=== PATIENT | female | born 1960 | race Caucasian/White ===

== ENCOUNTER 2022-08-06 09:59 | Outpatient (OUT) | payer BC, SELFPAY ==
--- NOTE | 2022-08-06 10:01 | XR_ITS ---
[address] [address] Patient Name: SHELLEY PITTMAN MRN: [id number] date: 1960 Sex: F Assigned Patient Location: [facility] Current Patient Location: [facility] Accession/Order Number: [id number] Exam Date: 08/06/2022 10:01 Report Date: 08/06/2022 10:26 At the request of: MORENITA MODI Procedure: XR foot RT min 3V PROCEDURE: XR foot RT min 3V COMPARISON: 07/08/2022 HISTORY: RIGHT FOOT PAIN FINDINGS: BONES:Continued healing of a stable nondisplaced nonangulated extra-articular fracture base of the fifth metatarsal. No new fracture or dislocation. Stable degenerative changes. Moderate enthesopathic spurring of the calcaneus at the Achilles insertion SOFT TISSUES:Negative. No visible soft tissue swelling. EFFUSION:None visible. OTHER: Negative. IMPRESSION: Stable healing fracture base of the fifth metatarsal Electronically authenticated by: SIVA HUNTER Date: 08/06/2022 10:26
== END 2022-08-06 10:00 ==
PROVIDERS: PCP Physician Assistant; Visit Provider Physician Assistant
DX: M84.374D Stress fracture, right foot, subsequent encounter for fracture with routine healing (principal)
CPT/HCPCS: 73630

== ENCOUNTER 2022-09-09 10:26 | Outpatient (OUT) | payer BC, SELFPAY ==
--- NOTE | 2022-09-09 10:30 | XR_ITS ---
[address] [address] Patient Name: SHELLEY PITTMAN MRN: [id number] date: 1960 Sex: F Assigned Patient Location: [facility] Current Patient Location: [facility] Accession/Order Number: [id number] Exam Date: 09/09/2022 10:30 Report Date: 09/09/2022 12:42 At the request of: JIGNA BOYKIN Procedure: XR foot RT min 3V PROCEDURE: XR foot RT min 3V DATE: 09/09/2022 9:30 AM CDT COMPARISONS: None CLINICAL INDICATION: RIGHT FOOT PAIN FINDINGS: Transverse fracture proximal aspect fifth metatarsal is again identified. The fracture site is nearly completely obscured by a small amount of sclerosis. There is slight associated callus formation. There is no new or progressing abnormality when compared to previous exam.. There is spurring off posterior os calcis at the attachment of the Achilles. There is mild first metatarsal phalangeal degenerative change. XR/XR foot RT min 3V IMPRESSION: Evidence of healed or nearly completely healed proximal fifth metatarsal fracture. There is slight progression of healing when compared to previous exam. The change from the previous exam is subtle.. Electronically authenticated by: ROSALIA VÁSQUEZ Date: 09/09/2022 12:42
== END 2022-09-09 10:27 | disposition home or self-care (01) ==
LOC: RAD 10:27
PROVIDERS: PCP Family Medicine; Visit Provider Podiatrist Foot & Ankle Surgery
DX: M84.374D Stress fracture, right foot, subsequent encounter for fracture with routine healing (principal)
CPT/HCPCS: 73630

== ENCOUNTER 2022-09-30 10:41 | Outpatient (OUT) | payer BC, SELFPAY ==
--- NOTE | 2022-09-30 10:42 | XR_ITS ---
The [address] [address] Patient Name: SHELLEY PITTMAN MRN: [id number] date: 1960 Sex: F Assigned Patient Location: [facility] Current Patient Location: [facility] Accession/Order Number: [id number] Exam Date: 09/30/2022 10:42 Report Date: 09/30/2022 12:11 At the request of: JIGNA BOYKIN Procedure: XR foot RT min 3V PROCEDURE: XR foot RT min 3V DATE: 09/30/2022 9:42 AM CDT COMPARISONS: 09/09/2022 CLINICAL INDICATION: RIGHT FOOT PAIN FINDINGS: There is no evidence of acute fracture.. There is a nearly completely healed fracture base of the fifth metatarsal similar to previous exam. Osseous structures all remain in good alignment. Mild first metatarsal phalangeal degenerative change again identified. Spurring off the posterior os calcis, stable. XR/XR foot RT min 3V IMPRESSION: Stable right foot radiographs. Electronically authenticated by: ROSALIA VÁSQUEZ Date: 09/30/2022 12:11
== END 2022-09-30 10:42 | disposition home or self-care (01) ==
LOC: RAD 10:41
PROVIDERS: PCP Family Medicine; Visit Provider Podiatrist Foot & Ankle Surgery
DX: M84.374K Stress fracture, right foot, subsequent encounter for fracture with nonunion (principal)
CPT/HCPCS: 73630

== ENCOUNTER 2023-07-17 21:11 | Emergency (ER) | payer BC, SELFPAY ==
[2023-07-17 21:24] VITALS: BP 180/80; PULSE 89; TEMP 36.6; O2SAT 96; BMI 29.7
--- NOTE | 2023-07-17 22:05 | ED.FALL1 ---
HPI HPI - Fall General Chief Complaint: Fall Stated Complaint: FALL, ABDOMINAL/BACK PAIN Time Seen by Provider: 07/17/23 21:25 Source: patient Mode of arrival: walk-in Limitations: no limitations History of Present Illness HPI Narrative: 63-year-old female presents for injuries after a fall. She tripped just before coming into the emergency department and she fell forward hitting her abdomen. She complains of pain across her upper abdomen and on the lateral lower rib region on the right as well. She sustained an abrasion to her upper lip but otherwise did not sustain any other injury. She does not have headache or neck pain. No shortness of breath. The pain is moderate and worse in certain positions. Related Data Allergies Allergy/AdvReac Type Severity Reaction Status Date / Time Penicillins Allergy Verified 07/17/23 22:43 Opioid HPI Opioid Management Most Recent Pain and Opioid Data: Last Pain Scale 8 07/18/23 00:20 Last ED Pain Assessment 07/17/23 22:57 Last MAR Pain Assessment 07/18/23 00:20 Review of Systems ROS Narrative A ten point review of systems is negative except as noted above. Exam Narrative Exam Narrative: Nurses note and vital signs reviewed and patient is not hypoxic. General: The patient appears well and in no apparent distress. Patient is resting comfortably on cart. Skin: Warm, dry, no pallor noted. There is no rash noted. Head: Normocephalic, atraumatic Eye: Normal conjunctiva, no drainage Ears, Nose, Mouth, and Throat: oral mucosa is moist. Nares patent. Upper lip has a very small abrasion laterally. No laceration. No intraoral laceration or chipped teeth. Cardiovascular: Regular Rate and Rhythm Respiratory: Patient is in no distress, no accessory muscle use, lungs are clear to auscultation, no wheezing, rales or rhonchi Back: She has tenderness to the right lower lateral to posterior rib region. There is no crepitus bruise or abrasion or focal area of tenderness. GI: She has tenderness across her upper abdomen. There is no bruises or abrasions to the abdomen. Musculoskeletal: No palpable tenderness to her extremities. Neurological: A&O, normal speech Psychiatric: Cooperative Constitutional Vital Signs, click to edit/add: Last Vital Signs Temp 97.9 F 07/17/23 21:24 Pulse 89 07/17/23 21:24 Resp 17 07/17/23 21:24 BP 180/80 H 07/17/23 21:24 Pulse Ox 96 07/17/23 21:24 O2 Del Method Room Air 07/17/23 21:24 Course Vital Signs Vital signs: Vital Signs Temperature 97.9 F 07/17/23 21:24 Pulse Rate 89 07/17/23 21:24 Respiratory Rate 17 07/17/23 21:24 Blood Pressure 180/80 H 07/17/23 21:24 Pulse Oximetry 96 07/17/23 21:24 Oxygen Delivery Method Room Air 07/17/23 21:24 Temperature 97.9 F 07/17/23 21:24 Pulse Rate 89 07/17/23 21:24 Respiratory Rate 17 07/17/23 21:24 Blood Pressure 180/80 H 07/17/23 21:24 Pulse Oximetry 96 07/17/23 21:24 Oxygen Delivery Method Room Air 07/17/23 21:24 MDM - Fall MDM Narrative Medical decision making narrative: An apparent adrenal hemorrhage is identified on the CAT scan per radiologist. The patient is hemodynamically stable and will need to be transferred to a trauma center. The patient is requesting to leave the hospital and I have spoken to Dr. Plasencia who accepts the patient there and we will transfer her emergency department to emergency department. Findings are discussed thoroughly with the patient and her . Differential Diagnosis Differential diagnosis: Likely other (Abdominal contusion, hepatic injury, renal injury, bowel injury) Lab Data Attestation: I reviewed the patient's lab results. Labs: Lab Results 07/17/23 07/17/23 Range/Units 22:03 22:15 WBC 11.3 H (4.0-11.0) 10^3/uL RBC 4.16 L (4.20-5.40) 10^6/uL Hgb 12.6 (12.0-16.0) g/dL Hct 37.6 (36.0-48.0) % MCV 90.4 (81.0-99.0) fL MCH 30.3 (26.7-34.0) pg MCHC 33.5 (29.9-35.2) g/dL RDW 11.9 (11.0-15.0) % Plt Count 349 (150-450) 10^3/uL MPV 9.4 L (9.5-13.5) fL Neut % (Auto) 73.1 (43.0-75.0) % Lymph % (Auto) 16.7 L (20.5-60.0) % [facility] % (Auto) 8.1 (1.7-12.0) % Eos % (Auto) 1.2 (0.9-7.0) % Baso % (Auto) 0.5 (0.2-2.0) % Neut # (Auto) 8.3 H (1.4-6.5) 10^3/uL Lymph # (Auto) 1.9 (1.2-3.8) 10^3/uL [facility] # (Auto) 0.9 H (0.3-0.8) 10^3/uL Eos # (Auto) 0.1 (0.0-0.7) 10^3/uL Baso # (Auto) 0.1 (0.0-0.1) 10^3/uL Abs Immat Gran (auto) 0.04 H (0.00-0.03) 10^3/uL Imm/Tot Granulo (auto) 0.4 (0.0-0.5) % Sodium 140 (136-145) mmol/L Potassium 2.9 L* (3.5-5.1) mmol/L Chloride 102 (98-107) mmol/L Carbon Dioxide 29.0 (21.0-32.0) mmol/L Anion Gap 11.9 BUN 18.0 (7.0-18.0) mg/dL Creatinine 0.67 (0.55-1.02) mg/dL Est GFR ( Amer) >60 (>=60) Est GFR (Non-Af Amer) >60 (>=60) BUN/Creatinine Ratio 26.9 Glucose 120 H (74-106) mg/dL Calcium 9.0 (8.5-10.1) mg/dL Imaging Data CT scan - abdomen: Radiologist's impression: ITS Impressions Abdomen/Pelvis CT 07/17/23 22:45 IMPRESSION: 1. Diffuse enlargement of the right adrenal gland which measures 57 Hounsfield units with surrounding fat stranding, this is concerning for adrenal hemorrhage. 2. Probable hepatic steatosis. 3. Nonobstructing left renal calculus measuring 6 millimeter. Electronically authenticated by: CLEO Rojas: 07/17/2023 23:51 Critical Care Time Critical Care Time Critical Care Time: Yes Total Critical Care Time: 35 Attestation: Due to the high probability of sudden and clinically significant deterioration in the patient's condition he/she required the highest level of my preparedness to intervene urgently I provided critical care time including documentation time, medication orders and management, reevaluation, vital sign assessment, ordering and reviewing of lab tests, ordering and reviewing of x-ray studies, and admission orders. Aggregate critical care time is 35 minutes including only time during which I was engaged in work directly related to his/her care and did not include time spent treating other patients simultaneously. Discharge Plan Discharge Chief Complaint: Fall Clinical Impression: Adrenal hemorrhage Patient Disposition: [facility] Time of Disposition Decision: 00:24 Discharge Location: [facility] Condition: Fair Mode of Transportation: EMS
[2023-07-17 22:15] VITALS: BP 169/75; PULSE 75; O2SAT 95
[2023-07-17] MEDS: MORPHINE SULFATE 4 MG/ML VIAL 2 MG IV (22:18)
[2023-07-17 22:28] LABS: Anion Gap 11.9; BUN Creatinine Ratio 26.9; Chloride 102 mmol/L (98-107); Estimated GFR (African America >60 (>=60); Estimated GFR (Non-African Ame >60 (>=60); Glucose 120 mg/dL (74-106); Sodium 140 mmol/L (136-145)
[2023-07-17 22:32] LABS: Potassium 2.9 mmol/L (3.5-5.1)
--- NOTE | 2023-07-17 22:45 | CT_ITS ---
The [address] [address] Patient Name: SHELLEY PITTMAN MRN: [id number] date: 1960 Sex: F Assigned Patient Location: ER Current Patient Location: ER Accession/Order Number: [id number] Exam Date: 07/17/2023 22:50 Report Date: 07/17/2023 23:51 At the request of: SAURABH DYSON Procedure: CT abdomen pelvis w con EXAM: CT abdomen pelvis w con HISTORY: fell, hit abd COMPARISON: None. TECHNIQUE: CT of abdomen and pelvis with intravenous contrast. Delayed imaging of the bladder was obtained. Dose reduction techniques were achieved by using automated exposure control and/or adjustment of mA and/or kV according to patient size and/or use of iterative reconstruction technique. FINDINGS: TUBES AND IMPLANTS: None. LOWER CHEST: Unremarkable ABDOMEN and PELVIS ABDOMINAL WALL AND SOFT TISSUES: Unremarkable. BONES: Multilevel degenerative changes of the spine. No acute fracture or dislocation ARTERIES: Mild to moderate aortoiliac atherosclerosis without aneurysm VEINS: Unremarkable. LYMPH NODES: Unremarkable. PERITONEUM/ RETROPERITONEUM: There is fat stranding seen around the right adrenal gland. BOWEL: No obstruction APPENDIX: Unremarkable LIVER: Probable steatosis. GALLBLADDER: Unremarkable. BILE DUCTS: Not dilated SPLEEN: Unremarkable. PANCREAS: Unremarkable. ADRENALS: Diffuse enlargement of the right adrenal gland which measures 57 Hounsfield units. There is surrounding fat stranding. Left adrenal gland is unremarkable KIDNEYS/ URETERS: Nonobstructing left renal calculus measuring 6 millimeters. Left renal cyst. No right stones or hydronephrosis. REPRODUCTIVE ORGANS: Unremarkable URINARY BLADDER: Unremarkable. CT/CT abdomen pelvis w con IMPRESSION: 1. Diffuse enlargement of the right adrenal gland which measures 57 Hounsfield units with surrounding fat stranding, this is concerning for adrenal hemorrhage. 2. Probable hepatic steatosis. 3. Nonobstructing left renal calculus measuring 6 millimeter. Electronically authenticated by: CLEO RUBIO Date: 07/17/2023 23:51
[2023-07-17 22:50] LABS: Basophils Absolute Auto 0.1 10^3/uL (0.0-0.1); Basophils Percent Auto 0.5 % (0.2-2.0); Eosinophils Absolute Auto 0.1 10^3/uL (0.0-0.7); Eosinophils Percent Auto 1.2 % (0.9-7.0); Hematocrit 37.6 % (36.0-48.0); Hemoglobin 12.6 g/dL (12.0-16.0); Immature Granulocytes Abs Auto 0.04 10^3/uL (0.00-0.03); Immature Granulocytes Pct Auto 0.4 % (0.0-0.5); Lymphocytes Absolute Auto 1.9 10^3/uL (1.2-3.8); Lymphocytes Percent Auto 16.7 % (20.5-60.0); Mean Corpuscular HGB Conc 33.5 g/dL (29.9-35.2); Mean Corpuscular Hemoglobin 30.3 pg (26.7-34.0); Mean Corpuscular Volume 90.4 fL (81.0-99.0); Mean Platelet Volume 9.4 fL (9.5-13.5); Monocytes Absolute Auto 0.9 10^3/uL (0.3-0.8); Monocytes Percent Auto 8.1 % (1.7-12.0); Neutrophils Absolute Auto 8.3 10^3/uL (1.4-6.5); Neutrophils Percent Auto 73.1 % (43.0-75.0); Platelet Count 349 10^3/uL (150-450); Red Blood Count 4.16 10^6/uL (4.20-5.40); Red Cell Distribution Width 11.9 % (11.0-15.0); White Blood Count 11.3 10^3/uL (4.0-11.0)
[2023-07-17 23:00] VITALS: BP 172/86; PULSE 65; O2SAT 95
[2023-07-17 23:50] VITALS: PULSE 72; O2SAT 96
[2023-07-18] VITALS: BP 167/87; PULSE 72; O2SAT 95
[2023-07-18] MEDS: MORPHINE SULFATE 4 MG/ML VIAL 2 MG IV (00:20)
[2023-07-18 00:29] VITALS: BP 148/64; PULSE 74; O2SAT 97
[2023-07-18 02:12] VITALS: PULSE 72; O2SAT 97
== END 2023-07-18 02:14 | disposition short-term general hospital (02) ==
PROVIDERS: Emergency Provider Emergency Medicine; PCP Family Medicine
DX: S37.818A Other injury of adrenal gland, initial encounter (principal); W01.10XA Fall on same level from slipping, tripping and stumbling with subsequent striking against unspecified object, initial encounter
CPT/HCPCS: 36415; 74177; 80048; 85025; 96374; 96376; 99285; Q9967

== ENCOUNTER 2023-08-02 05:55 | Emergency (ER) | payer BC, SELFPAY ==
[2023-08-02] VITALS (14 sets, daily range): BP systolic 138–146; BP diastolic 80–81; PULSE 64–92; TEMP 36.9; O2SAT 93–96; BMI 29.6
--- NOTE | 2023-08-02 06:18 | ECG_ITS ---
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
--- NOTE | 2023-08-02 06:19 | ED_ITS ---
HPI HPI - General Adult General Chief complaint: Extremity Problem, Nontraumatic Stated complaint: aniket horse R calf/flank/chest/ pain cough fever Time Seen by Provider: 08/02/23 06:12 Source: patient Limitations: no limitations History of Present Illness HPI narrative: 63-year-old female presented to the emergency department for chief complaint of right calf pain. She is worried about a blood clot. She had a recent hospitalization for a right adrenal hemorrhage which did not require surgery. Her left groin has been hurting and then she had some sharp pains in her chest and she was worried about a blood clot. No fever or productive cough. She has never had a DVT. Related Data Allergies Allergy/AdvReac Type Severity Reaction Status Date / Time Penicillins Allergy Verified 08/02/23 06:04 Opioid HPI Opioid Management Most Recent Opioid Data: Last Pain Scale 8 07/18/23 00:20 Review of Systems ROS Narrative A ten point review of systems is negative except as noted above. Exam Narrative Exam Narrative: Nurses note and vital signs reviewed and patient is not hypoxic. General: The patient appears well and in no apparent distress. Patient is resting comfortably on cart. Skin: Warm, dry, no pallor noted. There is no rash noted. Head: Normocephalic, atraumatic Eye: Normal conjunctiva, no drainage Ears, Nose, Mouth, and Throat: oral mucosa is moist. Nares patent. Cardiovascular: Regular Rate and Rhythm Respiratory: Patient is in no distress, no accessory muscle use, lungs are clear to auscultation, no wheezing, rales or rhonchi Back: non-tender GI: Soft and nontender Musculoskeletal: No mass swelling rash or bruising in the right calf area Neurological: Awake and alert Psychiatric: Cooperative Constitutional Vital Signs, click to edit/add: Last Vital Signs Temp 98.5 F 08/02/23 06:00 Pulse 92 H 08/02/23 06:00 Resp 16 08/02/23 06:00 BP 146/81 H 08/02/23 06:00 Pulse Ox 95 08/02/23 06:00 O2 Del Method Room Air 08/02/23 06:00 Course Vital Signs Vital signs: Vital Signs Temperature 98.5 F 08/02/23 06:00 Pulse Rate 92 H 08/02/23 06:00 Respiratory Rate 16 08/02/23 06:00 Blood Pressure 146/81 H 08/02/23 06:00 Pulse Oximetry 95 08/02/23 06:00 Oxygen Delivery Method Room Air 08/02/23 06:00 Temperature 98.5 F 08/02/23 06:00 Pulse Rate 92 H 08/02/23 06:00 Respiratory Rate 16 08/02/23 06:00 Blood Pressure 146/81 H 08/02/23 06:00 Pulse Oximetry 95 08/02/23 06:00 Oxygen Delivery Method Room Air 08/02/23 06:00 Medical Decision Making MDM Narrative Medical decision making narrative: Tests are ordered including venous Doppler and the patient is signed out to Dr. Graves. Discharge Plan Discharge Chief Complaint: Extremity Problem, Nontraumatic Clinical Impression: Leg pain Patient Disposition: Still a Patient Print Language: Gibraltarian Referrals: ANA FOSTER [Primary Care Provider] - 1 week
--- OUTSIDE RECORDS SUMMARY | 2023-08-02 06:25 | XMS_ITS | CCD ---
Author Organization [facility] ion Partnership [facility] Care Team Providers Care Cut Off Machine Unloader Name Role Phone Unavailable Primary Care Provider UnavailKEYUR Montoya Attending Unavailable HIGHLANDER, JIGNA Cuba Attending Unavailable HIGHLANDER, JIGNA Cuba Admitting Unavailable ELSA, DR SIVA Corrales Consulting Unavailable LY, MORENITA Admitting Unavailable LY, MORENITA Attending Unavailable LY, MORENITA Consulting Unavailable ESTEVANEBSANDRA, DR KWESI Becerra Consulting Unavailable BRYANANDER, JIGNA Cuba Admitting Unavailable HIGHLANDER, JIGNA Cuba Attending Unavailable BRYANANDER, JIGNA Cuba Consulting Unavailable ZIEBER, DR KWESI Becerra Consulting Unavailable HIGHLANDER, JIGNA Cuba Admitting Unavailable HIGHLANDER, JIGNA Cuba Attending Unavailable HIGHLANDER, JIGNA Cuba Consulting Unavailable ZIEBSANDRA, DR KWESI Becerra Consulting Unavailable LY, MORENITA Admitting Unavailable LY, MORENITA Attending Unavailable LY, MORENITA Consulting Unavailable CRISTIAN, ANA F Primary Care Unavailable KWESI ADAMS Attending Unavailable SYLWIA ESCOBAR Admitting Unavailable CRISTIAN, ANA F Referring Unavailable CRISTIAN, ANA F Primary Care Unavailable PASTOR WILKINS Attending Unavailable CRISTIAN, ANA Referring Un[facility] Care Unavailable ERICA FOFANA Attending Unavailable ERICA FOFANA Referring Unavailable CRISTIAN, ANA F Attending Unavailable ERICA FOFANA Attending Unavailable ERICA FOFANA Referring Unavailable CRISTIAN, ANA F Attending Unavailable CRISTIAN, ANA F Attending Unavailable Allergies Allergy Classification Reported Allergen(s) Allergy Type Date of Onset Reaction(s) Facility Penicillins (antibiotic) (1 source) Penicillins; Translations: [PENICILLINS] Drug Allergy 7 [facility] (3 sources) Penicillins; Translations: [PENICILLINS] Propensity to adverse reactions to drug 7 [facility] Medications Completed/Discontinued Medications Medication Drug Class(es) Dates Sig (Normalized) Sig (Original) microencapsulated potassium chloride 20 meq extended release oral tablet (2 sources) Start: 01-03-2022 End: 01-03-2022 potassium chloride (K-DUR) tablet ER 20 mEq Problems Active Problems Problem Classification Problem Date Documented Date Episodic/Chronic Essential hypertension (1 source) Hypertensive disorder Onset: 07-23-2023 Chronic Fracture of lower limb (5 sources) Stress fracture, right foot, subsequent encounter for fracture with routine healing; Translations: [Nondisplaced fracture of fifth metatarsal bone, right foot, subsequent encounter for fracture with routine healing] Onset: 05-16-2022 Episodic Other and ill-defined heart disease (1 source) Other ill-defined heart diseases; Translations: [Other ill-defined heart diseases] Onset: 04-01-2020 Chronic Other connective tissue disease (4 sources) Pain in right foot; Translations: [PAIN IN RIGHT FOOT] Onset: 05-12-2022 Episodic Other endocrine disorders (1 source) Other adrenocortical insufficiency; Translations: [Other adrenocortical insufficiency] Onset: 07-19-2023 Chronic Other injuries and conditions due to external causes (1 source) Unspecified injury of abdomen, initial encounter; Translations: [Unspecified injury of abdomen, initial encounter] Onset: 07-18-2023 Episodic Other lower respiratory disease (2 sources) Dyspnea; Translations: [Shortness of breath] Onset: 01-03-2022 Episodic Other lower respiratory disease (1 source) Shortness of breath; Translations: [Shortness of breath] Onset: 01-03-2022 Episodic Residual codes; unclassified (1 source) Pain, unspecified; Translations: [Pain, unspecified] Onset: 07-18-2023 Episodic Spondylosis; intervertebral disc disorders; other back problems (3 sources) Neck pain; Translations: [Cervicalgia] Onset: 01-03-2022 Episodic Unclassified (1 source) Full code Onset: 07-18-2023 Unclassified (1 source) Supraventricular tachycardia, unspecified; Translations: [Supraventricular tachycardia, unspecified] Onset: 05-31-2017 Past or Other Problems Problem Classification Problem Date Documented Date Episodic/Chronic Other screening for suspected conditions (not mental disorders or infectious disease) (1 source) Abnormal result of other cardiovascular function study; Translations: [Abnormal result of other cardiovascular function study] Onset: 02-07-2020 Episodic Results Test Name Value Interpretation Reference Range Facility BASIC METABOLIC PANLon 07-18 Anion gap [Moles/Vol] 8 mmol/L Normal 5-15 [facility] Comment on above: Performed By: #### C BCA, 36494-7, PINR, 24306-1, 1798-8, CMP, 5643-2 #### [facility] ([id number]) [address], [address] [place] [address] Calcium [Mass/Vol] 7.9 mg/dL Low 8.5-10.5 [facility] Comment on above: Performed By: #### C BCA, 22832-1, PINR, 39299-1, 1798-8, CMP, 5643-2 #### [facility] ([id number]) [address], [address] [place] [address] Chloride [Moles/Vol] 109 mmol/L Normal 98-109 [facility] Comment on above: Performed By: #### C BCA, 20470-8, PINR, 98916-2, 1798-8, CMP, 5643-2 #### [facility] ([id number]) [address], [address] [place] [address] CO2 [Moles/Vol] 26 mmol/L Normal 22-32 [facility] Comment on above: Performed By: #### C BCA, 19490-6, PINR, 17044-7, 1798-8, CMP, 5643-2 #### [facility] ([id number]) [address], [address] [place] [address] Creatinine [Mass/Vol] 0.45 mg/dL Normal 0.40-1.00 [facility] Comment on above: Result Comment: METH OD TRACEABLE TO IDMS STANDARD Performed By: #### C BCA, 05142-6, PINR, 45406-3, 1798-8, CMP, 5643-2 #### [facility] ([id number]) [address], [address] [place] [address] eGFR (CKD-EPI) NON-RACE DEPENDENT >90 Normal >59 [facility] Comment on above: Result Comment: Reported eGFR is based on the CKD-EPI 2020 equation that does not use a race coefficient. Performed By: #### C BCA, 38207-9, PINR, 33701-2, 1798-8, CMP, 5643-2 #### [facility] ([id number]) [address], [address] [place] [address] Glucose [Mass/Vol] 95 mg/dL Normal 65-99 [facility] Comment on above: Performed By: #### C BCA, 99520-3, PINR, 47944-7, 1798-8, CMP, 5643-2 #### [facility] ([id number]) [address], [address] [place] [address] Potassium [Moles/Vol] 3.6 mmol/L Normal 3.5-5.0 [facility] Comment on above: Performed By: #### C BCA, 84424-6, PINR, 19012-3, 1798-8, CMP, 5643-2 #### [facility] ([id number]) [address], [address] [place] [address] Sodium [Moles/Vol] 143 mmol/L Normal 134-146 [facility] Comment on above: Performed By: #### C BCA, 57058-0, PINR, 58455-5, 1798-8, CMP, 5643-2 #### [facility] ([id number]) [address], [address] [place] [address] Urea nitrogen [Mass/Vol] 10 mg/dL Normal 5-27 [facility] Comment on above: Performed By: #### C BCA, 98158-6, PINR, 07312-0, 1798-8, CMP, 5643-2 #### [facility] ([id number]) [address], [address] [place] [address] CBC AND AUTO DIFFon 07-19-19 24 ABSOLUTE BASOPHIL 0.0 X10E9/L Normal 0.0-0.2 [facility] Comment on above: Performed By: #### C BCA, 25672-0, PINR, 51509-3, 1798-8, CMP, 5643-2 #### [facility] ([id number]) [address], [facility] [address] [place] [address] ABSOLUTE NEUTROPHIL 4.9 X10E9/L Normal 1.5-6.6 [facility] Comment on above: Performed By: #### C BCA, 60067-5, PINR, 78729-5, 1798-8, CMP, 5643-2 #### [facility] ([id number]) [address] [address] Basophils/100 WBC (Bld) 0.5 % Normal [facility] Comment on above: Performed By: #### C BCA, 48585-4, PINR, 34914-2, 1798-8, CMP, 5643-2 #### [facility] ([id number]) [address], [address] [address] Eosinophils (Bld) [#/Vol] 0.2 10*3/uL Normal 0.0-0.4 [facility] Comment on above: Performed By: #### C BCA, 15446-6, PINR, 28558-8, 1798-8, CMP, 5643-2 #### [facility] ([id number]) [address] [address] Eosinophils/100 WBC (Bld) 3.0 % Normal [facility] Comment on above: Performed By: #### C BCA, 08853-2, PINR, 65336-6, 1798-8, CMP, 5643-2 #### [facility] ([id number]) [address], [address] [place] [address] Erythrocyte distribution width (RBC) [Ratio] 12.2 % Normal 11.5-15.0 [facility] Comment on above: Performed By: #### C BCA, 79948-9, PINR, 85718-7, 1798-8, CMP, 5643-2 #### [facility] ([id number]) [address] [address] Hematocrit (Bld) [Volume fraction] 35.9 % Normal 35-47 [facility] Comment on above: Performed By: #### C BCA, 25153-2, PINR, 53099-6, 8-8, CMP, 5643-2 #### [facility] ([id number]) [address] [address] Hemoglobin (Bld) [Mass/Vol] 12.6 g/dL Normal 11.7-15.5 [facility] Comment on above: Performed By: #### C BCA, 50847-9, PINR, 26972-4, 8-8, CMP, 5643-2 #### [facility] ([id number]) [address] [address] Lymphocytes (Bld) [#/Vol] 1.7 10*3/uL Normal 1.0-3.5 [facility] Comment on above: Performed By: #### C BCA, 01967-6, PINR, 49550-4, 8-8, CMP, 5643-2 #### [facility] ([id number]) [address] [address] Lymphocytes/100 WBC (Bld) 22.7 % Normal [facility] Comment on above: Performed By: #### C BCA, 77107-2, PINR, 65154-0, 1798-8, CMP, 5643-2 #### [facility] ([id number]) [address] [address] MCH (RBC) [Entitic mass] 30.9 pg Normal 27-34 [facility] Comment on above: Performed By: #### C BCA, 49395-5, PINR, 54618-5, 1798-8, CMP, 5643-2 #### [facility] ([id number]) [address] [address] MCHC (RBC) [Mass/Vol] 34.9 g/dL Normal 32-36 [facility] Comment on above: Performed By: #### C BCA, 00166-6, PINR, 07827-0, 8-8, CMP, 5643-2 #### [facility] ([id number]) [address] [address] MCV (RBC) [Entitic vol] 89 fL Normal 80-100 [facility] Comment on above: Performed By: #### C BCA, 97291-2, PINR, 43242-4, 1797-8, CMP, 5643-2 #### [facility] ([id number]) [address] [address] Monocytes (Bld) [#/Vol] 0.8 10*3/uL Normal 0-0.9 [facility] Comment on above: Performed By: #### C BCA, 43532-1, PINR, 01742-6, 1797-8, CMP, 5643-2 #### [facility] ([id number]) [address] [address] Monocytes/100 WBC (Bld) 10.1 % Normal [facility] Comment on above: Performed By: #### C BCA, 60784-9, PINR, 01153-4, 1797-8, CMP, 5643-2 #### [facility] ([id number]) [address] [address] Neutrophils/100 WBC (Bld) 63.7 % Normal [facility] Comment on above: Performed By: #### C BCA, 61550-9, PINR, 08897-6, 1798-8, CMP, 5643-2 #### [facility] ([id number]) [address] [address] [place] [address] Platelet mean volume (Bld) [Entitic vol] 7.8 fL Normal 7-12 [facility] Comment on above: Performed By: #### C BCA, 60847-3, PINR, 14356-3, 1798-8, CMP, 5643-2 #### [facility] ([id number]) [address] [address] Platelets (Bld) [#/Vol] 298 10*3/uL Normal 150-450 [facility] Comment on above: Performed By: #### C BCA, 15036-3, PINR, 91165-9, 1798-8, CMP, 5643-2 #### [facility] ([id number]) [address] [address] RBC COUNT 4.06 X10E12/L Normal 3.80-5.20 [facility] Comment on above: Performed By: #### C BCA, 62878-3, PINR, 76751-2, 1798-8, CMP, 5643-2 #### [facility] ([id number]) [address] [address] WBC (Bld) [#/Vol] 7.6 10*3/uL Normal 4.0-11.0 [facility] Comment on above: Performed By: #### C BCA, 07867-3, PINR, 38317-9, 1798-8, CMP, 5643-2 #### [facility] ([id number]) [address] [address] AMYLASEon 07-18-2023 Amylase [Catalytic activity/Vol] 83 U/L Normal 28-100 [facility] Comment on above: Performed By: #### C BCA, 26623-1, PINR, 45342-7, 1798-8, CMP, 5643-2 #### [facility] ([id number]) [address], [address] [place] [address] Aldosterone [Mass/Vol]on ALDOSTERONE 12.6 ng/dL Normal [facility] Comment on above: Result Comment: NOTE INTERPRETIVE INFORMATION: Aldosterone, Serum Reference intervals for age 15 and older: Upright ......... 4.0 - 31.0 ng/dL Supine .......... Less than or equal to 16.0 ng/dL Unspecified ..... Less than or equal to 31.0 ng/dL Normal serum levels of aldosterone are dependent on the sodium intake and whether the patient is upright or supine. High sodium intake will tend to suppress serum aldosterone, whereas low sodium intake will elevate serum aldosterone. The reference intervals for serum aldosterone are based on normal sodium intake. Access complete set of age- and/or gender-specific reference intervals for this test in the [facility] ([employer]). Performed By: [employer] [address] [place] [address] Wharfmaster: Jovanni Luna MD, PhD CLIA Number: [id number] CBC AND AUTO DIFFon 07-18-19 24 ABSOLUTE BASOPHIL 0.1 X10E9/L Normal 0.0-0.2 [facility] Comment on above: Performed By: #### C BCA, 90787-4, PINR, 75915-3, 1798-8, CMP, 5643-2 #### [facility] ([id number]) [address] [facility] [place] [address] ABSOLUTE NEUTROPHIL 12.1 X10E9/L High 1.5-6.6 [facility] Comment on above: Performed By: #### C BCA, 72158-6, PINR, 17294-4, 1798-8, CMP, 5643-2 #### [facility] ([id number]) [address], [address] [place] [address] Basophils/100 WBC (Bld) 0.7 % Normal [facility] Comment on above: Performed By: #### C BCA, 93862-6, PINR, 52721-2, 1798-8, CMP, 5643-2 #### [facility] ([id number]) [address], [address] [place] [address] Eosinophils (Bld) [#/Vol] 0.0 10*3/uL Normal 0.0-0.4 [facility] Comment on above: Performed By: #### C BCA, 19197-6, PINR, 28860-8, 1797-8, CMP, 5643-2 #### [facility] ([id number]) [address] [address] Eosinophils/100 WBC (Bld) 0.1 % Normal [facility] Comment on above: Performed By: #### C BCA, 79010-6, PINR, 38241-4, 1797-8, CMP, 5643-2 #### [facility] ([id number]) [address] [address] Erythrocyte distribution width (RBC) [Ratio] 12.1 % Normal 11.5-15.0 [facility] Comment on above: Performed By: #### C BCA, 29209-8, PINR, 40598-3, 8-8, CMP, 5643-2 #### [facility] ([id number]) [address] [address] [place] [address] Hematocrit (Bld) [Volume fraction] 37.1 % Normal 35-47 [facility] Comment on above: Performed By: #### C BCA, 26107-6, PINR, 98024-3, 1798-8, CMP, 5643-2 #### [facility] ([id number]) [address] [address] [place] [address] Hemoglobin (Bld) [Mass/Vol] 12.7 g/dL Normal 11.7-15.5 [facility] Comment on above: Performed By: #### C BCA, 59597-8, PINR, 54136-9, 1798-8, CMP, 5643-2 #### [facility] ([id number]) [address] [address] Lymphocytes (Bld) [#/Vol] 1.7 10*3/uL Normal 1.0-3.5 [facility] Comment on above: Performed By: #### C BCA, 09248-6, PINR, 67473-5, 8-8, CMP, 5643-2 #### [facility] ([id number]) [address] [address] Lymphocytes/100 WBC (Bld) 11.2 % Normal [facility] Comment on above: Performed By: #### C BCA, 51612-9, PINR, 56803-6, 1798-8, CMP, 5643-2 #### [facility] ([id number]) [address] [address] MCH (RBC) [Entitic mass] 30.4 pg Normal 27-34 [facility] Comment on above: Performed By: #### C BCA, 77235-3, PINR, 91518-2, 8-8, CMP, 5643-2 #### [facility] ([id number]) [address] [address] MCHC (RBC) [Mass/Vol] 34.2 g/dL Normal 32-36 [facility] Comment on above: Performed By: #### C BCA, 93815-7, PINR, 73731-6, 1798-8, CMP, 5643-2 #### [facility] ([id number]) [address] [place] [address] MCV (RBC) [Entitic vol] 89 fL Normal 80-100 [facility] Comment on above: Performed By: #### C BCA, 84949-8, PINR, 64017-6, 1798-8, CMP, 5643-2 #### [facility] ([id number]) [address], [facility] [address] [place] [address] Monocytes (Bld) [#/Vol] 1.0 10*3/uL High 0-0.9 [facility] Comment on above: Performed By: #### C BCA, 51640-0, PINR, 21365-8, 8-8, CMP, 5643-2 #### [facility] ([id number]) [address], [facility] [address] [place] [address] Monocytes/100 WBC (Bld) 6.9 % Normal [facility] Comment on above: Performed By: #### C BCA, 52210-0, PINR, 27115-1, 1797-8, CMP, 5643-2 #### [facility] ([id number]) [address], [facility] [address] [place] [address] Neutrophils/100 WBC (Bld) 81.1 % Normal [facility] Comment on above: Performed By: #### Neyda BCA, 49165-5, PINR, 04592-4, 8-8, CMP, 5643-2 #### [facility] ([id number]) [address], [address] [place] [address] Platelet mean volume (Bld) [Entitic vol] 7.5 fL Normal 7-12 [facility] Comment on above: Performed By: #### C BCA, 12036-8, PINR, 37788-0, 1797-8, CMP, 5643-2 #### [facility] ([id number]) [address], [address] [place] [address] Platelets (Bld) [#/Vol] 341 10*3/uL Normal 150-450 [facility] Comment on above: Performed By: #### C BCA, 74381-5, PINR, 14423-8, 1798-8, CMP, 5643-2 #### [facility] ([id number]) [address], [address] [place] [address] RBC COUNT 4.17 X10E12/L Normal 3.80-5.20 [facility] Comment on above: Performed By: #### C BCA, 53371-2, PINR, 25151-1, 1798-8, CMP, 5643-2 #### [facility] ([id number]) [address], [address] [place] [address] WBC (Bld) [#/Vol] 14.9 10*3/uL High 4.0-11.0 [facility] Comment on above: Performed By: #### C BCA, 52306-9, PINR, 85973-4, 1798-8, CMP, 5643-2 #### [facility] ([id number]) [address], [address] [place] [address] COMPREHENSIVE METABOLIC PANE Gomez 07-18-2023 Albumin [Mass/Vol] 4.2 g/dL Normal 3.2-5.3 [facility] Comment on above: Performed By: #### C BCA, 28168-5, PINR, 67888-2, 1798-8, CMP, 5643-2 #### [facility] ([id number]) [address], [address] [place] [address] ALP [Catalytic activity/Vol] 56 U/L Normal 39-130 [facility] Comment on above: Performed By: #### C BCA, 64802-3, PINR, 27400-4, 1798-8, CMP, 5643-2 #### [facility] ([id number]) [address], [address] [place] [address] ALT [Catalytic activity/Vol] 21 U/L Normal 0-31 [facility] Comment on above: Performed By: #### C BCA, 76740-2, PINR, 42686-6, 1798-8, CMP, 5643-2 #### [facility] ([id number]) [address], [address] [place] [address] Anion gap [Moles/Vol] 11 mmol/L Normal 5-15 [facility] Comment on above: Performed By: #### C BCA, 78184-8, PINR, 39832-9, 1798-8, CMP, 5643-2 #### [facility] ([id number]) [address], [address] [place] [address] AST [Catalytic activity/Vol] 24 U/L Normal 0-41 [facility] Comment on above: Performed By: #### C BCA, 89142-8, PINR, 10607-4, 1798-8, CMP, 5643-2 #### [facility] ([id number]) [address], [address] [place] [address] Bilirubin [Mass/Vol] 0.6 mg/dL Normal 0.3-1.2 [facility] Comment on above: Performed By: #### C BCA, 72781-2, PINR, 35312-5, 1798-8, CMP, 5643-2 #### [facility] ([id number]) [address], [address] [place] [address] Calcium [Mass/Vol] 8.7 mg/dL Normal 8.5-10.5 [facility] Comment on above: Performed By: #### C BCA, 29488-9, PINR, 28574-8, 1798-8, CMP, 5643-2 #### [facility] ([id number]) [address], [address] [place] [address] Chloride [Moles/Vol] 101 mmol/L Normal 98-109 [facility] Comment on above: Performed By: #### C BCA, 56540-3, PINR, 39221-9, 1798-8, CMP, 5643-2 #### [facility] ([id number]) [address], [address] [place] [address] CO2 [Moles/Vol] 27 mmol/L Normal 22-32 [facility] Comment on above: Performed By: #### C BCA, 43209-7, PINR, 83664-9, 1798-8, CMP, 5643-2 #### [facility] ([id number]) [address], [address] [place] [address] Creatinine [Mass/Vol] 0.57 mg/dL Normal 0.40-1.00 [facility] Comment on above: Result Comment: METH OD TRACEABLE TO IDMS STANDARD Performed By: #### C BCA, 70111-9, PINR, 10636-9, 1797-8, CMP, 5643-2 #### [facility] ([id number]) [address], [address] [place] [address] eGFR (CKD-EPI) NON-RACE DEPENDENT >90 Normal >59 [facility] Comment on above: Result Comment: Reported eGFR is based on the CKD-EPI 2020 equation that does not use a race coefficient. Performed By: #### C BCA, 34678-2, PINR, 45293-6, 1797-8, CMP, 5643-2 #### [facility] ([id number]) [address], [address] [place] [address] Glucose [Mass/Vol] 144 mg/dL High 65-99 [facility] Comment on above: Performed By: #### C BCA, 84194-6, PINR, 93543-8, 1798-8, CMP, 5643-2 #### [facility] ([id number]) [address], [address] [place] [address] Potassium [Moles/Vol] 3.3 mmol/L Low 3.5-5.0 [facility] Comment on above: Performed By: #### C BCA, 05185-7, PINR, 52378-1, 1798-8, CMP, 5643-2 #### [facility] ([id number]) [address], [address] [place] [address] Protein [Mass/Vol] 6.7 g/dL Normal 6.0-8.0 [facility] Comment on above: Performed By: #### C BCA, 26620-7, PINR, 78432-7, 1798-8, CMP, 5643-2 #### [facility] ([id number]) [address], [address] [place] [address] Sodium [Moles/Vol] 139 mmol/L Normal 134-146 [facility] Comment on above: Performed By: #### C BCA, 27396-8, PINR, 52178-5, 1798-8, CMP, 5643-2 #### [facility] ([id number]) [address], [address] [place] [address] Urea nitrogen [Mass/Vol] 15 mg/dL Normal 5-27 [facility] Comment on above: Performed By: #### C BCA, 14699-0, PINR, 47279-4, 1798-8, CMP, 5643-2 #### [facility] ([id number]) [address], [address] [place] [address] Corticotropin (P) [Mass/Vol] on 07-18-2023 ACTH 10.8 pg/mL Normal 7.2-63.3 [facility] Comment on above: Result Comment: NOTE ACTH Reference Range: 7-10 am: 7.2 - 63.3 pg/mL Test Performed By: [facility] [employer] [address] [place] [address] Wharfmaster: Robbie Tilley III, M.D. CLIA #[id number] Cortisol [Mass/Vol]on 2023 CORTISOL 4.9 ug/dL Normal [facility] Comment on above: Result Comment: Due to the diurnal variation of cortisol levels in normal subjects, all cortisol measurements should be referenced to the time of day of sample collection. AM Cortisol Age>=6 6.7-22.4 ug/dL PM Cortisol Age>=6 <10 ug/dL Performed By: #### H H, 2823-3, 2143-6 #### [facility] ([id number]) [address], [address] [place] [address] ETHANOLon 07-18-2023 Ethanol [Mass/Vol] mg/dL Normal 0.00-0.08 [facility] Comment on above: Result Comment: This report is intended for use in clinical monitoring or management of patients. Performed By: #### C ARMANDO, 33858-8, PINR, 65190-3, 1798-8, CMP, 5643-2 #### [facility] ([id number]) [address], [address] [place] [address] Fibrinogen Coagulation.deriv ed (PPP) [Mass/Vol]on 07-18-2023 FIBRINOGEN 317 mg/dL Normal 190-480 [facility] Comment on above: Performed By: #### C BCA, 29049-3, PINR, 72502-5, 1798-8, CMP, 5643-2 #### [facility] ([id number]) [address], [address] [place] [address] HGB AND HCTon 07-18-2023 Hematocrit (Bld) [Volume fraction] 35.8 % Normal 35-47 [facility] Comment on above: Performed By: #### Neyda BCA, 70344-7, PINR, 38866-2, 1798-8, CMP, 5643-2 #### [facility] ([id number]) [address], [address] [place] [address] Hemoglobin (Bld) [Mass/Vol] 12.3 g/dL Normal 11.7-15.5 [facility] Comment on above: Performed By: #### C BCA, 67245-0, PINR, 96026-6, 1798-8, CMP, 5643-2 #### [facility] ([id number]) [address], [facility] [address] [place] [address] Hematocrit (Bld) [Volume fraction] 36.4 % Normal 35-47 [facility] Comment on above: Performed By: #### C BCA, 59131-0, PINR, 74965-1, 1798-8, CMP, 5643-2 #### [facility] ([id number]) [address], [address] [place] [address] Hemoglobin (Bld) [Mass/Vol] 12.9 g/dL Normal 11.7-15.5 [facility] Comment on above: Performed By: #### C BCA, 27832-2, PINR, 83641-7, 8-8, CMP, 5643-2 #### [facility] ([id number]) [address], [facility] [address] [place] [address] Hematocrit (Bld) [Volume fraction] 37.8 % Normal 35-47 [facility] Comment on above: Performed By: #### Virginia Coleman, 3, 2142-07 #### [facility] ([id number]) [address], [address] [place] [address] Hemoglobin (Bld) [Mass/Vol] 12.7 g/dL Normal 11.7-15.5 [facility] Comment on above: Performed By: #### Virginia Coleman, 2822-04, 2142-07 #### [facility] ([id number]) [address], [address] [place] [address] POTASSIUMon 07-18-2023 Potassium [Moles/Vol] 3.7 mmol/L Normal 3.5-5.0 [facility] Comment on above: Performed By: #### H H, 2823-3, 2143-6 #### [facility] ([id number]) [address], [address] [place] [address] PROTIME AND INRon 07-18-2023 INR Coag (PPP) [Relative time] 1.0 {INR} Normal 0.8-1.1 [facility] Comment on above: Performed By: #### C BCA, 16955-6, PINR, 28015-0, 1798-8, CMP, 5643-2 #### [facility] ([id number]) [address] [facility] [place] [address] PT Coag (PPP) [Time] 11.9 s Normal 9.8-13.2 [facility] Comment on above: Performed By: #### C BCA, 72317-1, PINR, 86643-9, 1798-8, CMP, 5643-2 #### [facility] ([id number]) [address], [address] [place] [address] RENIN ACTIVITYon 07-18-2023 RENIN ACTIVITY 1.0 ng/mL/hr Normal [facility] Comment on above: Result Comment: NOTE INTERPRETIVE INFORMATION: Renin Activity Adult, Normal sodium diet: Supine ................. 0.2-1.6 ng/mL/hr Upright ................ 0.5-4.0 ng/mL/hr Children, Normal sodium diet, Supine: Pacific (1-7 days) ..... 2.0-35.0 ng/mL/hr Cord blood ............. 4.0-32.0 ng/mL/hr 1-12 mos ............... 2.4-37.0 ng/mL/hr 13 mos-3 yrs ........... 1.7-11.2 ng/mL/hr 4-5 yrs ................ 1.0- 6.5 ng/mL/hr 6-10 yrs ............... 0.5- 5.9 ng/mL/hr 11-15 yrs .............. 0.5- 3.3 ng/mL/hr Children, normal sodium diet, Upright: 0-3 yrs ................ Not Available 4-5 yrs ................ Less than or equal to 15 ng/mL/hr 6-10 yrs ............... Less than or equal to 17 ng/mL/hr 11-15 yrs .............. Less than or equal to 16 ng/mL/hr Plasma renin activity measures enzyme ability to convert angiotensinogen to angiotensin I and is limited by the availability of angiotensinogen. Plasma renin activity is not an accurate indicator of enzyme activity when angiotensinogen is decreased. This test was developed and its performance characteristics determined by [facility]. It has not been cleared or approved by the US Food and Drug Administration. This test was performed in a CLIA certified laboratory and is intended for clinical purposes. Performed By: [facility] [address] [place] [address] Wharfmaster: Jovanni Luna MD, PhD CLIA Number: [id number] aPTT Coag (PPP) [Time]on aPTT Coag (Bld) [Time] 32 s Normal 26-37 [facility] Comment on above: Performed By: #### C BCA, 47011-2, PINR, 94669-7, 1798-8, CMP, 5643-2 #### 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 No acute cardiac or pulmonary disease is identified. No worrisome mass lesions or infiltrates are seen. No pulmonary edema or pneumothorax is present. The right heart border is slightly ill defined with hazy density most likely reflecting the patient?s pectus excavatum deformity. Cardiac silhouette size is normal. Prominent aortic knob calcifications. IMPRESSION: COPD, no acute disease. TRANSCRIBED BY: ELECTRONICALLY SIGNED BY: Darrius Butler MD Normal Not Available BI MAMMOGRAM DIAGNOSTIC CALIXTO SYNTHESIS BILATERALon 05-11-2023 BI MAMMOGRAM DIAGNOSTIC TOMOSYNTHESIS BILATERAL This is a summary report. The complete report is available in the patient's medical record. If you cannot access the medical record, please contact the sending organization for a detailed fax or copy. EXAMINATION: BI MAMMOGRAM DIAGNOSTIC TOMOSYNTHESIS BILATERAL CLINICAL HISTORY:right breast pain COMPARISON: May 08, 2021, May 05, 2019. RESULT: Digital mammography and 3D Tomosynthesis was performed Density: Scattered fibroglandular density [2] Overall appearance is stable. Typically benign calcifications. There is no suspicious mass, asymmetry, architectural distortion, or calcification IMPRESSION: BIRADS 2 - Benign. Follow-up: Routine Screening [facility]amm Board Certified Radiologists. Accredited by the ACR and FDA. MAMMOGRAPHY IS VERY IMPORTANT TO YOUR HEALTH. THE [employer] GUIDELINES RECOMMEND THAT WOMEN 40 YEARS OF AGE AND OLDER SHOULD HAVE A MAMMOGRAM EVERY YEAR. A REMINDER LETTER WILL BE SENT AT THE APPROPRIATE TIME. THIS FACILITY UTILIZES A REMINDER SYSTEM TO ENSURE ALL PATIENTS RECEIVE REMINDER NOTIFICATIONS AT THE APPROPRIATE TIME BASED ON THE RECOMMENDATIONS OF THIS EXAM. THIS INCLUDES REMINDERS FOR ROUTINE SCREENING MAMMOGRAMS, DIAGNOSTIC MAMMOGRAMS IN WHICH THE PATIENT IS ASKED TO RETURN FOR ADDITIONAL VIEWS, OR OTHER BREAST IMAGING INTERVENTIONS WHEN APPROPRIATE. THE PATIENT WILL BE PLACED IN THE APPROPRIATE REMINDER SYSTEM INCLUDING A REMINDER AT THE APPROPRIATE TIME FOR ANY PENDING ADDITIONAL VIEWS. TRANSCRIBED BY: ELECTRONICALLY SIGNED BY: Darrius Butler MD Normal Not Available B-TYPE NATRIURETIC PEPTIDE ( BRAIN)on 01-03-2022 Natriuretic peptide B (Bld) [Mass/Vol] 13 pg/mL Normal 0-100 [facility] Comment on above: Order Comment: If hi story of congestive heart failure. Performed By: #### L AB980, BNP #### [facility] (DEFAULT) [address] [place] [address] Interpretation and review of laboratory results Normal [facility] Natriuretic peptide B (Bld) [Mass/Vol] 13 pg/mL 0 - 100 pg/mL [facility] CBC AND ELECTRONIC DIFFon Basophils (Bld) [#/Vol] 0.04 10*3/uL Normal 0.00-0.15 [facility] Comment on above: Performed By: #### L AB980, BNP #### [facility] (DEFAULT) [address] [place] [address] Basophils/100 WBC (Bld) 0.3 % Normal [facility] Comment on above: Performed By: #### L AB980, BNP #### [facility] (DEFAULT) [address] [place] [address] DIFF STATUS Electronic Differential Normal [facility] Comment on above: Performed By: #### L AB980, BNP #### [facility] (DEFAULT) [address] [place] [address] Eosinophils (Bld) [#/Vol] 0.10 10*3/uL Normal 0.00-0.42 [facility] Comment on above: Performed By: #### L AB980, BNP #### [facility] (DEFAULT) [address] [place] [address] Eosinophils/100 WBC (Bld) 0.8 % Normal [facility] Comment on above: Performed By: #### L AB980, BNP #### [facility] (DEFAULT) [address] [place] [address] Hematocrit (Bld) [Volume fraction] 44.0 % Normal 34.9-44.3 [facility] Comment on above: Performed By: #### L AB980, BNP #### [facility] (DEFAULT) [address] [place] [address] Hemoglobin (Bld) [Mass/Vol] 14.7 g/dL Normal 11.4-15.2 [facility] Comment on above: Performed By: #### L AB980, BNP #### [facility] (DEFAULT) [address] [place] [address] Immature Grans % 1.5 % Normal [facility] Comment on above: Performed By: #### L AB980, BNP #### [facility] (DEFAULT) [address] [place] [address] Immature Grans Absolute 0.19 K/uL High <=0.08 [facility] Comment on above: Performed By: #### L AB980, BNP #### [facility] (DEFAULT) [address] [place] [address] Lymphocytes (Bld) [#/Vol] 3.21 10*3/uL Normal 1.16-3.51 [facility] Comment on above: Performed By: #### L AB980, BNP #### [facility] (DEFAULT) [address] [place] [address] Lymphocytes/100 WBC (Bld) 24.7 % Normal [facility] Comment on above: Performed By: #### L AB980, BNP #### [facility] (DEFAULT) [address] [place] [address]51 MCV (RBC) [Entitic vol] 90.3 fL Normal 79.6-97.7 [facility] Comment on above: Performed By: #### L AB980, BNP #### [facility] (DEFAULT) [address] [place] [address] 12558 Mean Cell Hgb 30.2 pg Normal 25.9-33.9 [facility] Comment on above: Performed By: #### L AB980, BNP #### [facility] (DEFAULT) [address] [place] [address]171 Mean Cell Hgb Conc 33.4 g/dL Normal 31.4-35.9 [facility] Comment on above: Performed By: #### L AB980, BNP #### [facility] (DEFAULT) [address] [place] [address]64 Monocytes (Bld) [#/Vol] 1.01 10*3/uL High 0.22-0.87 [facility] Comment on above: Performed By: #### L AB980, BNP #### [facility] (DEFAULT) [address] [place] [address] 35104 Monocytes/100 WBC (Bld) 7.8 % Normal [facility] Comment on above: Performed By: #### L AB980, BNP #### [facility] (DEFAULT) [address] [place] [address]1912 Nucleated RBC 0.0 /100 WBC Normal <=0.2 [facility] Comment on above: Performed By: #### L AB980, BNP #### [facility] (DEFAULT) [address] [place] [address] 36899 Platelet mean volume (Bld) [Entitic vol] 9.0 fL Normal 8.5-12.2 [facility] Comment on above: Performed By: #### L AB980, BNP #### Joanne [facility] (DEFAULT) [address] [place] [address]30 Platelets (Bld) [#/Vol] 409 10*3/uL High 150-393 [facility] Comment on above: Performed By: #### L AB980, BNP #### [facility] (DEFAULT) [address] [place] [address]34 RBC (Bld) [#/Vol] 4.87 10*6/uL Normal 3.91-5.04 [facility] Comment on above: Performed By: #### L AB980, BNP #### [facility] (DEFAULT) [address] [place] [address] 82953 RBC Distribution 11.9 % Normal 10.8-14.9 [facility] Comment on above: Performed By: #### L AB980, BNP #### [facility] (DEFAULT) [address] [place] [address]451 Segs + Bands Auto 64.9 % Normal [facility] Comment on above: Performed By: #### L AB980, BNP #### [facility] (DEFAULT) [address] [place] [address] Segs + Bands,Absolute Auto 8.42 K/uL High 1.64-7.28 [facility] Comment on above: Performed By: #### L AB980, BNP #### [facility] (DEFAULT) [address] [place] [address] WBC (Bld) [#/Vol] 12.97 10*3/uL High 3.99-11.19 [facility] Comment on above: Performed By: #### L AB980, BNP #### [facility] (DEFAULT) [address] [place] [address] Basophils (Bld) [#/Vol] 0.04 10*3/uL 0.00 - 0.15 K/uL [facility] Basophils/100 WBC (Bld) 0.3 % [facility] Differential cell count method Nom (Bld) Electronic Differential [facility] Eosinophils (Bld) [#/Vol] 0.10 10*3/uL 0.00 - 0.42 K/uL [facility] Eosinophils/100 WBC (Bld) 0.8 % [facility] Erythrocyte distribution width (RBC) [Ratio] 11.9 % 10.8 - 14.9 % [facility] Hematocrit (Bld) [Volume fraction] 44.0 % 34.9 - 44.3 % [facility] Hemoglobin (Bld) [Mass/Vol] 14.7 g/dL 11.4 - 15.2 g/dL [facility] Immature granulocytes (Bld) [#/Vol] 0.19 10*3/uL High NINF - 0.08 K/uL [facility] Immature granulocytes/100 WBC (Bld) 1.5 % [facility] Interpretation and review of laboratory results Abnormal [facility] Lymphocytes (Bld) [#/Vol] 3.21 10*3/uL 1.16 - 3.51 K/uL [facility] Lymphocytes/100 WBC (Bld) 24.7 % [facility] MCH (RBC) [Entitic mass] 30.2 pg 25.9 - 33.9 pg [facility] MCHC (RBC) [Mass/Vol] 33.4 g/dL 31.4 - 35.9 g/dL [facility] MCV (RBC) [Entitic vol] 90.3 fL 79.6 - 97.7 fL [facility] Monocytes (Bld) [#/Vol] 1.01 10*3/uL High 0.22 - 0.87 K/uL [facility] Monocytes/100 WBC (Bld) 7.8 % [facility] Neutrophils (Bld) [#/Vol] 8.42 10*3/uL High 1.64 - 7.28 K/uL [facility] Nucleated RBC/100 WBC (Bld) [Ratio] 0.0 % [facility] Platelet mean volume (Bld) [Entitic vol] 9.0 fL 8.5 - 12.2 fL [facility] Platelets (Bld) [#/Vol] 409 10*3/uL High 150 - 393 K/uL [facility] RBC (Bld) [#/Vol] 4.87 10*6/uL [facility] Segmented neutrophils/100 WBC (Bld) 64.9 % [facility] WBC (Bld) [#/Vol] 12.97 10*3/uL High 3.99 - 11 .19 K/uL [facility] CHM 7 - EDon 01-03-2022 Anion gap [Moles/Vol] 11 mmol/L Normal 7-17 [facility] Comment on above: Performed By: #### L LATESHA C7ED #### [facility] (DEFAULT) [address] [address] Chloride [Moles/Vol] 100 mmol/L Normal 98-108 [facility] Comment on above: Performed By: #### L LATESHA C7ED #### [facility] (DEFAULT) [address] [place] [address]853 CO2 [Moles/Vol] 34 mmol/L High 21-31 [facility] Comment on above: Performed By: #### Lilia CHARLTON C7ED #### [facility] (DEFAULT) [address] [place] [address] Creatinine [Mass/Vol] 0.91 mg/dL Normal 0.50-1.20 [facility] Comment on above: Performed By: #### Lilia CHARLTON C7ED #### Joanne [facility] (DEFAULT) [address] [place] [address] GFR/1.73 sq M.predicted among non-blacks MDRD (S/P/Bld) [Vol rate/Area] 71 mL/min/{1.73_m2} Normal >=60 [facility] Comment on above: Result Comment: Repo rted eGFR is based on the CKD-EPI 2020 equation using creatinine, age, and sex. Performed By: #### Lilia CHARLTNO C7ED #### Joanne [facility] (DEFAULT) [address] [place] [address]358 Glucose [Mass/Vol] 113 mg/dL High 70-99 [facility] Comment on above: Performed By: #### Lilia CHARLTON C7ED #### [facility] (DEFAULT) [address] [place] [address]55 Osmolality [Osmolality] 296 mosm/kg Normal 278-305 [facility] Comment on above: Performed By: #### Lilia CHARLTON C7ED #### [facility] (DEFAULT) [address] [place] [address] Potassium [Moles/Vol] 2.9 mmol/L Critically low 3.5-5.0 [facility] Comment on above: Result Comment: Repe ated and verified Performed By: #### Lilia CHARLTON C7ED #### [facility] (DEFAULT) [address] [place] [address] Sodium [Moles/Vol] 142 mmol/L Normal 135-145 [facility] Comment on above: Performed By: #### L ABMURPHYTI1, C7ED #### [facility] (DEFAULT) [address] [place] [address]288 Urea nitrogen [Mass/Vol] 15 mg/dL Normal -25 [facility] Comment on above: Performed By: #### L ABJUNE1, C7ED #### [facility] (DEFAULT) [address] [place] [address]79 Urea nitrogen/Creatinine [Mass ratio] 16 mg/mg Normal [facility] Comment on above: Performed By: #### L CHERI1, C7ED #### [facility] (DEFAULT) [address] [place] [address] CHM 7 - EDOrdered By: Tg Johnson on 01-03-2022 Anion gap [Moles/Vol] 11 mmol/L 7 - 17 mmol/L [facility] Chloride [Moles/Vol] 100 mmol/L 98 - 10 8 mmol/L [facility] CO2 [Moles/Vol] 34 mmol/L High 21 - 31 mmol/L [facility] Creatinine [Mass/Vol] 0.91 mg/dL 0.50 - 1.20 mg/dL [facility] GFR/1.73 sq M.predicted CKD-EPI (S/P/Bld) [Vol rate/Area] 71 - PINF [facility] Comment on above: Reported eGFR is bas ed on the CKD-EPI 2020 equation using creatinine, age, and sex. Glucose [Mass/Vol] 113 mg/dL High 70 - 99 mg/dL [facility] Interpretation and review of laboratory results Abnormal [facility] Osmolality Calc [Osmolality] 296 [facility] Potassium [Moles/Vol] 2.9 mmol/L Critically low 3.5 - 5.0 mmol/L [facility] Comment on above: Repeated and verifie d Sodium [Moles/Vol] 142 mmol/L 135 - 145 mmol/L [facility] Urea nitrogen [Mass/Vol] 15 mg/dL 7 - 25 mg/dL [facility] Urea nitrogen/Creatinine [Mass ratio] 16 mg/mg [facility] D-DIMER,QUANTITATIVEon 01-03 Fibrin D-dimer FEU (PPP) [Mass/Vol] NINF [facility] Comment on above: The D-Dimer assay is intended for use in conjuction with a clinical pretest probability (PTP) assessment model to exclude pulmonary embolism (PE) and as an aid in the diagnosis of Deep Vein Thrombosis (DVT) in outpatients suspected of PE or DVT. For the assay in use at [facility] ([facility]), a cutoff of <0.50 mcg/mL has a Negative Predictive Value of 99.7% for exclusion of DVT in low and moderate PTP patients. Interpretation and review of laboratory results Normal [facility] D-Dimer, High Sensitivity <0.27 Normal <0.50 [facility] Comment on above: Result Comment: The D-Dimer assay is intended for use in conjuction with a clinical pretest probability (PTP) assessment model to exclude pulmonary embolism (PE) and as an aid in the diagnosis of Deep Vein Thrombosis (DVT) in outpatients suspected of PE or DVT. For the assay in use at [facility] ([facility]), a cutoff of <0.50 mcg/mL has a Negative Predictive Value of 99.7% for exclusion of DVT in low and moderate PTP patients. Performed By: #### H SDDI #### [facility] (DEFAULT) [address] [place] [address] HIGH SENSITIVITY TROPONIN I - SINGLE ORDERon 01-03-2022 hs-Troponin I 10 ng/L Normal <34 [facility] Comment on above: Order Comment: If hi story of coronary heart disease. Acute Coronary Syndrome (ACS): Initial Evaluation and Management: [email or web address]/[email or web address]/ebm/Documents/Guidelines/Acute% 20Coronary%20Syndrome.[email or web address] Performed By: #### L ABHSTI1, C7ED #### [facility] (DEFAULT) [address] [place] [address] Interpretation and review of laboratory results Normal [facility] Troponin I.cardiac DL <= 0.01 ng/mL [Mass/Vol] 10 ng/L NINF - 34 ng/L [facility] MINT GREEN TOP TUBEon 2021 [facility] XR CHEST PA AND LATERALon XR CHEST PA AND LATERAL EXAM: XR CHEST PA AND LATERAL, 01/03/2022 13:52 PM COMPARISON: No prior studies available for comparison. CLINICAL INDICATIONS: patient with chest pain RELEVANT CLINICAL HISTORY: FINDINGS: (Adequate technique) Implanted Devices: None Lungs: Clear, without mass, interstitial disease, or consolidation. Pleural Spaces: No pleural effusion. No pneumothorax. Mediastinum and Amparo: Normal Cardiac silhouette and great vessels: Normal heart size. Unremarkable aorta. Chest Wall: Normal IMPRESSION: No acute cardiopulmonary disease Normal [facility] XR Chest PA and Lateralon IMPRESSION: No acute cardiopulmonary disease OLOGY EXAM: XR CHEST PA AN D LATERAL, 01/03/2022 13:52 PM COMPARISON: No prior studies available for comparison. CLINICAL INDICATIONS: patient with chest pain RELEVANT CLINICAL HISTORY: FINDINGS: (Adequate technique) Implanted Devices: None Lungs: Clear, without mass, interstitial disease, or consolidation. Pleural Spaces: No pleural effusion. No pneumothorax. Mediastinum and Amparo: Normal Cardiac silhouette and great vessels: Normal heart size. Unremarkable aorta. Chest Wall: Normal RADIOLOGY Palmira Bautista M D - 01/03/2022 EXAM: XR CHEST PA AND LATERAL, 01/03/2022 13:52 PM COMPARISON: No prior studies available for comparison. CLINICAL INDICATIONS: patient with chest pain RELEVANT CLINICAL HISTORY: FINDINGS: (Adequate technique) Implanted Devices: None Lungs: Clear, without mass, interstitial disease, or consolidation. Pleural Spaces: No pleural effusion. No pneumothorax. Mediastinum and Amparo: Normal Cardiac silhouette and great vessels: Normal heart size. Unremarkable aorta. Chest Wall: Normal IMPRESSION IMPRESSION: No acute cardiopulmonary disease [facility] Radiology Study observation (narrative) [facility] XR Chest PA and LateralOrder ed By: Palmira Bautista on 01-03-2022 [facility] Work Phone: SCREENING MAMMOGRAM W/CALIXTO, BILATERAL*on 05-08-2021 SCREENING MAMMOGRAM W/CALIXTO, BILATERAL* COMPARISON: May 05, 2019, May 25, 2017 TECHNIQUE: 2D and 3D Tomosynthesis of the right and left breasts was performed. FINDINGS: Breast composition demonstrates scattered fibroglandular densities. Overall appearance is stable. No suspicious microcalcifications, asymmetry, architectural distortion, or associated features are present. IMPRESSION: BIRADS 1: Negative mammogram Board Certified Radiologist. Accredited by the ACR and FDA. MAMMOGRAPHY IS VERY IMPORTANT TO YOUR HEALTH. THE CURRENT [employer] [employer] GUIDELINES RECOMMENDS ANNUAL MAMMOGRAPHY BEGINNING AT AGE 40 THIS FACILITY USES A REMINDER SYSTEM TO ENSURE ALL PATIENTS RECEIVE REMINDER NOTIFICATIONS AT THE APPROPRIATE TIME BASED ON THE RECOMMENDATIONS OF THIS EXAM. Report reported and signed by Darrius Butler on 05/09/2021 0917 Normal [facility] Basic Metabolic Panelon 04-22 Anion gap [Moles/Vol] 17 mmol/L Normal 12-20 [facility] Comment on above: Result Comment: Effe ctive 02/27/2019 reference range changed. Performed By: #### B MP #### [facility] [address] [place], [place] [id number] Calcium [Mass/Vol] 9.1 mg/dL Normal 8.6-10.[address] [facility] Comment on above: Performed By: #### B MP #### [facility] [address] [place], [place] [id number] Chloride [Moles/Vol] 104 mmol/L Normal 98-107 [facility] Comment on above: Performed By: #### B MP #### [facility] [address] [place], [place] [id number] CO2 [Moles/Vol] 25 mmol/L Normal 20-31 [facility] Comment on above: Performed By: #### B MP #### [facility] [address] [place], [place] [id number] Creatinine [Mass/Vol] 0.5 mg/dL Low 0.6-1.4 [facility] Comment on above: Performed By: #### B MP #### [facility] [address] [place] [place], [place] [id number] eGFRAA 142 mL/min/1.73m2 Normal >60 [facility] Specialist Comment on above: Performed By: #### B MP #### [facility] [address] [place] [place], [place] [id number] eGFRNAA 117 mL/min/1.73m2 Normal >60 [facility] Specialist Comment on above: Performed By: #### B MP #### [facility] [address] [place], [place] [id number] Glucose [Mass/Vol] 105 mg/dL High 65-99 [facility] Specialist Comment on above: Result Comment: For FASTING Glucose --- ADA reference ranges: Normal 65-99 mg/dl Prediabetes 100-125 Diabetes >/= 126 Performed By: #### B MP #### [facility] [address] [place], [place] [id number] Potassium [Moles/Vol] 3.5 mmol/L Normal 3.5-5.5 [facility] Specialist Comment on above: Performed By: #### B MP #### [facility] [address] [place], [place] [id number] Sodium [Moles/Vol] 142 mmol/L Normal 135-146 [facility] Specialist Comment on above: Performed By: #### B MP #### [facility] [address] [place] [place], [place] [id number] Urea nitrogen [Mass/Vol] 14 mg/dL Normal 7-25 [facility] Specialist Comment on above: Performed By: #### B MP #### [facility] [address] [place], [place] [id number] Complete Blood Count with Au to Diffon 05-06-2021 Basophils (Bld) [#/Vol] 0.04 10*3/uL Normal 0.00-0.20 [facility] Specialist Comment on above: Performed By: #### T SH, CBCAD, LIPD #### [facility] [address] [place], [place] [id number] Basophils/100 WBC (Bld) 0.6 % Normal [facility] Specialist Comment on above: Performed By: #### T SH, CBCAD, LIPD #### [facility] [address] [place] [place], [place] [id number] Eosinophils (Bld) [#/Vol] 0.22 10*3/uL Normal 0.02-0.50 [facility] Specialist Comment on above: Performed By: #### T SH, CBCAD, LIPD #### [facility] [address] [place], [place] [id number] Eosinophils/100 WBC (Bld) 3.2 % Normal [facility] Specialist Comment on above: Performed By: #### T SH, CBCAD, LIPD #### [facility] [address] [place] [place], [place] [id number] Erythrocyte distribution width (RBC) [Ratio] 11.5 % Normal 11.0-15.0 [facility] [employer] [facility]orer Comment on above: Performed By: #### T SH, CBCAD, LIPD #### [facility] [address] [place], [place] [id number] Hematocrit (Bld) [Volume fraction] 41.6 % Normal 35.0-47.0 [facility] [employer] [facility] Comment on above: Performed By: #### T SH, CBCAD, LIPD #### [facility] [address] [place], [place] [id number] Hemoglobin (Bld) [Mass/Vol] 13.8 g/dL Normal 11.6-15.5 [facility] [employer] [facility] Comment on above: Performed By: #### T SH, CBCAD, LIPD #### [facility] [address] [place] [place], [place] [id number] Lymphocytes (Bld) [#/Vol] 1.9 10*3/uL Normal 0.9-3.9 [facility] Specialist Comment on above: Performed By: #### T SH, CBCAD, LIPD #### [facility] [address] [place], [place] [id number] Lymphocytes/100 WBC (Bld) 27.1 % Normal [facility] Specialist Comment on above: Performed By: #### T VISHAL, CBCAD, LIPD #### [facility] [address] [place], [place] [id number] MCH (RBC) [Entitic mass] 29.9 pg Normal 27.0-33.0 [facility] Specialist Comment on above: Performed By: #### T VISHAL, CBCAD, LIPD #### [facility] [address] [place], [place] [id number] MCHC (RBC) [Mass/Vol] 33.2 g/dL Normal 32.0-36.0 [facility] Specialist Comment on above: Performed By: #### T VISHAL, CBCAD, LIPD #### [facility] [address] [place], [place] [id number] MCV (RBC) [Entitic vol] 90 fL Normal 80-100 [facility] Specialist Comment on above: Performed By: #### T VISHAL, CBCAD, LIPD #### [facility] [address] [place] [place], [place] [id number] Monocytes (Bld) [#/Vol] 0.7 10*3/uL Normal 0.2-0.9 [facility] Specialist Comment on above: Performed By: #### T VISHAL, CBCAD, LIPD #### [facility] [address] [place], [place] [id number] Monocytes/100 WBC (Bld) 10.5 % Normal [facility] Specialist Comment on above: Performed By: #### T VISHAL, CBCAD, LIPD #### [facility] [address] [place], [place] [id number] Neutrophils (Bld) [#/Vol] 4.1 10*3/uL Normal 1.5-7.8 [facility] Specialist Comment on above: Performed By: #### T VISHAL, CBCAD, LIPD #### [facility] [address] [place] [place], [place] [id number] Neutrophils/100 WBC (Bld) 58.3 % Normal [facility] Specialist Comment on above: Performed By: #### T VISHAL, CBCAD, LIPD #### [facility] [address] [place], [place] [id number] Platelet mean volume (Bld) [Entitic vol] 9.60 fL Normal 7.50-12.50 [facility] Comment on above: Performed By: #### T VISHAL, CBCAD, LIPD #### [facility] [address] [place], [place] [id number] Platelets (Bld) [#/Vol] 325 10*3/uL Normal 140-400 [facility] Specialist Comment on above: Performed By: #### T VISHAL, CBCAD, LIPD #### [facility] [address] [place], [place] [id number] RBC (Bld) [#/Vol] 4.62 10*6/uL Normal 3.90-5.20 [facility] Comment on above: Performed By: #### T VISHAL, CBCAD, LIPD #### [facility] [address] [place], [place] [id number] RDW-SD 37.7 fL Normal 37.0-50.0 [facility] Specialist Comment on above: Performed By: #### T VISHAL, CBCAD, LIPD #### [facility] [address] [place], [place] [id number] WBC (Bld) [#/Vol] 7.0 10*3/uL Normal 3.8-11.0 [facility] Comment on above: Performed By: #### T VISHAL, CBCAD, LIPD #### [facility] [address] [place], [place] [id number] Lipid Panelon 05-06-2021 Cholesterol [Mass/Vol] 170 mg/dL Normal 125-200 [facility] Specialist Comment on above: Result Comment: Low risk < 200mg/dL Borderline risk 201-239 mg/dl High risk > or equal to 240 Performed By: #### T SH, CBCAD, LIPD #### [facility] [address] [place], [place] [id number] Cholesterol in HDL [Mass/Vol] 44 mg/dL Normal >40 [facility] Specialist Comment on above: Result Comment: High Cardiovascular Risk HDL <40 mg/dL Low Cardiovascular Risk HDL > or equal to 60 mg/dl Performed By: #### T VISHAL, CBCAD, LIPD #### [facility] [address] [place], [place] [id number] Cholesterol in LDL [Mass/Vol] 96 mg/dL Normal [facility] Comment on above: Result Comment: LDL ATP III CLASSIFICATION LDL less than 100 mg/dl Optimal LDL 100-129 mg/dl Near or above optimal LDL 130-159 Borderline high LDL 160-189 High LDL greater than 189 mg/dl Very High Performed By: #### T VISHAL, CBCAD, LIPD #### [facility] [address] [place], [place] [id number] Cholesterol in VLDL [Mass/Vol] 30 mg/dL Normal [facility] Comment on above: Performed By: #### T VISHAL, CBCAD, LIPD #### [facility] [address] [place], [place] [id number] Cholesterol.total/Ch olesterol in HDL [Mass ratio] 4 {ratio} Normal [facility] Comment on above: Performed By: #### T VISHAL, CBCAD, LIPD #### [facility] [address] [place], [place] [id number] Triglyceride [Mass/Vol] 150 mg/dL Normal 30-150 [facility] Specialist Comment on above: Result Comment: TRIG ATPIII CLASSIFICATIONS TRIG less than 150 mg/dl Normal TRIG 150-199 mg/dl Borderline High TRIG 200-500 mg/dl High TRIG greather than 500 mg/dl Very High Performed By: #### T VISHAL, CBCAD, LIPD #### [facility] [address] [place], [place] [id number] TSHon 05-06-2021 TSH 1.680 uIU/mL Normal 0.400-4.500 [facility] Specialist Comment on above: Performed By: #### T VISHAL, CBCAD, LIPD #### [facility] [address] [place], [place] [id number] Comprehensive Metabolic Pane gomez 04-07-2021 Albumin [Mass/Vol] 4.6 g/dL Normal 3.6-5.1 [facility] Comment on above: Performed By: #### C MARV, MG #### [facility] [address] [place], [place] [id number] Albumin/Globulin [Mass ratio] 2.3 {ratio} Normal 1.0-2.5 [facility] Specialist Comment on above: Performed By: #### C MP, MG #### [facility] [address] [place], [place] [id number] ALP [Catalytic activity/Vol] 77 U/L Normal 35-119 [facility] Comment on above: Performed By: #### C MP, MG #### [facility] [address] [place], [place] [id number] ALT [Catalytic activity/Vol] 16 U/L Normal 6-33 [facility] Comment on above: Result Comment: 01/22 Female reference range changed. Performed By: #### C MP, MG #### [facility] [address] [place], [place] [id number] Anion gap [Moles/Vol] 19 mmol/L Normal 12-20 [facility] Comment on above: Result Comment: Effe ctive 02/27/2019 reference range changed. Performed By: #### C MP, MG #### [facility] [address] [place], [place] [id number] AST [Catalytic activity/Vol] 17 U/L Normal 9-34 [facility] Comment on above: Performed By: #### C MP, MG #### [facility] [address] [place], [place] [id number] Bilirubin [Mass/Vol] 0.61 mg/dL Normal 0.30-1.20 [facility] Comment on above: Performed By: #### C MP, MG #### [facility] [address] [facility] [place] [id number] BUN/CREA 22 Ratio Normal 6-22 [facility] Comment on above: Performed By: #### C MP, MG #### [facility] [address] [place] [id number] Calcium [Mass/Vol] 9.5 mg/dL Normal 8.6-10.2 [facility] Comment on above: Performed By: #### C MP, MG #### [facility] [address] [place] [id number] Chloride [Moles/Vol] 103 mmol/L Normal 98-107 [facility] Comment on above: Performed By: #### C MP, MG #### [facility] [address] [place], [place] [id number] CO2 [Moles/Vol] 26 mmol/L Normal 20-31 [facility] Specialist Comment on above: Performed By: #### C MP, MG #### [facility] [address] [place], [place] [id number] Creatinine [Mass/Vol] 0.5 mg/dL Low 0.6-1.4 [facility] Specialist Comment on above: Performed By: #### C MP, MG #### [facility] [address] [place], [place] [id number] eGFRAA 145 mL/min/1.73m2 Normal >60 [facility] Specialist Comment on above: Performed By: #### C MP, MG #### [facility] [address] [place], [place] [id number] eGFRNAA 119 mL/min/1.73m2 Normal >60 [facility] Specialist Comment on above: Performed By: #### C MP, MG #### [facility] [address] [place], [place] [id number] Globulin (S) [Mass/Vol] 2.0 g/dL Normal 1.9-3.7 [facility] [employer] [facility] Comment on above: Performed By: #### C MP, MG #### [facility] [address] [place], [place] [id number] Glucose [Mass/Vol] 111 mg/dL High 65-99 [facility] [employer] [facility] Comment on above: Result Comment: For FASTING Glucose --- ADA reference ranges: Normal 65-99 mg/dl Prediabetes 100-125 Diabetes >/= 126 Performed By: #### C MP, MG #### [facility] [address] [place], [place] [id number] Potassium [Moles/Vol] 3.8 mmol/L Normal 3.5-5.5 [facility] [employer] [facility] Comment on above: Performed By: #### C MP, MG #### [facility] [address] [place], [place] [id number] Protein [Mass/Vol] 6.6 g/dL Normal 6.1-8.1 [facility] [employer] Comment on above: Performed By: #### C MP, MG #### [facility] [address] [place], [place] [id number] Sodium [Moles/Vol] 143 mmol/L Normal 135-146 Sofia sandra [place] [employer] [facility] Comment on above: Performed By: #### C MP, MG #### [facility] [address] [place], [place] [id number] Urea nitrogen [Mass/Vol] 12 mg/dL Normal 7-25 [facility] [employer] [facility] Comment on above: Performed By: #### C MP, MG #### [facility] [address] [place], [place] [id number] Magnesiumon 04-07-2021 Magnesium [Mass/Vol] 2.1 mg/dL Normal 1.5-2.3 Venancio leigh [place] [employer] [facility] Comment on above: Performed By: #### C MP, MG #### [facility] [address] [place], [place] [id number] Vital Signs Date Time Vital Sign Value Performing Clinician Faci lity 01-03-2022 14:15-0500 Diastolic blood pressure 58 mm[Hg] Washington Azar MD Work Phone: [facility] 01-03-2022 14:15-0500 Heart rate 74 /min Washington Azar MD Work Phone: [facility] 01-03-2022 14:15-0500 Respiratory rate 18 /min Washington Azar MD Work Phone: [facility] 01-03-2022 14:15-0500 SaO2% (BldA) [Mass fraction] 94 % Washington Azar MD Work Phone: [facility] 01-03-2022 14:15-0500 Systolic blood pressure 115 mm[Hg] Washington Azar MD Work Phone: [facility] 01-03-2022 12:23-0500 Body temperature 98.01 [degF] Washington Azar MD Work Phone: [facility] Encounters Encounter Date Encounter Type Care Provider Facility Start: 07-23-2023 End: 07-23-2023 ambulatory ANA FOSTER Not Available Start: 07-23-2023 End: 07-23-2023 ambulatory PASTOR WILKINS [facility] Start: 07-18-2023 End: 07-19-2023 ambulatory ANA FOSTER [facility] Start: 06-28-2023 End: 06-28-2023 ambulatory ERICA FOFANA Not Available Start: 06-28-2023 End: 06-28-2023 ambulatory ERICA FOFANA Not Available Start: 05-20-2023 End: 05-20-2023 ambulatory ANA FOSTER Not Available Start: 05-11-2023 End: 05-11-2023 ambulatory ERICA FOFANA Not Available Start: 05-04-2023 End: 05-04-2023 ambulatory ERICA FOFANA Not Available Start: 02-11-2023 End: 02-11-2023 ambulatory ANA FOSTER Not Available Start: 07-08-2022 ambulatory JIGNA BOYKIN Faci lity:[facility] Start: 06-03-2022 End: 06-04-[address] KWESI MUNOZ Facility:[facility] Start: 05-12-2022 End: 05-13-[address] KWESI MUNOZ Facility:[facility] Start: 04-21-2022 End: 04-22-[address] SIVA HUNTER Facility:[facility] Start: 01-03-2022 End: 01-03-2022 Emergency department patient visit KEYUR NAYAK Facility:[facility] Start: 01-03-2022 End: 01-03-2022 Emergency department patient visit Washington Azar MD Work Phone: [facility] Start: 09-24-2021 End: 09-25-[address] KWESI MUNOZ Facility:[facility] Procedures Date Procedure Procedure Detail Performing Clinician Start: 07-23-2023 Follow-up visit Follow-up PASTOR Sethi CLAUDETTE Start: 01-03-2022 Radiologic exam ches t 2 views Washington Azar MD Work Phone: Start: 01-03-2022 CBC AND ELECTRONIC DIFF Washington Azar MD Work Phone: Start: 01-03-2022 Complete blood count with white cell differential, automated Washington Azar MD Work Phone: Start: 01-03-2022 MINT GREEN TOP TUBE Clinton Azar MD Work Phone: Start: 01-03-2022 Natriuretic peptide Clinton Azar MD Work Phone: Plan of Treatment Date Care Activity Detail Author Start: 10-23-2021 Influenza vaccination INFLUENZA VACC INE (#1) [facility] Start: 2009 Zoster vaccine hzv l saad for subcutaneous use ZOSTER (SHINGLES) VACCINE (1 of 2) [facility] Start: 2004 Screening for malign ant neoplasm of colon COLORECTAL CANCER SCREENING DISCUSSION [facility] Start: 1999 Lipid panel LIPID SCREENING [facility] Start: 1999 Screening for malign ant neoplasm of breast MAMMOGRAM SCREENING DISCUSSION [facility] Start: 1980 Screening for malign ant neoplasm of cervix CERVICAL CANCER SCREENING DISCUSSION [facility] Start: 1978 Third diphtheria, te tanus and acellular pertussis (DTaP) vaccination TDAP (ADULT) [facility] Start: 1977 Tetanus vaccination TETANUS [facility] Start: 1974 HIV screening HIV SCREENING DISCUSSION [facility] Start: 1959 COVID-19 VACCINE (#1) COVID-19 VACCI NE (#1) [facility] Start: 1959 Hepatitis C screening HEPATITI S C VIRUS SCREENING [facility] GOLD TOP TUBE GOLD TOP TUBE La b STAT 01/03/2022 12:37 PM EST [facility] LAVENDER TOP TUBE LAVENDER TOP T UBE Lab STAT 01/03/2022 12:37 PM EST [facility] LT BLUE TOP TUBE LT BLUE TOP TUB E Lab STAT 01/03/2022 12:37 PM EST [facility] RAINBOW DRAW RAINBOW DRAW Lab STAT 01/03/2022 12:37 PM EST [facility] End: 01-03-2022 Standard ECG [facility] Comment on above: One Time for 1 Occur rences starting 01/03/2022 until 01/03/2022 Payers Date Payer Category Payer Unknown [employer]ZE ARCINIEGA HM O PPO POS [id number] 2014-Present [address] [place] [address] [id number] 1959 Unknown [id number] [id number] 1959 Unknown [id number] [id number] 1959 Unknown [id number] 2.16.840.1.059728.3.579.2.593 1959 Unknown [id number] 2.16.840.1.560169.3.579.2.593 1959 Unknown [id number] 2.16.840.1.515796.3.579.2.593 1959 Unknown [id number] 2.16.840.1.423642.3.579.2.593 1959 Unknown [id number] 2.16.840.1.583243.3.579.2.1286 1959 Unknown [id number] 2.16.840.1.422355.3.579.2.1286 1959 Unknown [id number] 2.16.840.1.663338.3.579.2.1286 1959 Unknown [id number] 2.16.840.1.134753.3.579.2.1259 1959 Unknown [id number] 2.16.840.1.769580.3.579.2.1259 1959 Unknown [id number] 2.16.840.1.378547.3.579.2.1259 1959 Unknown [id number] 2.16.840.1.886417.3.579.2.1259 1959 Unknown [id number] 2.16.840.1.635602.3.579.2.1259 1959 Unknown [id number] 2.16.840.1.713127.3.579.2.1259 1959 Unknown [id number] 2.16.840.1.634575.3.579.2.1259 1959 Unknown [id number] Social History Date Type Detail Facility Tobacco smoking stat [facility] Start: 1960 Sex Assigned At Not on file [facility] Clinical Notes 09-25-2021 to 06-03-2022 Monica Daniel [facility] - 01/03/2022 4:04 PM FELICITAS Salazar - 01/03/2022 4:04 PM Ra Azar MD - 01/03/2022 2:33 PM Ann Rahman MD - 01/03/2022 2:05 PM EST Note Date & Type Note Facility 06-03-2022 Note PROCEDURE: XR FOOT R T MIN 3 VIEWS HISTORY: Pain in right foot COMPARISON: XR foot right 05/12/2022 FINDINGS: BONES:Persistent thin lucency along lateral margin of the base of fifth metatarsal with adjacent sclerosis. Normal alignment. SOFT TISSUES:No visible soft tissue swelling. EFFUSION:None visible. OTHER: Negative. IMPRESSION: 1. Incomplete osseous healing of base of fifth metatarsal fracture; not appreciably changed. Electronically authenticated by: KWESI MUNOZ Date: 2022-06-03 16:12 [facility] 05-12-2022 Note PROCEDURE: XR FOOT R T MIN 3 VIEWS HISTORY: Pain in right foot COMPARISON: XR foot right 04/13/2022, XR foot right 09/24/2021 FINDINGS: BONES:Thin band of sclerosis across base of fifth metatarsal with slight lucency along lateral cortical margin suggesting mixture of bone healing and bone resorption; likely healing fracture. SOFT TISSUES:No visible soft tissue swelling. EFFUSION:None visible. OTHER: Negative. IMPRESSION: 1. Incomplete/early healing, nondisplaced fracture/stress fracture involving base of fifth metatarsal. Electronically authenticated by: KWESI MUNOZ Date: 2022-05-12 12:34 [facility] 04-21-2022 Note PROCEDURE: XR FOOT R T MIN 3 VIEWS COMPARISON: 09/24/2021 HISTORY: Pain in right foot FINDINGS: BONES:No acute fracture or dislocation. Moderate plantar enthesopathic spurring at the Achilles insertion SOFT TISSUES:Negative. No visible soft tissue swelling. EFFUSION:None visible. OTHER: Negative. IMPRESSION: No acute abnormality Electronically authenticated by: SIVA HUNTER Date: 2022-04-21 17:22 [facility] 01-03-2022 Emergency department Note Reason for Consult: Transportation Consulted By: Nurse ANA contacted by Nurse (Aaliyah) requesting assistance with transportation of patient and her from [facility] to parking lot where their vehicle was left prior to the game ([place] Patient has no other means to get to their vehicle. ANA requested a Lyft for patient and her as patient was ready for discharge. YAO Smith LSW Medical Social Work [facility] 01-03-2022 Emergency department Note Reason for Consult: Transportation Consulted By: Nurse ANA contacted by Nurse (Aaliyah) requesting assistance with transportation of patient and her from [facility] to parking lot where their vehicle was left prior to the game ([place] [address]). Patient has no other means to get to their vehicle. ANA requested a Lyft for patient and her as patient was ready for discharge. YAO Smith LSW Medical Social Work ED Staffing Note Chief complaint: Chief Complaint Patient presents with ALLANI Claudia Lazcano is a 61 y.o. year old female who presents with sob. Started while walking PMH: HTN, asthma Social History Socioeconomic History Marital status: Not on file Spouse name: Not on file Number of children: Not on file Years of education: Not on file Highest education level: Not on file Occupational History Not on file Tobacco Use Smoking status: Not on file Smokeless tobacco: Not on file Substance and Sexual Activity Alcohol use: Not on file Drug use: Not on file Sexual activity: Not on file Other Topics Concern Not on file Social History Narrative Not on file Social Determinants of Health Financial Resource Strain: Not on file Food Insecurity: Not on file Transportation Needs: Not on file Physical Activity: Not on file Stress: Not on file Social Connections: Not on file Intimate Partner Violence: Not on file Housing Stability: Not on file No family history on file. Review of systems including constitutional, skin, HEENT, eyes, CV, respiratory, GI, , MSK, endocrine, neurologic, psychiatric reviewed and negative except as noted above. DDx: Acs, ptx, cap, pe, uri Impression: SOB Plan: Labs, EKG ED Course: Pt was stable on arrival here. NAD. Sx resolved. EKG not ischemic. Labs including d-dimer pending Prior medical records were reviewed. All pertinent labs and imaging results were reviewed and interpreted by me. The patient was updated regarding findings, and was re-assessed during ED stay. This patient's history and physical exam were performed by the resident. On 01/03/2022 I saw and examined the patient. I discussed the history and examination with the resident and agree with the plan of care. In addition, I have fully participated in the care of this patient. I have reviewed all pertinent clinical information, including history, physical exam and medical decision making with the resident. Washington Azar MD 01/03/22 1442 dEPARTMENT of Emergency Medicine CHIEF COMPLAINT URI HPI Claudia Lazcano is a 61 y.o. female with past medical history of HTN, asthma who presents to the ED after episode of SOB and neck pain. Patient states she was walking to the [employer] [place] and had walked about a mile. States she had to stop multiple times due to SOB. States this has been normal for her the past few years and she has upcoming appointment with backwinder. States she walked up a flight of stairs and sat in her seat and then developed SOB, dizziness, and neck pain. States the pain felt tight and was midline. States she has never had pain like that before. Denied chest pain. States all her symptoms have resolved and she feels fine . Has not taken her medications today. Usually takes inhaler for asthma. Has not drank fluids or eaten today. Denies alcohol. States she has had cough for about a week and took last of her z-pack yesterday. Denies recent fevers, chills, or vomiting. REVIEW OF SYSTEMS Review of Systems Constitutional: Negative for chills, diaphoresis and fever. HENT: Negative for congestion, rhinorrhea, sore throat and trouble swallowing. Eyes: Negative for photophobia and visual disturbance. Respiratory: Positive for shortness of breath. Negative for cough. Cardiovascular: Negative for chest pain, palpitations and leg swelling. Gastrointestinal: Negative for abdominal pain, constipation, diarrhea, nausea and vomiting. Genitourinary: Negative for difficulty urinating, dysuria and hematuria. Musculoskeletal: Positive for neck pain. Negative for back pain and gait problem. Neurological: Positive for dizziness. Negative for syncope, weakness, light-headedness, numbness and headaches. Hematological: Negative for adenopathy. Does not bruise/bleed easily. Psychiatric/Behavioral: Negative for agitation and confusion. PAST MEDICAL HISTORY No past medical history on file. SURGICAL HISTORY No past surgical history on file. CURRENT MEDICATIONS No current facility-administered medications for this encounter. No current outpatient medications on file. ALLERGIES Allergies Allergen Reactions Penicillins Hives FAMILY HISTORY No family history on file. SOCIAL HISTORY Social History Socioeconomic History Marital status: Not on file Spouse name: Not on file Number of children: Not on file Years of education: Not on file Highest education level: Not on file Occupational History Not on file Tobacco Use Smoking status: Not on file Smokeless tobacco: Not on file Substance and Sexual Activity Alcohol use: Not on file Drug use: Not on file Sexual activity: Not on file Other Topics Concern Not on file Social History Narrative Not on file Social Determinants of Health Financial Resource Strain: Not on file Food Insecurity: Not on file Transportation Needs: Not on file Physical Activity: Not on file Stress: Not on file Social Connections: Not on file Intimate Partner Violence: Not on file Housing Stability: Not on file PHYSICAL EXAM BP 123/60 Pulse 68 Temp 98 F (36.7 C) (Oral) Resp 18 SpO2 95% Physical Exam Constitutional: General: She is not in acute distress. Appearance: Normal appearance. She is normal weight. She is not ill-appearing or diaphoretic. HENT: Head: Normocephalic and atraumatic. Right Ear: External ear normal. Left Ear: External ear normal. Nose: Nose normal. No congestion or rhinorrhea. Mouth/Throat: Mouth: Mucous membranes are moist. Pharynx: Oropharynx is clear. No oropharyngeal exudate or posterior oropharyngeal erythema. Eyes: General: No scleral icterus. Right eye: No discharge. Left eye: No discharge. Extraocular Movements: Extraocular movements intact. Pupils: Pupils are equal, round, and reactive to light. Cardiovascular: Rate and Rhythm: Normal rate and regular rhythm. Pulses: Normal pulses. Heart sounds: Normal heart sounds. Pulmonary: Effort: Pulmonary effort is normal. Breath sounds: Normal breath sounds. Comments: Mild cough noted on exam Abdominal: General: Abdomen is flat. Bowel sounds are normal. There is no distension. Palpations: Abdomen is soft. There is no mass. Tenderness: There is no abdominal tenderness. Musculoskeletal: General: No swelling or tenderness. Normal range of motion. Cervical back: Normal range of motion and neck supple. Right lower leg: No edema. Left lower leg: No edema. Skin: General: Skin is warm and dry. Capillary Refill: Capillary refill takes less than 2 seconds. Findings: No bruising, erythema, lesion or rash. Neurological: General: No focal deficit present. Mental Status: She is alert and oriented to person, place, and time. Mental status is at baseline. Cranial Nerves: No cranial nerve deficit. Sensory: No sensory deficit. Motor: No weakness. Coordination: Coordination normal. Gait: Gait normal. Psychiatric: Mood and Affect: Mood normal. Behavior: Behavior normal. ED COURSE & MEDICAL DECISION MAKING Pertinent Labs & Imaging studies if performed reviewed. (See chart for details) Medication list reviewed. Assessment: Claudia Lazcano is a 61 y.o. female with past medical history of HTN, asthma who presents to the ED after episode of SOB and neck pain. Differential Diagnosis includes but is not limited to: ACS, PE, pneumonia,URI, COVID, flu, heart failure exacerbation, dehydration, asthma exacerbation Medical Decision Making: Patient's vitals unremarkable upon arrival to ED. Patient sitting in bed, in no acute distress. Labwork reassuring, including negative hs-troponin and no evidence of acute ischemia or arrhythmia on EKG. K low and replaced. Chest x-ray with no abnormal findings. D-dimer negative, lowering concern for PE. Suspect patient's symptoms were contributed by dehydration, recent URI, and exercise. Instructed patient to drink plenty of fluids and rest. Patient has follow up appointment with backwinder next week. Appropriate return precautions given and all questions answered. Impression: SOB, neck pain Disposition: Discharge Opal Rahman MD Emergency Medicine, PGY-2 Opal Rahman MD Resident 01/03/22 3400 Pt presents to the ED with SOB and neck pain. Pt was recently diagnosed with a URI. Given a z pack that she fimished yesterday. [place] [employer] [place] when she started having SOB and neck pain. Neck pain has since stopped. 95% on RA. documented in this encounter [facility] 01-03-2022 Hospital Discharg e instructions Opal Rahman MD - 01/03/2022 3:45 PM EST Ms. Lazcano, You were seen in the ED today for shortness of breath and neck pain. Your lab work was all reassuring. We have low concern for life-threatening illness at this time. Please remember to drink plenty of fluids. Please follow up with your PCP and your upcoming pulmonology appointment. If your symptoms worsen, or you experience other concerning symptoms, such as confusion, passing out, or severe chest pain, please call your doctor immediately or return to the ED for re-evaluation. documented in this encounter [facility] 01-03-2022 Physician Emergency department Note ED Staffing Note Chief complaint: Chief Complaint Patient presents with URI Claudia Lazcano is a 61 y.o. year old female who presents with sob. Started while walking PMH: HTN, asthma Social History Socioeconomic History Marital status: Not on file Spouse name: Not on file Number of children: Not on file Years of education: Not on file Highest education level: Not on file Occupational History Not on file Tobacco Use Smoking status: Not on file Smokeless tobacco: Not on file Substance and Sexual Activity Alcohol use: Not on file Drug use: Not on file Sexual activity: Not on file Other Topics Concern Not on file Social History Narrative Not on file Social Determinants of Health Financial Resource Strain: Not on file Food Insecurity: Not on file Transportation Needs: Not on file Physical Activity: Not on file Stress: Not on file Social Connections: Not on file Intimate Partner Violence: Not on file Housing Stability: Not on file No family history on file. Review of systems including constitutional, skin, HEENT, eyes, CV, respiratory, GI, , MSK, endocrine, neurologic, psychiatric reviewed and negative except as noted above. DDx: Acs, ptx, cap, pe, uri Impression: SOB Plan: Labs, EKG ED Course: Pt was stable on arrival here. NAD. Sx resolved. EKG not ischemic. Labs including d-dimer pending Prior medical records were reviewed. All pertinent labs and imaging results were reviewed and interpreted by me. The patient was updated regarding findings, and was re-assessed during ED stay. This patient's history and physical exam were performed by the resident. On 01/03/2022 I saw and examined the patient. I discussed the history and examination with the resident and agree with the plan of care. In addition, I have fully participated in the care of this patient. I have reviewed all pertinent clinical information, including history, physical exam and medical decision making with the resident. Washington Azar MD 01/03/22 1446 [facility] Work Phone: 01-03-2022 Physician Emergency department Note dEPARTMENT of Emergency Medicine CHIEF COMPLAINT URI HPI Claudia Lazcano is a 61 y.o. female with past medical history of HTN, asthma who presents to the ED after episode of SOB and neck pain. Patient states she was walking to the [facility] and had walked about a mile. States she had to stop multiple times due to SOB. States this has been normal for her the past few years and she has upcoming appointment with backwinder. States she walked up a flight of stairs and sat in her seat and then developed SOB, dizziness, and neck pain. States the pain felt tight and was midline. States she has never had pain like that before. Denied chest pain. States all her symptoms have resolved and she feels fine . Has not taken her medications today. Usually takes inhaler for asthma. Has not drank fluids or eaten today. Denies alcohol. States she has had cough for about a week and took last of her z-pack yesterday. Denies recent fevers, chills, or vomiting. REVIEW OF SYSTEMS Review of Systems Constitutional: Negative for chills, diaphoresis and fever. HENT: Negative for congestion, rhinorrhea, sore throat and trouble swallowing. Eyes: Negative for photophobia and visual disturbance. Respiratory: Positive for shortness of breath. Negative for cough. Cardiovascular: Negative for chest pain, palpitations and leg swelling. Gastrointestinal: Negative for abdominal pain, constipation, diarrhea, nausea and vomiting. Genitourinary: Negative for difficulty urinating, dysuria and hematuria. Musculoskeletal: Positive for neck pain. Negative for back pain and gait problem. Neurological: Positive for dizziness. Negative for syncope, weakness, light-headedness, numbness and headaches. Hematological: Negative for adenopathy. Does not bruise/bleed easily. Psychiatric/Behavioral: Negative for agitation and confusion. PAST MEDICAL HISTORY No past medical history on file. SURGICAL HISTORY No past surgical history on file. CURRENT MEDICATIONS No current facility-administered medications for this encounter. No current outpatient medications on file. ALLERGIES Allergies Allergen Reactions Penicillins Hives FAMILY HISTORY No family history on file. SOCIAL HISTORY Social History Socioeconomic History Marital status: Not on file Spouse name: Not on file Number of children: Not on file Years of education: Not on file Highest education level: Not on file Occupational History Not on file Tobacco Use Smoking status: Not on file Smokeless tobacco: Not on file Substance and Sexual Activity Alcohol use: Not on file Drug use: Not on file Sexual activity: Not on file Other Topics Concern Not on file Social History Narrative Not on file Social Determinants of Health Financial Resource Strain: Not on file Food Insecurity: Not on file Transportation Needs: Not on file Physical Activity: Not on file Stress: Not on file Social Connections: Not on file Intimate Partner Violence: Not on file Housing Stability: Not on file PHYSICAL EXAM BP 123/60 Pulse 68 Temp 98 F (36.7 C) (Oral) Resp 18 SpO2 95% Physical Exam Constitutional: General: She is not in acute distress. Appearance: Normal appearance. She is normal weight. She is not ill-appearing or diaphoretic. HENT: Head: Normocephalic and atraumatic. Right Ear: External ear normal. Left Ear: External ear normal. Nose: Nose normal. No congestion or rhinorrhea. Mouth/Throat: Mouth: Mucous membranes are moist. Pharynx: Oropharynx is clear. No oropharyngeal exudate or posterior oropharyngeal erythema. Eyes: General: No scleral icterus. Right eye: No discharge. Left eye: No discharge. Extraocular Movements: Extraocular movements intact. Pupils: Pupils are equal, round, and reactive to light. Cardiovascular: Rate and Rhythm: Normal rate and regular rhythm. Pulses: Normal pulses. Heart sounds: Normal heart sounds. Pulmonary: Effort: Pulmonary effort is normal. Breath sounds: Normal breath sounds. Comments: Mild cough noted on exam Abdominal: General: Abdomen is flat. Bowel sounds are normal. There is no distension. Palpations: Abdomen is soft. There is no mass. Tenderness: There is no abdominal tenderness. Musculoskeletal: General: No swelling or tenderness. Normal range of motion. Cervical back: Normal range of motion and neck supple. Right lower leg: No edema. Left lower leg: No edema. Skin: General: Skin is warm and dry. Capillary Refill: Capillary refill takes less than 2 seconds. Findings: No bruising, erythema, lesion or rash. Neurological: General: No focal deficit present. Mental Status: She is alert and oriented to person, place, and time. Mental status is at baseline. Cranial Nerves: No cranial nerve deficit. Sensory: No sensory deficit. Motor: No weakness. Coordination: Coordination normal. Gait: Gait normal. Psychiatric: Mood and Affect: Mood normal. Behavior: Behavior normal. ED COURSE & MEDICAL DECISION MAKING Pertinent Labs & Imaging studies if performed reviewed. (See chart for details) Medication list reviewed. Assessment: Claudia Lazcano is a 61 y.o. female with past medical history of HTN, asthma who presents to the ED after episode of SOB and neck pain. Differential Diagnosis includes but is not limited to: ACS, PE, pneumonia,URI, COVID, flu, heart failure exacerbation, dehydration, asthma exacerbation Medical Decision Making: Patient's vitals unremarkable upon arrival to ED. Patient sitting in bed, in no acute distress. Labwork reassuring, including negative hs-troponin and no evidence of acute ischemia or arrhythmia on EKG. K low and replaced. Chest x-ray with no abnormal findings. D-dimer negative, lowering concern for PE. Suspect patient's symptoms were contributed by dehydration, recent URI, and exercise. Instructed patient to drink plenty of fluids and rest. Patient has follow up appointment with backwinder next week. Appropriate return precautions given and all questions answered. Impression: SOB, neck pain Disposition: Discharge Opal Rahman MD Emergency Medicine, PGY-2 Opal Rahman MD Resident 01/03/22 7040 [facility] Work Phone: 01-03-2022 Note Acute Coronary Syndr ome (ACS): Initial Evaluation and Management: [email or web address] [facility] 01-03-2022 Emergency department Note Pt presents to the ED with SOB and neck pain. Pt was recently diagnosed with a URI. Given a z pack that she fimished yesterday. [place] [employer] [place] when she started having SOB and neck pain. Neck pain has since stopped. 95% on RA. [facility] 09-25-2021 Note PROCEDURE: XR FOOT R T MIN 3 VIEWS HISTORY: Pain in right foot ; chronic right second toe pain COMPARISON: None. FINDINGS: BONES:No fracture, dislocation, bone lesion. Degenerative enthesophyte at Achilles tendon insertion into calcaneus. No appreciable loss of plantar arch. SOFT TISSUES:No visible soft tissue swelling. EFFUSION:None visible. OTHER: Negative. IMPRESSION: 1. No acute bone abnormality or significant degenerative changes to account for patient's symptoms. Electronically authenticated by: KWESI MUNOZ Date: 2021-09-25 06:50 [facility] Evaluation note Diagnosis Shortness of breath- Primary Neck pain Cervicalgia documented in this encounter [facility] Summary Purpose Family History No Family History Records FoundNo Family History Records FoundNo Family History Records FoundNo Family History Records FoundNo Family History Records FoundNo Family History Records FoundNo Family History Records Found Advance Directives No Advanced Directives Records FoundNo Advanced Directives Records FoundNo Advanced Directives Records FoundNo Advanced Directives Records FoundNo Advanced Directives Records FoundNo Advanced Directives Records FoundNo Advanced Directives Records Found Reason for Referral Specialty Diagnoses / Procedures Referred By [address] Referred To Contact Procedures ECG Washington Azar MD [address] [place] [address] Referral ID Status Reason Start Date Expiration Date V isits Requested Visits Authorized [id number] Pending Review 01/03/2022 01/28/2023 1 1 Additional Source Comments INFORMATION SOURCE (unrecogn ized section and content) DATE CREATED AUTHOR 05/09/2021 [facility] DATE CREATED AUTHOR AUTHOR'S ORGANIZ ATION 02/11/2022 [facility] DATE CREATED AUTHOR AUTHOR'S ORGANIZ ATION 06/22/2022 [facility] DATE CREATED AUTHOR AUTHOR'S ORGANIZ ATION 07/23/2023 [facility] DATE CREATED AUTHOR AUTHOR'S ORGANIZ ATION 07/23/2023 [facility] DATE CREATED AUTHOR AUTHOR'S ORGANIZ ATION 07/24/2023 [facility] DATE CREATED AUTHOR AUTHOR'S ORGANIZ ATION 07/27/2023 [facility] EPIC Reason for Visit (unrecogniz ed section and content) Reason Comments URI Scheduled Active and Recently Administ ered Medications (unrecognized section and content) Medication Order 01/01/2022 01/02/2022 01/03/2022 potassium chloride (K-DUR) tablet ER 20 mEq (COMPLETED) 20 mEq, Oral, ONCE, 1 dose, On 01/03/22 at 1500, Swallow tablets whole; do not crush, chew, or suck on tablet. Tablet may also be broken in half and each half swallowed separately. 1427 (Given - Provid er: Nusrat Chiu RN) potassium chloride (K-DUR) tablet ER 20 mEq (COMPLETED) 20 mEq, Oral, ONCE, 1 dose, On 01/03/22 at 1545, Swallow tablets whole; do not crush, chew, or suck on tablet. Tablet may also be broken in half and each half swallowed separately. 1550 (Given - Provid er: Shelly Rain RN) FOR RECORDS PERTAINING TO PATIENTS WHO ARE OR HAVE BEEN ENROLLED IN A CHEMICAL DEPENDENCY/SUBSTANCEABUSE PROGRAM, SOME INFORMATION MAY BE OMITTED. This clinical summary was aggregated from multiple sources. Caution should be exercised in using it in the provision of clinical care. This summary normalizes information from multiple sources, and as a consequence, information in this document may materially change the coding, format and clinical context of patient data. In addition, data may be omitted in some cases. CLINICAL DECISIONS SHOULD BE BASED ON THE PRIMARY CLINICAL RECORDS. [employer] provides no warranty or guarantee of the accuracy or completeness of information in this document.
[2023-08-02 06:59] LABS: Hematocrit 41.6 % (36.0-48.0); Hemoglobin 13.8 g/dL (12.0-16.0); Mean Corpuscular HGB Conc 33.2 g/dL (29.9-35.2); Mean Corpuscular Hemoglobin 29.9 pg (26.7-34.0); Mean Platelet Volume 9.1 fL (9.5-13.5); Platelet Count 309 10^3/uL (150-450); Red Blood Count 4.62 10^6/uL (4.20-5.40)
[2023-08-02 07:00] LABS: Bilirubin Urine NEGATIVE (NEGATIVE); Blood Urine NEGATIVE (NEGATIVE); Clarity Urine CLEAR (CLEAR); Color Urine YELLOW (YELLOW); Glucose Urine UA NEGATIVE (NEGATIVE); Ketones Urine NEGATIVE (NEGATIVE); Leukocyte Esterase Urine NEGATIVE (NEGATIVE); Nitrite Urine NEGATIVE (NEGATIVE); Protein Urine NEGATIVE (NEG/TRACE); Specific Gravity Urine 1.015 (1.005-1.025); Urobilinogen Urine 0.2 EU/dL (0.2-1.0)
[2023-08-02 07:10] LABS: Anion Gap 12.6; BUN Creatinine Ratio 15.3; Calcium 8.7 mg/dL (8.5-10.1); Carbon Dioxide 27.9 mmol/L (21.0-32.0); Chloride 100 mmol/L (98-107); Estimated GFR (African America >60 (>=60); Estimated GFR (Non-African Ame >60 (>=60); Glucose 125 mg/dL (74-106); Potassium 3.5 mmol/L (3.5-5.1); Sodium 137 mmol/L (136-145)
--- NOTE | 2023-08-02 07:29 | US_ITS ---
[place] [address] Patient Name: SHELLEY PITTMAN MRN: [id number] date: 1960 Sex: F Assigned Patient Location: ER Current Patient Location: ED.MAIN Accession/Order Number: [id number] Exam Date: 08/02/2023 07:30 Report Date: 08/02/2023 08:07 At the request of: SAURABH DYSON Procedure: US venous doppler LE BI EXAM: US venous doppler LE BI HISTORY: Leg pain COMPARISON: None. TECHNIQUE: Grayscale, color and Doppler FINDINGS: Region: Bilateral legs Thrombus: None Flow: Normal Compressibility: Normal Augmentation: Normal US/US venous doppler LE BI IMPRESSION: No deep or superficial vein thrombus identified in the legs Electronically authenticated by: SIVA HUNTER Date: 08/02/2023 08:07
[2023-08-02] MEDS: ACETAMINOPHEN 500 MG TABLET PO (07:32)
[2023-08-02 07:37] LABS: Bacteria Urine NONE SEEN #/HPF (NONE SEEN); Cast Seen? NONE SEEN #/LPF (NONE SEEN); Crystals Seen? None Seen #/HPF (None Seen); Mucus Urine TRACE (NONE SEEN); RBC Urine NONE SEEN #/HPF (0-2); Squamous Epithelial Cell Urine RARE #/LPF (NONE/RARE); WBC Urine NONE SEEN #/HPF (NONE SEEN)
[2023-08-02 07:51] LABS: Eosinophils Absolute Manual 0.14 10^3/uL (0.00-0.70); Lymphocytes Absolute Manual 0.77 10^3/uL (1.20-3.80); Monocytes Absolute Manual 0.35 10^3/uL (0.30-0.80); Segmented Neut Absolute Manual 5.74 10^3/uL (1.4-6.5)
== END 2023-08-02 08:15 | disposition home or self-care (01) ==
PROVIDERS: Emergency Provider Emergency Medicine; PCP Family Medicine
DX: R07.9 Chest pain, unspecified (principal); R05.9 Cough, unspecified; M79.604 Pain in right leg; R10.32 Left lower quadrant pain; M94.0 Chondrocostal junction syndrome [Tietze]
CPT/HCPCS: 36415; 80048; 81001; 85007; 85027; 93005; 93970; 99285

== ENCOUNTER 2024-01-21 15:57 | Emergency (ER) | payer BC, SELFPAY ==
--- OUTSIDE RECORDS SUMMARY | 2024-01-21 16:03 | XMS_ITS | CCD ---
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 Name Role Phone Unavailable Primary Care Provider UnavailKEYUR Montoya Attending Unavailable ASHUTOSH, JIGNA Cuba Attending Unavailable BRYANANDER, JIGNA [place] Admitting Unavailable ELSA, DR SIVA Corrales Consulting Unavailable LYMORENITA Admitting Unavailable LYMORENITA Attending Unavailable LYMORENITA Consulting Unavailable ESTEVANEBSANDRA, DR KWESI Becerra Consulting Unavailable JIGNA BOYKIN Admitting Unavailable HIGHLANDER, JIGNA Cuba Attending Unavailable ASHUTOSH, JIGNA Cuba Consulting Unavailable ALEXANDER, DR KWESI Becerra Consulting Unavailable HIGHLANDER, JIGNA Cuba Admitting Unavailable HIGHLANDER, JIGNA Cuba Attending Unavailable HIGHLANDER, JIGNA Cbua Consulting Unavailable ZIEBSANDRA, DR KWESI Becerra Consulting Unavailable LY, MORENITA Admitting Unavailable LY, MORENITA Attending Unavailable MORENITA MODI Consulting Unavailable FRANCESCA BYRD F Primary Care Unavailable KWESI ADAMS Attending Unavailable SYLWIA ESCOBAR Admitting Unavailable CRISTIAN, FRANCESCA F Referring Unavailable CRISTIAN, FRANCESCA F Primary Care Unavailable PASTOR WILKINS Attending Unavailable FRANCESCA BYRD Referring Unavailable CRISTIAN, FRANCESCA Reyes Primary Care Unavailable LEN VILLARREAL Referring Unavailable CRISTIAN, FRANCESCA F Primary Care Unavailable Flavio BUILDING MANAGER, Ella Becerra Unavailable Francesca Byrd MD Primary Care Provider Caty Rivera CNM Unavailable ELLA FOFANA Attending Unavailable ELLA FOFAAN Referring Unavailable CRISTIAN, FRANCESCA F Attending Unavailable ELLA FOFANA Attending Unavailable ELLA FOFANA Referring Unavailable CRISTIAN, FRANCESCA F Attending Unavailable CRISTIAN, FRANCESCA Reyes Attending Unavailable CRISTIAN, FRANCESCA Reyes Attending Unavailable ELLA FOFANA Attending Unavailable LEN VILLARREAL Admitting Unavailable STEPHEN, LEN Attending Unavailable MANNELEN Attending Unavailable MANNLEN Theodore Attending Unavailable LEN VILLARREAL Attending Unavailable LEN VILLARREAL Referring Unavailable Allergies Allergy Classification Reported Allergen(s) Allergy Type Date of Onset Reaction(s) Facility (11 sources) Penicillins; Translations: [PENICILLINS] Propensity to adverse reactions to drug 02-27-2016 [facility] Medications Current Medications Medication Drug Class(es) Dates Sig (Normalized) Sig (Original) acetaminophen 500 mg oral tablet (6 sources) Start: 07-19-2023 acetaminophen (Tylenol) 500 MG tablet Take 1,000 mg by mouth in the morning and 1,000 mg at noon and 1,000 mg in the evening and 1,000 mg before bedtime. 07/19/2023 Active [id number] 200 actuat albuterol 0.09 mg/actuat metered dose inhaler (6 sources) beta2-Adrenergic Agonist Start: 05-20-2023 End: 05-19-2024 take 2 puff(s) by inhalation every four hours for wheezing albuterol HFA (ProAir HFA) 90 mcg/act inhaler Indications: Moderate persistent asthma with (acute) exacerbation (CMS/HCC) Inhale 2 puffs every 4 (four) hours if needed for wheezing 18 g 11 05/20/2023 05/19/2024 Active aspirin 81 mg delayed release oral tablet (6 sources) Platelet Aggregation Inhibitor, Nonsteroidal Anti-inflammatory Drug Start: 06-28-2023 take 1 tablet by mouth once daily aspirin 81 MG EC tablet Indications: Chest pain, unspecified type , Mixed hyperlipidemia (CMS/HCC) , Abnormal EKG Take 1 tablet (81 mg) by mouth Daily 90 tablet 3 06/28/2023 Active azithromycin 250 mg oral tablet (2 sources) Macrolide Antimicrobial Start: 01-03-2024 azithromycin (Zithromax) 250 MG tablet Indications: Acute bronchitis due to Mycoplasma pneumoniae Take 2 today then one daily until gone 6 tablet 01/03/2024 Active calcium carbonate 1250 mg chewable tablet (6 sources) calcium carbonat e (Os-Tarik) 1250 (500 Ca) MG chewable tablet Chew 1 tablet Daily Active cholecalciferol (Vitamin D3) 500 Unit split tablet (6 sources) cholecalciferol (Vitamin D3) 500 Unit split tablet Take by mouth Daily. Active omeprazole 40 mg delayed release oral capsule (6 sources) Proton Pump Inhibitor Start: 03-15-2023 take 1 capsule by mouth in the morning omeprazole (PriLOSEC) [address] capsule Indications: Dysphagia, unspecified type TAKE 1 CAPSULE (40 MG TOTAL) BY MOUTH IN THE MORNING 90 capsule 1 03/15/2023 Active rosuvastatin calcium 10 mg oral tablet (6 sources) HMG-CoA Reductase Inhibitor Start: 07-26-2023 take 1 tablet by mouth once daily rosuvastatin (Crestor) 10 MG tablet Indications: Chest pain, unspecified type , Mixed hyperlipidemia (CMS/HCC) TAKE 1 TABLET (10 MG) BY MOUTH DAILY. 90 tablet 1 07/26/2023 Active Trelegy Ellipta 200-62.5-25 MCG/ACT aerosol powder (6 sources) take 1 puff(s) by mouth in the morning Trelegy Ellipta 200-62.5-25 MCG/ACT aerosol powder INHALE 1 PUFF BY MOUTH AND INTO THE LUNGS IN THE MORNING Active Completed/Discontinued Medications Medication Drug Class(es) Dates Sig (Normalized) Sig (Original) microencapsulated potassium chloride 20 meq extended release oral tablet (2 sources) Start: 01-03-2022 End: 01-03-2022 potassium chloride (K-DUR) tablet ER 20 mEq tiZANidine 4 mg oral tablet (6 sources) Central alpha-2 Adrenergic Agonist Start: 07-19-2023 End: 01-03-2024 take 1 tablet by mouth every six hours as needed tiZANidine (Zanaflex) 4 MG tablet Take 4 mg by mouth every 6 (six) hours if needed 07/19/2023 01/03/2024 Discontinued (Ineffective) Problems Active Problems Problem Classification Problem Date Documented Date Episodic/Chronic Acute bronchitis (2 sources) Acute mycoplasmal bronchitis; Translations: [Acute bronchitis due to Mycoplasma pneumoniae] 01-03-2024 Episodic Asthma (6 sources) Exacerbation of moderate persistent asthma; Translations: [Moderate persistent asthma with (acute) exacerbation] Onset: 12-24-2022 12-24-2022 Chronic Cardiac dysrhythmias (6 sources) Paroxysmal supraventricular tachycardia; Translations: [Paroxysmal supraventricular tachycardia] Onset: 04-16-2011 12-24-2022 Chronic Coronary atherosclerosis and other heart disease (6 sources) Arteriosclerotic vascular disease; Translations: [Atherosclerotic heart disease of [place] coronary artery without angina pectoris] Onset: 04-01-2020 3 Chronic Disorders of lipid metabolism (6 sources) Hyperlipidemia; Translations: [Hyperlipidemia, unspecified] Onset: 01-27-2016 12-24-2022 Chronic Esophageal disorders (6 sources) Gastro-esophageal reflux disease with esophagitis; Translations: [Gastroesophageal reflux disease with esophagitis] Onset: 12-24-2022 12-24-2022 Chronic Essential hypertension (7 sources) Hypertensive disorder; Translations: [Essential hypertension] Onset: 04-21-2021 12-24-2022 Chronic Fracture of lower limb (5 sources) Stress fracture, right foot, subsequent encounter for fracture with routine healing; Translations: [Nondisplaced fracture of fifth metatarsal bone, right foot, subsequent encounter for fracture with routine healing] Onset: 05-16-2022 Episodic Heart valve disorders (6 sources) Aortic valve regurgitation; Translations: [Nonrheumatic aortic (valve) insufficiency] Onset: 12-24-2022 12-24-2022 Chronic Immunizations and screening for infectious disease (2 sources) Anti-nuclear factor positive; Translations: [Other specified abnormal immunological findings in serum] 12-31-2023 Episodic Osteoarthritis (4 sources) Unilateral primary osteoarthritis of first carpometacarpal joint, right hand; Translations: [Bilateral primary osteoarthritis of first carpometacarpal joints] Onset: 09-29-2023 Chronic Other and ill-defined heart disease (1 source) Other ill-defined heart diseases; Translations: [Other ill-defined heart diseases] Onset: 04-01-2020 Chronic Other and ill-defined heart disease (6 sources) Diastolic dysfunction; Translations: [Other ill-defined heart diseases] Onset: 04-01-2020 12-24-2022 Chronic Other connective tissue disease (4 sources) [...] [Shortness of breath] Onset: 01-03-2022 Episodic Other non-traumatic joint disorders (2 sources) Joint pain; Translations: [Pain in unspecified joint] 12-30-2023 Episodic Other nutritional; endocrine; and metabolic disorders (6 sources) Obesity; Translations: [Class 1 obesity in adult] Onset: 03-04-2020 12-24-2022 Chronic Other nutritional; endocrine; and metabolic disorders (6 sources) Body mass index 30+ - obesity; Translations: [Obesity, unspecified] Onset: 04-21-2021 12-24-2022 Chronic Other nutritional; endocrine; and metabolic disorders (2 sources) Weight increased; Translations: [Abnormal weight gain] 12-30-2023 Episodic Other upper respiratory disease (6 sources) Allergic rhinitis; Translations: [Allergic rhinitis, unspecified] Onset: 03-05-2016 12-24-2022 Chronic Residual codes; unclassified (6 sources) Daytime hypersomnia; Translations: [Hypersomnia, unspecified] Onset: 12-24-2022 12-24-2022 Chronic Residual codes; unclassified (6 sources) Obstructive sleep apnea syndrome; Translations: [Obstructive sleep apnea (adult) (pediatric)] Onset: 01-04-2020 12-24-2022 Chronic Residual codes; unclassified (1 source) Pain, unspecified; Translations: [Pain, unspecified] Onset: 07-18-2023 Episodic Spondylosis; intervertebral disc disorders; other back problems (3 sources) Neck pain; Translations: [Cervicalgia] Onset: 01-03-2022 Episodic Unclassified (1 source) Full code Onset: 07-18-2023 Unclassified (1 source) Supraventricular tachycardia, unspecified; Translations: [Supraventricular tachycardia, unspecified] Onset: 05-31-2017 Past or Other Problems Problem Classification Problem Date Documented Da te Episodic/Chronic Diseases of mouth; excluding dental (8 sources) Salivary gland finding; Translations: [Disease of salivary gland, unspecified] Onset: 12-24-2022 12-24-2022 Episodic Fluid and electrolyte disorders (6 sources) Hypokalemia; Translations: [Hypokalemia] Onset: 04-21-2021 12-24-2022 Episodic Other connective tissue disease (5 sources) Pain of bilateral hands; Translations: [Pain in right hand] Onset: 09-29-2023 12-30-2023 Episodic Other connective tissue disease (2 sources) Pain in right hand; Translations: [Pain in right hand] Onset: 09-29-2023 Episodic Other connective tissue disease (2 sources) Pain in left hand; Translations: [Pain in left hand] Onset: 09-29-2023 Episodic Other gastrointestinal disorders (6 sources) Dysphagia; Translations: [Dysphagia, unspecified] Onset: 12-24-2022 12-24-2022 Episodic Other screening for suspected conditions (not mental disorders or infectious disease) (1 source) Abnormal result of other cardiovascular function study; Translations: [Abnormal result of other cardiovascular function study] Onset: 02-07-2020 Episodic Residual codes; unclassified (6 sources) Family history of sarcoidosis; Translations: [Family history of diseases of the blood and blood-forming organs and certain disorders involving the immune mechanism] Onset: 03-05-2016 12-24-2022 Episodic Results Test Name Value Interpretation Reference Range Facility Follow-Upon 01-05-2024 Follow-Up [id number] Claudia Pittman 1960 F Date Provider Department Center 01/05/2024 LEN BROWN [facility] No family history on file Level of Service:10660 [place] POSTOP FOLLOW UP VISIT RELATED TO ORIGINAL PX (24,GC) Reason for Visit and Comments: Follow-up [600607] [facility] 36on 12-27-2023 36 Spoke with patient and informed her that I do not have it, and my fax number was given [facility] 36 Pt calling to see if you received her short temp disability paperwork? Didn't see anything in the media? Rubio states they faxed paper work December 11? [facility] Office Visiton 11-30-2023 Follow-up visit [id number] Claudia Pittman 1960 F Date Provider Department Center 11/30/2023 LEN BROWN MP [facility]TH[facility] MP[facility]TH[facility] No family history on file Level of Service:58318 [place] POSTOP FOLLOW UP VISIT RELATED TO ORIGINAL PX Reason for Visit and Comments: Post-op [483] [facility] HPon 11-15-2023 History Of Present Illness Claudia Pittman is a 63 y.o. female presenting withBilateral thumb CMC joint arthritis. She was scheduled to have her left thumb taken care of today, but she is unable to remove any of her rings. She opted to have the right hand done today and then come back and do the left at a later date. Both are bothering her equally in both of been treated nonoperatively for quite some time. We will plan on doing a right Dubon arthroplasty. 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 Surgical History She has a past surgical history that includes Tonsillectomy; Upper gastrointestinal endoscopy; Colonoscopy; section, low transverse; Cardiac catheterization; and Hernia repair. Social History She reports that she has never smoked. She has never used smokeless tobacco. She reports that she does not use drugs. No history on file for alcohol use. Family History No family history on file. Allergies Penicillins Medications No medications prior to admission. Review of Systems Last Recorded Vitals Visit Vitals Smoking Status Never Physical Exam Constitutional: Appearance: Normal appearance. Cardiovascular: Rate and Rhythm: Normal rate. Pulmonary: Effort: Pulmonary effort is normal. Musculoskeletal: Comments: There is tenderness to palpation around the CMC joint of the right thumb. She has reproduction of pain with a grind test. Neurological: Mental Status: She is alert. Relevant Lab Results No results found for: NA , K , CL , CO2 , BUN , CREATININE , GLUCOSE , CALCIUM , ANIONGAP , EGFR , BCR Relevant Imaging Results XR hand 3+ views right Narrative: XR HAND 3+ VIEWS RIGHT HISTORY: Bilateral hand pain COMPARISON: None FINDINGS: No fracture or dislocation. There is no destructive osseous lesion. Degenerative changes of the first CMC and most of the interphalangeal joints, most notable at the first interphalangeal joint and the fifth distal interphalangeal joint. Also mild degenerative change at the radiocarpal joint. Carpal alignment appears intact. Impression: Degenerative changes consistent with osteoarthrosis. Approved by:Zach Mendez09/30/2023 8:54 AM. Rohan Polanco,have reviewed the image(s) and agree with the findings in this report. Electronically signed: Rohan Rivero. XR hand 3+ views left Narrative: XR HAND 3+ VIEWS LEFT HISTORY: Bilateral hand pain COMPARISON: None FINDINGS: There is no acute fracture or dislocation There is no destructive osseous lesion. Carpal alignment appears intact. There is joint space loss at the first CMC, first MCP, and all of the PIP and DIP joints. There is also mild degenerative change at the radiocarpal joint There are some areas of soft tissue prominence in the digits which most likely represent Heberden and Samra nodes. There is a peripherally calcified loose body just distal to the ulnar styloid process. Impression: Degenerative changes in the left hand consistent with osteoarthrosis. Approved by:Zach Mendez09/30/2023 8:48 AM. I, Rohan Rivero,have reviewed the image(s) and agree with the findings in this report. Electronically signed: Rohan Rivero. Assessment/Plan Principal Problem: Pain in both hands Soft tissue arthroplasty right thumb. Normal [facility] NURSNOTEon 11-15-2023 NURSNOTE Eleanor is at bedside delivering prescriptions Normal [facility] NURSNOTE Family is at bedside [facility] OP[facility] Operative Note Patient: Claudia Pittman Date of Surgery: 11/15/2023 : 1960 Pre-operative Diagnosis: Carpometacarpal joint arthritis of the right thumb Post-operative Diagnosis: same Operation: Ligament reconstruction and tendon interposition arthroplasty of the right thumb (06652), Using flexor carpi radialis tendon graft harvested through a separate incision (68500) Surgeon: Len Villarreal MD Pot Puller: John Ovalle MD Staff: Senior Corporate Recruiter: Cristina Little RN Scrub Person: Cristina Baca CST [place]ee Senior Corporate Recruiter: Darrius Miguel RN Anesthesia Type: Regional Indications: Claudia Pittman is a 63 y.o. female with worsening pain at the basilar joint of the right thumb. This has been a worsening problem over time and has been treated nonoperatively. The symptoms are to a point where it is interfering with required daily activities. It was felt that a soft tissue arthroplasty is indicated for treatment at this time. The risks and benefits of the procedure were explained, and with good understanding it is agreed to proceed. Procedure: The patient is brought to the operating room and placed on the table in a supine position. An axillary block had been administered per the anesthesia service in the holding area. A tourniquet is placed around the proximal right arm. Preoperative antibiotics were given. The upper extremity is then prepped and draped out in a sterile fashion. To begin the procedure, after a standard timeout, the arm is exsanguinated with an Esmarch bandage and the tourniquet is inflated to 250 mmHg. Using a 15 blade, a curvilinear incision is made along the lateral aspect of the base of the thumb. Blunt dissection is carried out through the subcutaneous tissue. Care was taken to identify branches of the superficial radial nerve.Two Sho rakes were used to protect the soft tissues.The APL and EPB tendons were identified. The EPB tendon was dissected free and retracted dorsally. Using a Bovie, we use the plane between the 2 tendons to expose the base of the thumb metacarpal, the CMC joint and the trapezium. Once we had adequate exposure, and the anatomic landmarks were clearly defined, the trapezium was excised in a piecemeal fashion using a small rongeur. The CMC joint had significant degenerative changes. Care was taken to avoid the FCR tendon as we resected the volar portion of the bone. Once the trapezium was resected, we looked at the STT joint. There was no arthritis seen We then made sure that there were no residual osteophytes between the base of the thumb and index metacarpals. Next, we grasped the FCR tendon with a Ragnell retractor. By placing tension on the tendon it is easily palpable at the junction of the middle and distal thirds of the forearm. The tendons it is exposed through a transverse incision at that level. The tendon is dissected free, isolated, and then transected using a Bovie. We use the Ragnell retractor to pull the tendon into the wound at the base of the thumb. The tendon is split in half longitudinally, creating two slips of tendon. We then turned our attention to the base of the thumb metacarpal. An oblique drill hole is made that is perpendicular with the thumb nail plate and exits right near the FCR tendon insertion. Using a Covarrubias suture passer, one slip of the FCR tendon was pulled through our drill hole. The tendon was looped around the base of the metacarpal and then tied together with, and sutured to, the other slip of tendon. The wound is irrigated thoroughly with normal saline solution. The remaining tendon from both slips is rolled up onto a forceps and sutured together into a ball. That tendon ball is used to fill the space from where the trapezium was excised. The capsule is closed with [id number] sutures of 3-0 Vicryl. The skin is closed on both incisions using 5-0 Prolene suture. A sterile dressing of Xeroflo gauze, 4 x 4 fluffs, web roll and a short arm thumb spica plaster splint is applied. The drapes were removed and the tourniquet is released. The arm was placed into a sling because of the regional block. All sponge and needle counts were correct at the time of closure. She was then brought to the recovery room in stable condition, having tolerated the procedure well. Estimate Blood Loss: Minimal Specimens: No specimens collected Implants: Complications: None; patient tolerated the procedure well. Len Villarreal MD Normal [facility] POCT GLUCOSE METER UNSOLICIT ED RESULTSon 11-15-2023 Glucose [Mass/Vol] 128 mg/dL High 70-105 [facility] Comment on above: Order Comment: Waive d Testing in the ED is performed under the ED CLIA certificate #[id number]. Result Comment: acle ment Performed By: #### L [id number] ####[facility] (BEAKER)[address] [place] [address] MRSA PCR NASALon 11-10-2023 MRSA DNA LORRI+probe Ql (Unsp spec) Negative Normal NEG [facility] Comment on above: Performed By: #### 3 5492-8 #### [facility] ([id number]) [address], [address] [place] [address] [id number] 11-05-2023 [id number] SURGERY DATE:11/15/23 LM with instructions Need MRSA test done prior to Medications to take Morning of surgery: Prilosec and may use inhaler Medications to hold Morning of surgery: Medications to hold 5-7 days prior to surgery: NSAIDs: Vitamins and Supplements: IF YOU ARE GOING HOME AFTER YOUR SURGERY OR PROCEDURE, FOR YOUR SAFETY, YOUR SURGERY WILL BE CANCELLED IF BOTH OF THE FOLLOWING ARE NOT AVAILABLE: An adult local intermodal truck driver over the age of 18, that can receive information about your care after surgery, and drive you home. A responsible adult to stay with you for 24 hours in case of an emergency. Can be same as above. The highest risk of complications is within the first 24 hours after sedation/anesthesia. Nothing to eat or drink after midnight the night before surgery. This includes gum, candy, mints, and lozenges. No alcohol, marijuana, or tobacco products including vaping for 24 hours. Please brush your teeth; don't swallow the toothpaste or water. If you use dentures, wear them but do not use paste. Please leave any other removable dental hardware at home. Do not put in contact lenses. Do not wear perfume, make-up, nail bahamian, or lotions on the day of your surgery or procedure. Follow skin-prep/wipe instructions as below if required. Bring with you: *Insurance card *Photo ID *Medication list *Co-pay for visit/prescriptions If applicable: *Rescue inhalers *Green bracelet from lab *CPAP or BiPAP machine, if staying overnight *Any braces, splints, or equipment ordered preoperatively *Remote controls for implanted devices Leave at home: *Purse/Wallet/Tay- unless needed for co-pay *Cell phone (can leave with family/friend or place in locker if needed) *Jewelry (including piercings and wedding bands) *If not possible, ask the person who is waiting with you to keep them Children under the age of 12 will not be allowed into patient care areas. We will call you between 3pm and 4pm the day before your surgery to give you an arrival time. If you do not receive this call, have any questions, or need to make any changes, please call [phone]. Notify your surgeon if you develop any illness such as a cold, cough, fever, sore throat or vomiting between now and your surgery. Thank you for entrusting us with your care. [facility] Surgical Services Team [facility] 36on 09-30-2023 36 Patient was rescheduled for 11/15/2023 [facility] 36 Patient would like t o reschedule surgery [facility] Office Visiton 09-29-2023 Follow-up visit [id number] Claudia Pittman 1960 F Date Provider Department Center 09/29/2023 LEN BROWN MP ORTHO MPORTHO No family history on file Level of Service:97616 [place] OFFICE/OUTPATIENT NEW LOW MDM 30 MINUTES (GC) Reason for Visit and Comments: Pain [136] New Patient [632] Pain [136] New Patient [632] [facility] BASIC METABOLIC PANLon 07-18 Anion gap [Moles/Vol] 8 mmol/L Normal 5-15 [facility] Comment on above: Performed By: #### C BCA, 26320-7, PINR, 79918-5, 1798-8, CMP, 5643-2 #### [facility] LAB ([id number]) [address], [address] [place] [address] Calcium [Mass/Vol] 7.9 mg/dL Low 8.5-10.5 [facility] Comment on above: Performed By: #### C BCA, 65410-9, PINR, 48109-3, 1798-8, CMP, 5643-2 #### [facility] ([id number]) [address], [address] [place] [address] Chloride [Moles/Vol] 109 mmol/L Normal 98-109 [facility] Comment on above: Performed By: #### C BCA, 75200-4, PINR, 03452-1, 1798-8, CMP, 5643-2 #### [facility] ([id number]) [address], [address] [place] [address] CO2 [Moles/Vol] 26 mmol/L Normal 22-32 [facility] Comment on above: Performed By: #### C BCA, 55633-4, PINR, 86309-7, 1798-8, CMP, 5643-2 #### [facility] ([id number]) [address], [address] [place] [address] Creatinine [Mass/Vol] 0.45 mg/dL Normal 0.40-1.00 [facility] Comment on above: Result Comment: METH OD TRACEABLE TO IDMS STANDARD Performed By: #### C BCA, 47236-0, PINR, 13787-4, 1798-8, CMP, 5643-2 #### [facility] ([id number]) [address], [address] [place] [address] eGFR (CKD-EPI) NON-RACE DEPENDENT >90 Normal >59 [facility] Comment on above: Result Comment: Reported eGFR is based on the CKD-EPI 2020 equation that does not use a race coefficient. Performed By: #### C BCA, 19518-4, PINR, 55654-8, 1798-8, CMP, 5643-2 #### [facility] ([id number]) [address], [address] [place] [address] Glucose [Mass/Vol] 95 mg/dL Normal 65-99 [facility] Comment on above: Performed By: #### C BCA, 81205-7, PINR, 09695-6, 1798-8, CMP, 5643-2 #### [facility] ([id number]) [address], [address] [place] [address] Potassium [Moles/Vol] 3.6 mmol/L Normal 3.5-5.0 [facility] Comment on above: Performed By: #### C BCA, 27765-1, PINR, 98773-8, 1798-8, CMP, 5643-2 #### [facility] ([id number]) [address], [address] [place] [address] Sodium [Moles/Vol] 143 mmol/L Normal 134-146 [facility] Comment on above: Performed By: #### C BCA, 89032-8, PINR, 21958-2, 1798-8, CMP, 5643-2 #### [facility] ([id number]) [address] [address] [place] [address] Urea nitrogen [Mass/Vol] 10 mg/dL Normal 5-27 [facility] Comment on above: Performed By: #### C BCA, 78011-1, PINR, 76794-5, 1798-8, CMP, 5643-2 #### [facility] ([id number]) [address] [address] CBC AND AUTO DIFFon 07-19-19 24 ABSOLUTE BASOPHIL 0.0 X10E9/L Normal 0.0-0.2 [facility] Comment on above: Performed By: #### C BCA, 56006-0, PINR, 17899-0, 1797-8, CMP, 5643-2 #### [facility] ([id number]) [address] [address] ABSOLUTE NEUTROPHIL 4.9 X10E9/L Normal 1.5-6.6 [facility] Comment on above: Performed By: #### C BCA, 26148-7, PINR, 57096-0, 1797-8, CMP, 5643-2 #### [facility] ([id number]) [address] [address] Basophils/100 WBC (Bld) 0.5 % Normal [facility] Comment on above: Performed By: #### C BCA, 58456-9, PINR, 24944-3, 8-8, CMP, 5643-2 #### [facility] ([id number]) [address] [address] Eosinophils (Bld) [#/Vol] 0.2 10*3/uL Normal 0.0-0.4 [facility] Comment on above: Performed By: #### C BCA, 90504-2, PINR, 23755-5, 1798-8, CMP, 5643-2 #### [facility] ([id number]) [address] [address] [place] [address] Eosinophils/100 WBC (Bld) 3.0 % Normal [facility] Comment on above: Performed By: #### C BCA, 00916-0, PINR, 24092-3, 1798-8, CMP, 5643-2 #### [facility] ([id number]) [address] [address] Erythrocyte distribution width (RBC) [Ratio] 12.2 % Normal 11.5-15.0 [facility] Comment on above: Performed By: #### C BCA, 15875-1, PINR, 36982-0, 1797-8, CMP, 5643-2 #### [facility] ([id number]) [address] [address] Hematocrit (Bld) [Volume fraction] 35.9 % Normal 35-47 [facility] Comment on above: Performed By: #### C BCA, 84712-5, PINR, 49418-0, 1797-8, CMP, 5643-2 #### [facility] ([id number]) [address] [address] Hemoglobin (Bld) [Mass/Vol] 12.6 g/dL Normal 11.7-15.5 [facility] Comment on above: Performed By: #### C BCA, 73360-9, PINR, 74301-9, 1797-8, CMP, 5643-2 #### [facility] ([id number]) [address] [address] Lymphocytes (Bld) [#/Vol] 1.7 10*3/uL Normal 1.0-3.5 [facility] Comment on above: Performed By: #### C BCA, 74510-1, PINR, 56465-3, 1798-8, CMP, 5643-2 #### [facility] ([id number]) [address], [address] [place] [address] Lymphocytes/100 WBC (Bld) 22.7 % Normal [facility] Comment on above: Performed By: #### C BCA, 82983-3, PINR, 21263-1, 1798-8, CMP, 5643-2 #### [facility] ([id number]) [address], [address] [place] [address] MCH (RBC) [Entitic mass] 30.9 pg Normal 27-34 [facility] Comment on above: Performed By: #### C BCA, 78907-8, PINR, 82168-7, 1797-8, CMP, 5643-2 #### [facility] ([id number]) [address], [facility] [address] [place] [address] MCHC (RBC) [Mass/Vol] 34.9 g/dL Normal 32-36 [facility] Comment on above: Performed By: #### C BCA, 74202-7, PINR, 72308-8, 1798-8, CMP, 5643-2 #### [facility] ([id number]) [address], [facility] [address] [place] [address] MCV (RBC) [Entitic vol] 89 fL Normal 80-100 [facility] Comment on above: Performed By: #### C BCA, 38773-6, PINR, 78759-0, 1798-8, CMP, 5643-2 #### [facility] ([id number]) [address] [address] [place] [address] Monocytes (Bld) [#/Vol] 0.8 10*3/uL Normal 0-0.9 [facility] Comment on above: Performed By: #### C BCA, 77471-9, PINR, 92134-2, 1798-8, CMP, 5643-2 #### [facility] ([id number]) [address], [facility] [address] [place] [address] Monocytes/100 WBC (Bld) 10.1 % Normal [facility] Comment on above: Performed By: #### C BCA, 00303-9, PINR, 78983-6, 1798-8, CMP, 5643-2 #### [facility] ([id number]) [address], [facility] [address] [place] [address] Neutrophils/100 WBC (Bld) 63.7 % Normal [facility] Comment on above: Performed By: #### C BCA, 53279-2, PINR, 72775-6, 1798-8, CMP, 5643-2 #### [facility] ([id number]) [address], [facility] [address] [place] [address] Platelet mean volume (Bld) [Entitic vol] 7.8 fL Normal 7-12 [facility] Comment on above: Performed By: #### C BCA, 15991-1, PINR, 81594-8, 1798-8, CMP, 5643-2 #### [facility] ([id number]) [address] [address] [place] [address] Platelets (Bld) [#/Vol] 298 10*3/uL Normal 150-450 [facility] Comment on above: Performed By: #### C BCA, 79636-0, PINR, 57172-9, 1798-8, CMP, 5643-2 #### [facility] ([id number]) [address], [facility] [address] [place] [address] RBC COUNT 4.06 X10E12/L Normal 3.80-5.20 [facility] Comment on above: Performed By: #### C BCA, 08016-7, PINR, 23890-1, 1798-8, CMP, 5643-2 #### [facility] ([id number]) [address] [address] [place] [address] WBC (Bld) [#/Vol] 7.6 10*3/uL Normal 4.0-11.0 [facility] Comment on above: Performed By: #### C BCA, 80445-4, PINR, 75185-9, 1798-8, CMP, 5643-2 #### [facility] ([id number]) [address], [address] [place] [address] AMYLASEon 07-18-2023 Amylase [Catalytic activity/Vol] 83 U/L Normal 28-100 [facility] Comment on above: Performed By: #### C BCA, 84033-9, PINR, 60050-0, 1797-8, CMP, 5643-2 #### [facility] ([id number]) [address] [facility] [place] [address] Aldosterone [Mass/Vol]on ALDOSTERONE 12.6 ng/dL Normal [facility] Comment on above: Result Comment: NOTE INTERPRETIVE [...] reference intervals for this test in the [facility] Test Directory ([employer]). Performed By: [facility] [address] [place] [address] Supervisor Heading: Jovanni Luna MD, PhD CLIA Number: [id number] CBC AND AUTO DIFFon 07-18-19 24 ABSOLUTE BASOPHIL 0.1 X10E9/L Normal 0.0-0.2 [facility] Comment on above: Performed By: #### C BCA, 53625-9, PINR, 12401-3, 8, CMP, 5643-2 #### [facility] ([id number]) [address], [address] [place] [address] ABSOLUTE NEUTROPHIL 12.1 X10E9/L High 1.5-6.6 [facility] Comment on above: Performed By: #### C BCA, 05973-9, PINR, 67760-4, 1797-8, CMP, 5643-2 #### [facility] ([id number]) [address], [address] [place] [address] Basophils/100 WBC (Bld) 0.7 % Normal [facility] Comment on above: Performed By: #### C BCA, 65802-2, PINR, 91793-9, 1797-, CMP, 5643-2 #### [facility] ([id number]) [address], [address] [place] [address] Eosinophils (Bld) [#/Vol] 0.0 10*3/uL Normal 0.0-0.4 [facility] Comment on above: Performed By: #### C BCA, 12450-5, PINR, 37309-2, 1797-09, CMP, 5643-2 #### [facility] ([id number]) [address], [address] [place] [address] Eosinophils/100 WBC (Bld) 0.1 % Normal [facility] Comment on above: Performed By: #### C BCA, 15836-9, PINR, 00337-3, 1797-8, CMP, 5643-2 #### [facility] ([id number]) [address], [address] [place] [address] Erythrocyte distribution width (RBC) [Ratio] 12.1 % Normal 11.5-15.0 [facility] Comment on above: Performed By: #### C BCA, 26643-1, PINR, 76891-6, 1797-8, CMP, 5643-2 #### [facility] ([id number]) [address], [facility] [address] [place] [address] Hematocrit (Bld) [Volume fraction] 37.1 % Normal 35-47 [facility] Comment on above: Performed By: #### C BCA, 84780-0, PINR, 59770-6, 1798-8, CMP, 5643-2 #### [facility] ([id number]) [address], [facility] [address] [place] [address] Hemoglobin (Bld) [Mass/Vol] 12.7 g/dL Normal 11.7-15.5 [facility] Comment on above: Performed By: #### C BCA, 44855-5, PINR, 41229-6, 1797-8, CMP, 5643-2 #### [facility] ([id number]) [address] [address] Lymphocytes (Bld) [#/Vol] 1.7 10*3/uL Normal 1.0-3.5 [facility] Comment on above: Performed By: #### C BCA, 94189-7, PINR, 60679-0, 1797-8, CMP, 5643-2 #### [facility] ([id number]) [address] [address] Lymphocytes/100 WBC (Bld) 11.2 % Normal [facility] Comment on above: Performed By: #### C BCA, 23533-9, PINR, 04951-4, 1797-8, CMP, 5643-2 #### [facility] ([id number]) [address] [address] [place] [address] MCH (RBC) [Entitic mass] 30.4 pg Normal 27-34 [facility] Comment on above: Performed By: #### C BCA, 54480-1, PINR, 02503-3, 1798-8, CMP, 5643-2 #### [facility] ([id number]) [address], [address] [place] [address] MCHC (RBC) [Mass/Vol] 34.2 g/dL Normal 32-36 [facility] Comment on above: Performed By: #### C BCA, 93423-5, PINR, 56046-9, 1798-8, CMP, 5643-2 #### [facility] ([id number]) [address], [address] [place] [address] MCV (RBC) [Entitic vol] 89 fL Normal 80-100 [facility] Comment on above: Performed By: #### C BCA, 82381-0, PINR, 84250-5, 179-8, CMP, 5643-2 #### [facility] ([id number]) [address], [address] [place] [address] Monocytes (Bld) [#/Vol] 1.0 10*3/uL High 0-0.9 [facility] Comment on above: Performed By: #### C BCA, 31680-8, PINR, 27092-6, 1798-8, CMP, 5643-2 #### [facility] ([id number]) [address], [address] [place] [address] Monocytes/100 WBC (Bld) 6.9 % Normal [facility] Comment on above: Performed By: #### C BCA, 39242-7, PINR, 08047-0, 1798-8, CMP, 5643-2 #### [facility] ([id number]) [address], [address] [place] [address] Neutrophils/100 WBC (Bld) 81.1 % Normal [facility] Comment on above: Performed By: #### C BCA, 48016-9, PINR, 65762-5, 1798-8, CMP, 5643-2 #### [facility] ([id number]) [address], [address] [place] [address] Platelet mean volume (Bld) [Entitic vol] 7.5 fL Normal 7-12 [facility] Comment on above: Performed By: #### C BCA, 19040-0, PINR, 52239-9, 1798-8, CMP, 5643-2 #### [facility] ([id number]) [address], [facility] [address] [place] [address] Platelets (Bld) [#/Vol] 341 10*3/uL Normal 150-450 [facility] Comment on above: Performed By: #### C BCA, 99664-7, PINR, 29635-8, 1798-8, CMP, 5643-2 #### [facility] ([id number]) [address], [facility] [address] [place] [address] RBC COUNT 4.17 X10E12/L Normal 3.80-5.20 [facility] Comment on above: Performed By: #### C BCA, 03570-4, PINR, 37674-0, 1798-8, CMP, 5643-2 #### [facility] ([id number]) [address], [address] [address] WBC (Bld) [#/Vol] 14.9 10*3/uL High 4.0-11.0 [facility] Comment on above: Performed By: #### C BCA, 21716-9, PINR, 61335-4, 1798-8, CMP, 5643-2 #### [facility] ([id number]) [address], [facility] [address] [place] [address] COMPREHENSIVE METABOLIC PANE Gomez 07-18-2023 Albumin [Mass/Vol] 4.2 g/dL Normal 3.2-5.3 [facility] Comment on above: Performed By: #### C BCA, 58720-7, PINR, 45425-9, 1798-8, CMP, 5643-2 #### [facility] ([id number]) [address], [address] [place] [address] ALP [Catalytic activity/Vol] 56 U/L Normal 39-130 [facility] Comment on above: Performed By: #### C BCA, 98754-2, PINR, 39758-1, 1798-8, CMP, 5643-2 #### [facility] ([id number]) [address], [address] [place] [address] ALT [Catalytic activity/Vol] 21 U/L Normal 0-31 [facility] Comment on above: Performed By: #### C BCA, 29730-8, PINR, 89623-6, 1798-8, CMP, 5643-2 #### [facility] ([id number]) [address], [address] [place] [address] Anion gap [Moles/Vol] 11 mmol/L Normal 5-15 [facility] Comment on above: Performed By: #### C BCA, 84878-1, PINR, 90391-0, 1798-8, CMP, 5643-2 #### [facility] ([id number]) [address], [address] [place] [address] AST [Catalytic activity/Vol] 24 U/L Normal 0-41 [facility] Comment on above: Performed By: #### C BCA, 76618-6, PINR, 83929-3, 1798-8, CMP, 5643-2 #### [facility] ([id number]) [address], [address] [place] [address] Bilirubin [Mass/Vol] 0.6 mg/dL Normal 0.3-1.2 [facility] Comment on above: Performed By: #### C BCA, 60844-1, PINR, 22177-4, 1798-8, CMP, 5643-2 #### [facility] ([id number]) [address], [address] [place] [address] Calcium [Mass/Vol] 8.7 mg/dL Normal 8.5-10.5 [facility] Comment on above: Performed By: #### C BCA, 45356-2, PINR, 16339-5, 1798-8, CMP, 5643-2 #### [facility] ([id number]) [address], [address] [place] [address] Chloride [Moles/Vol] 101 mmol/L Normal 98-109 [facility] Comment on above: Performed By: #### C BCA, 59951-5, PINR, 30728-1, 1798-8, CMP, 5643-2 #### [facility] ([id number]) [address], [address] [place] [address] CO2 [Moles/Vol] 27 mmol/L Normal 22-32 [facility] Comment on above: Performed By: #### C BCA, 41279-9, PINR, 48008-8, 1798-8, CMP, 5643-2 #### [facility] ([id number]) [address], [address] [address] Creatinine [Mass/Vol] 0.57 mg/dL Normal 0.40-1.00 [facility] Comment on above: Result Comment: METH OD TRACEABLE TO IDMS STANDARD Performed By: #### C BCA, 91120-0, PINR, 93391-6, 1798-8, CMP, 5643-2 #### [facility] ([id number]) [address], [address] [place] [address] eGFR (CKD-EPI) NON-RACE DEPENDENT >90 Normal >59 [facility] Comment on above: Result Comment: Reported eGFR is based on the CKD-EPI 2020 equation that does not use a race coefficient. Performed By: #### C BCA, 82448-9, PINR, 26864-1, 1798-8, CMP, 5643-2 #### [facility] ([id number]) [address], [address] [place] [address] Glucose [Mass/Vol] 144 mg/dL High 65-99 [facility] Comment on above: Performed By: #### C BCA, 48492-5, PINR, 52622-8, 1798-8, CMP, 5643-2 #### [facility] ([id number]) [address], [address] [place] [address] Potassium [Moles/Vol] 3.3 mmol/L Low 3.5-5.0 [facility] Comment on above: Performed By: #### C BCA, 67242-9, PINR, 57139-9, 1798-8, CMP, 5643-2 #### [facility] ([id number]) [address], [address] [place] [address] Protein [Mass/Vol] 6.7 g/dL Normal 6.0-8.0 [facility] Comment on above: Performed By: #### C BCA, 60741-2, PINR, 40900-1, 1797-8, CMP, 5643-2 #### [facility] ([id number]) [address], [address] [place] [address] Sodium [Moles/Vol] 139 mmol/L Normal 134-146 [facility] Comment on above: Performed By: #### C BCA, 31823-2, PINR, 44443-4, 1798-8, CMP, 5643-2 #### [facility] ([id number]) [address], [address] [place] [address] Urea nitrogen [Mass/Vol] 15 mg/dL Normal 5-27 [facility] Comment on above: Performed By: #### C BCA, 87616-0, PINR, 44683-6, 1798-8, CMP, 5643-2 #### [facility] ([id number]) [address] [place] [address] Corticotropin (P) [Mass/Vol] on 07-18-2023 ACTH 10.8 pg/mL Normal 7.2-63.3 [facility] Comment on above: Result Comment: NOTE ACTH Reference Range: 7-10 am: 7.2 - 63.3 pg/mL Test Performed By: [facility] [place] [address] [place] [address] Supervisor Heading: Robbie Tilley III, M.D. [facility] #[id number] Cortisol [Mass/Vol]on 2023 CORTISOL 4.9 ug/dL Normal [facility] Comment on above: Result Comment: Due to the diurnal variation of cortisol levels in normal subjects, all cortisol measurements should be referenced to the time of day of sample collection. AM Cortisol Age>=6 6.7-22.4 ug/dL PM Cortisol Age>=6 <10 ug/dL Performed By: #### H H, 2823-3, 2143-6 #### [facility] ([id number]) [address], [facility] [address] [place] [address] ETHANOLon 07-18-2023 Ethanol [Mass/Vol] mg/dL Normal 0.00-0.08 [facility] Comment on above: Result Comment: This report is intended for use in clinical monitoring or management of patients. Performed By: #### C ARMANDO, 07174-7, PINR, 83718-5, 1798-8, CMP, 5643-2 #### [facility] ([id number]) [address] [address] [place] [address] Fibrinogen Coagulation.deriv ed (PPP) [Mass/Vol]on 07-18-2023 FIBRINOGEN 317 mg/dL Normal 190-480 [facility] Comment on above: Performed By: #### C ARMANDO, 23745-3, PINR, 78593-0, 1798-8, CMP, 5643-2 #### [facility] ([id number]) [address], [address] [place] [address] HGB AND HCTon 07-18-2023 Hematocrit (Bld) [Volume fraction] 35.8 % Normal 35-47 [facility] Comment on above: Performed By: #### C BCA, 82681-6, PINR, 14372-2, 1798-8, CMP, 5643-2 #### [facility] ([id number]) [address], [address] [place] [address] Hemoglobin (Bld) [Mass/Vol] 12.3 g/dL Normal 11.7-15.5 [facility] Comment on above: Performed By: #### C BCA, 78627-3, PINR, 24986-7, 1798-8, CMP, 5643-2 #### [facility] ([id number]) [address], [address] [place] [address] Hematocrit (Bld) [Volume fraction] 36.4 % Normal 35-47 [facility] Comment on above: Performed By: #### C BCA, 05361-5, PINR, 29771-8, 1798-8, CMP, 5643-2 #### [facility] ([id number]) [address], [address] [place] [address] Hemoglobin (Bld) [Mass/Vol] 12.9 g/dL Normal 11.7-15.5 [facility] Comment on above: Performed By: #### C BCA, 10095-8, PINR, 15609-7, 1798-8, CMP, 5643-2 #### [facility] ([id number]) [address], [address] [place] [address] Hematocrit (Bld) [Volume fraction] 37.8 % Normal 35-[address] [place] [address] Comment on above: Performed By: #### H H, 2823-3, 2143-6 #### [facility] ([id number]) [address], [address] [place] [address] Hemoglobin (Bld) [Mass/Vol] 12.7 g/dL Normal 11.7-15.5 [facility] Comment on above: Performed By: #### H H, 2823-3, 2142-07 #### [facility] ([id number]) [facility] [address] [place] [address] POTASSIUMon 07-18-2023 Potassium [Moles/Vol] 3.7 mmol/L Normal 3.5-5.0 [facility] Comment on above: Performed By: #### H H, 282-3, 2142-07 #### [facility] ([id number]) [facility] [address] [place] [address] PROTIME AND INRon 07-18-2023 INR Coag (PPP) [Relative time] 1.0 {INR} Normal 0.8-1.1 [facility] Comment on above: Performed By: #### C BCA, 11733-3, PINR, 34918-7, 1798-8, CMP, 5643-2 #### [facility] ([id number]) [facility] [address] [place] [address] PT Coag (PPP) [Time] 11.9 s Normal 9.8-13.2 [facility] Comment on above: Performed By: #### C BCA, 03614-2, PINR, 87316-1, 1798-8, CMP, 5643-2 #### [facility] ([id number]) [address], [address] [place] [address] RENIN ACTIVITYon 07-18-2023 RENIN ACTIVITY 1.0 ng/mL/hr Normal [facility] Comment on above: Result Comment: NOTE INTERPRETIVE INFORMATION: Renin Activity Adult, Normal sodium diet: Supine ................. 0.2-1.6 ng/mL/hr Upright ................ 0.5-4.0 ng/mL/hr Children, Normal sodium diet, Supine: [place] (1-7 days) ..... 2.0-35.0 ng/mL/hr [place] blood [...] developed and its performance characteristics determined by [facility]. It has not been cleared or approved by the [place] Food and Drug Administration. This test was performed in a CLIA certified laboratory and is intended for clinical purposes. Performed By: [facility] [address] [place] [id number] Supervisor Heading: Jovanni Luna MD, PhD CLIA Number: [id number] aPTT Coag (PPP) [Time]on aPTT Coag (Bld) [Time] 32 s Normal 26-37 [facility] Comment on above: Performed By: #### C BCA, 46629-7, PINR, 94624-2, 1798-8, CMP, 5643-2 #### [facility] ([id number]) [address], [address] [place] [address] XR CHEST 2 VIEWSon 4 XR CHEST [...] IS VERY IMPORTANT TO YOUR HEALTH. THE [employer] GUIDELINES RECOMMEND THAT WOMEN 40 [...] B (Bld) [Mass/Vol] 13 pg/mL Normal 0-100 [facility] Comment on above: Order Comment: If hi story of congestive heart failure. Performed By: #### L AB980, BNP #### [facility] (DEFAULT) [address] [place] [id number] Interpretation and review of laboratory results Normal [facility] Natriuretic peptide B (Bld) [Mass/Vol] 13 pg/mL 0 - 100 pg/mL [facility] CBC AND ELECTRONIC DIFFon Basophils (Bld) [#/Vol] 0.04 10*3/uL Normal 0.00-0.15 [facility] Comment on above: Performed By: #### L AB980, BNP #### [facility] (DEFAULT) [address] [place] [address] Basophils/100 WBC (Bld) 0.3 % Normal [facility] Comment on above: Performed By: #### L AB980, BNP #### [facility] (DEFAULT) [address] [place] [address] DIFF STATUS Electronic Differential Normal [facility] Comment on above: Performed By: #### L AB980, BNP #### [facility] (DEFAULT) [address] [place] [address] Eosinophils (Bld) [#/Vol] 0.10 10*3/uL Normal 0.00-0.42 [facility] Comment on above: Performed By: #### L AB980, BNP #### [facility] (DEFAULT) [address] [place] [address] Eosinophils/100 WBC (Bld) 0.8 % Normal [facility] Comment on above: Performed By: #### L AB980, BNP #### [facility] (DEFAULT) [address] [place] [address] Hematocrit (Bld) [Volume fraction] 44.0 % Normal 34.9-44.3 [facility] Comment on above: Performed By: #### L AB980, BNP #### [facility] (DEFAULT) [address] [address] Hemoglobin (Bld) [Mass/Vol] 14.7 g/dL Normal 11.4-15.2 [facility] Comment on above: Performed By: #### L AB980, BNP #### [facility] (DEFAULT) [address] [place] [address] Immature Grans % 1.5 % Normal [facility] Comment on above: Performed By: #### L AB980, BNP #### [facility] (DEFAULT) [address] [address] Immature Grans Absolute 0.19 K/uL High <=0.08 [facility] Comment on above: Performed By: #### L AB980, BNP #### [facility] (DEFAULT) [address] [address] Lymphocytes (Bld) [#/Vol] 3.21 10*3/uL Normal 1.16-3.51 [facility] Comment on above: Performed By: #### L AB980, BNP #### [facility] (DEFAULT) [address] [address] Lymphocytes/100 WBC (Bld) 24.7 % Normal [facility] Comment on above: Performed By: #### L AB980, BNP #### [facility] (DEFAULT) [address] [address] MCV (RBC) [Entitic vol] 90.3 fL Normal 79.6-97.7 [facility] Comment on above: Performed By: #### L AB980, BNP #### [facility] (DEFAULT) [address] [address] Mean Cell Hgb 30.2 pg Normal 25.9-33.9 [facility] Comment on above: Performed By: #### L AB980, BNP #### [facility] (DEFAULT) [address] [place] [address]057 Mean Cell Hgb Conc 33.4 g/dL Normal 31.4-35.9 [facility] Comment on above: Performed By: #### L AB980, BNP #### [facility] (DEFAULT) [address] [address] Monocytes (Bld) [#/Vol] 1.01 10*3/uL High 0.22-0.87 [facility] Comment on above: Performed By: #### L AB980, BNP #### [facility] (DEFAULT) [address] [address] Monocytes/100 WBC (Bld) 7.8 % Normal [facility] Comment on above: Performed By: #### L AB980, BNP #### [facility] (DEFAULT) [address] [address] Nucleated RBC 0.0 /100 WBC Normal <=0.2 [facility] Comment on above: Performed By: #### L AB980, BNP #### [facility] (DEFAULT) [address] [address] Platelet mean volume (Bld) [Entitic vol] 9.0 fL Normal 8.5-12.2 [facility] Comment on above: Performed By: #### L AB980, BNP #### [facility] (DEFAULT) [address] [address] Platelets (Bld) [#/Vol] 409 10*3/uL High 150-393 [facility] Comment on above: Performed By: #### L AB980, BNP #### [facility] (DEFAULT) [address] [address] RBC (Bld) [#/Vol] 4.87 10*6/uL Normal 3.91-5.04 [facility] Comment on above: Performed By: #### L AB980, BNP #### [facility] (DEFAULT) [address] [place] [address]76 RBC Distribution 11.9 % Normal 10.8-14.9 [facility] Comment on above: Performed By: #### L AB980, BNP #### [facility] (DEFAULT) [address] [place] [address]657 Segs + Bands Auto 64.9 % Normal [facility] Comment on above: Performed By: #### L AB980, BNP #### [facility] (DEFAULT) [address] [place] [address] Segs + Bands,Absolute Auto 8.42 K/uL High 1.64-7.28 [facility] Comment on above: Performed By: #### L AB980, BNP #### [facility] (DEFAULT) [address] [place] [address] WBC (Bld) [#/Vol] 12.97 10*3/uL High 3.99-11.19 [facility] Comment on above: Performed By: #### L AB980, BNP #### [facility] (DEFAULT) [address] [place] [address] Basophils (Bld) [#/Vol] 0.04 10*3/uL 0.00 - 0.15 K/uL [facility] Basophils/100 WBC (Bld) 0.3 % [facility] Differential cell count method Nom (Bld) Electronic Differential [facility] Eosinophils (Bld) [#/Vol] 0.10 10*3/uL 0.00 - 0.42 K/uL [facility] Eosinophils/100 WBC (Bld) 0.8 % [facility] Erythrocyte distribution width (RBC) [Ratio] 11.9 % 10.8 - 14.9 % [facility] Hematocrit (Bld) [Volume fraction] 44.0 % 34.9 - 44.3 % [facility] Hemoglobin (Bld) [Mass/Vol] 14.7 g/dL 11.4 - 15.2 g/dL [facility] Immature granulocytes (Bld) [#/Vol] 0.19 10*3/uL High NINF - 0.08 K/uL [facility] Immature granulocytes/100 WBC (Bld) 1.5 % [facility] Interpretation and review of laboratory results Abnormal [facility] Lymphocytes (Bld) [#/Vol] 3.21 10*3/uL 1.16 - 3.51 K/uL [facility] Lymphocytes/100 WBC (Bld) 24.7 % [facility] MCH (RBC) [Entitic mass] 30.2 pg 25.9 - 33.9 pg [facility] MCHC (RBC) [Mass/Vol] 33.4 g/dL 31.4 - 35.9 g/dL [facility] MCV (RBC) [Entitic vol] 90.3 fL 79.6 - 97.7 fL [facility] Monocytes (Bld) [#/Vol] 1.01 10*3/uL High 0.22 - 0.87 K/uL [facility] Monocytes/100 WBC (Bld) 7.8 % [facility] Neutrophils (Bld) [#/Vol] 8.42 10*3/uL High 1.64 - 7.28 K/uL [facility] Nucleated RBC/100 WBC (Bld) [Ratio] 0.0 % [facility] Platelet mean volume (Bld) [Entitic vol] 9.0 fL 8.5 - 12.2 fL [facility] Platelets (Bld) [#/Vol] 409 10*3/uL High 150 - 393 K/uL [facility] RBC (Bld) [#/Vol] 4.87 10*6/uL [facility] Segmented neutrophils/100 WBC (Bld) 64.9 % [facility] WBC (Bld) [#/Vol] 12.97 10*3/uL High 3.99 - 11 .19 K/uL [facility] 7 - EDon 01-03-2022 Anion gap [Moles/Vol] 11 mmol/L Normal 7-17 [facility] Comment on above: Performed By: #### Lilia CHARLTON C7ED #### [facility] (DEFAULT) [address] [place] [address] Chloride [Moles/Vol] 100 mmol/L Normal 98-108 [facility] Comment on above: Performed By: #### Lilia CHARLTON C7ED #### [facility] (DEFAULT) [address] [place] [address]70 CO2 [Moles/Vol] 34 mmol/L High 21-31 [facility] Comment on above: Performed By: #### Lilia CHARLTON C7ED #### [facility] (DEFAULT) [address] [place] [address]805 Creatinine [Mass/Vol] 0.91 mg/dL Normal 0.50-1.20 [facility] Comment on above: Performed By: #### Lilia CHARLTON C7ED #### [facility] (DEFAULT) [address] [place] [address] 67051 GFR/1.73 sq M.predicted among non-blacks MDRD (S/P/Bld) [Vol rate/Area] 71 mL/min/{1.73_m2} Normal >=60 [facility] Comment on above: Result Comment: Repo rted eGFR is based on the CKD-EPI 2020 equation using creatinine, age, and sex. Performed By: #### Lilia CHARLTON C7ED #### [facility] (DEFAULT) [address] [place] [address]479 Glucose [Mass/Vol] 113 mg/dL High 70-99 [facility] Comment on above: Performed By: #### Lilia CHARLTON C7ED #### [facility] (DEFAULT) [address] [place] [address]45 Osmolality [Osmolality] 296 mosm/kg Normal 278-305 [facility] Comment on above: Performed By: #### Lilia CHARLTON C7ED #### [facility] (DEFAULT) [address] [place] [address]508 Potassium [Moles/Vol] 2.9 mmol/L Critically low 3.5-5.0 [facility] Comment on above: Result Comment: Repe ated and verified Performed By: #### L ABHSTI1, C7ED #### [facility] (DEFAULT) [address] [place] [address]118 Sodium [Moles/Vol] 142 mmol/L Normal 135-145 [facility] Comment on above: Performed By: #### L ABHSTI1, C7ED #### [facility] (DEFAULT) [address] [place] [address]156 Urea nitrogen [Mass/Vol] 15 mg/dL Normal 7-25 [facility] Comment on above: Performed By: #### L ABHSTI1, C7ED #### [facility] (DEFAULT) [address] [place] [address] 7[address]58 Urea nitrogen/Creatinine [Mass ratio] 16 mg/mg Normal [facility] Comment on above: Performed By: #### L ABMURPHYTI1, C7ED #### [facility] (DEFAULT) [address] [place] [address]77 CHM 7 - EDOrdered By: Tg Johnson on 01-03-2022 Anion gap [Moles/Vol] 11 mmol/L 7 - 17 mmol/L [facility] Chloride [Moles/Vol] 100 mmol/L 98 - 10 8 mmol/L [facility] CO2 [Moles/Vol] 34 mmol/L High 21 - 31 mmol/L [facility] Creatinine [Mass/Vol] 0.91 mg/dL 0.50 - 1.20 mg/dL [facility] GFR/1.73 sq M.predicted CKD-EPI (S/P/Bld) [Vol rate/Area] 71 - PINF [facility] Comment on above: Reported eGFR is bas ed on the CKD-EPI 2020 equation using creatinine, age, and sex. Glucose [Mass/Vol] 113 mg/dL High 70 - 99 mg/dL [facility] Interpretation and review of laboratory results Abnormal [facility] Osmolality Calc [Osmolality] 296 [facility] Potassium [Moles/Vol] 2.9 mmol/L Critically low 3.5 - 5.0 mmol/L [facility] Comment on above: Repeated and verifie d Sodium [Moles/Vol] 142 mmol/L 135 - 145 mmol/L [facility] Urea nitrogen [Mass/Vol] 15 mg/dL 7 - 25 mg/dL [facility] Urea nitrogen/Creatinine [Mass ratio] 16 mg/mg [facility] D-DIMER,QUANTITATIVEon 01-03 Fibrin D-dimer FEU (PPP) [Mass/Vol] NINF [facility] Comment on above: The D-Dimer assay is intended for use in conjuction with a clinical pretest probability (PTP) assessment model to exclude pulmonary embolism (PE) and as an aid in the diagnosis of Deep Vein Thrombosis (DVT) in outpatients suspected of PE or DVT. For the assay in use at [facility] ([facility]), a cutoff of <0.50 mcg/mL has a Negative Predictive Value of 99.7% for exclusion of DVT in low and moderate PTP patients. Interpretation and review of laboratory results Normal [facility] D-Dimer, High Sensitivity <0.27 Normal <0.50 [facility] Comment on above: Result Comment: The D-Dimer assay is intended for use in conjuction with a clinical pretest probability (PTP) assessment model to exclude pulmonary embolism (PE) and as an aid in the diagnosis of Deep Vein Thrombosis (DVT) in outpatients suspected of PE or DVT. For the assay in use at [facility] ([facility]), a cutoff of <0.50 mcg/mL has a Negative Predictive Value of 99.7% for exclusion of DVT in low and moderate PTP patients. Performed By: #### H SDDI #### [facility] (DEFAULT) [address] [place] [address] HIGH SENSITIVITY TROPONIN I - SINGLE ORDERon 01-03-2022 hs-Troponin I 10 ng/L Normal <34 [facility] Comment on above: Order Comment: If hi story of coronary heart disease. Acute Coronary Syndrome (ACS): Initial Evaluation and Management: [email or web address]/Acute% 20Coronary%20Syndrome.[email or web address] Performed By: #### L ABHSTI1, C7ED #### [facility] (DEFAULT) [address] [place] [address] Interpretation and review of laboratory results Normal [facility] Troponin I.cardiac DL <= 0.01 ng/mL [Mass/Vol] 10 ng/L NINF - 34 ng/L [facility] MINT GREEN TOP TUBEon 2021 [facility] XR CHEST PA AND LATERALon XR CHEST [...] Normal IMPRESSION: No acute cardiopulmonary disease Normal [facility] XR Chest PA and Lateralon IMPRESSION: No [...] Normal IMPRESSION IMPRESSION: No acute cardiopulmonary disease [facility] Radiology Study observation (narrative) [facility] XR Chest PA and LateralOrder ed By: Palmira Bautista on 01-03-2022 [facility] Work Phone: SCREENING MAMMOGRAM W/CALIXTO, BILATERAL*on 05-08-2021 [...] VERY IMPORTANT TO YOUR HEALTH. THE CURRENT [employer] GUIDELINES RECOMMENDS ANNUAL MAMMOGRAPHY BEGINNING AT AGE 40 THIS FACILITY USES A REMINDER SYSTEM TO ENSURE ALL PATIENTS RECEIVE REMINDER NOTIFICATIONS AT THE APPROPRIATE TIME BASED ON THE RECOMMENDATIONS OF THIS EXAM. Report reported and signed by Darrius Butler on 05/09/[address] [facility] [employer] Basic Metabolic Panelon 04-22 Anion gap [Moles/Vol] 17 mmol/L Normal 12-20 [facility] Comment on above: Result Comment: Dinae ctive 02/27/2019 reference range changed. Performed By: #### B MP #### [facility] [address] [place], [place] [id number] Calcium [Mass/Vol] 9.1 mg/dL Normal 8.6-10.2 [facility] Comment on above: Performed By: #### B MP #### [facility] [address] [id number] Chloride [Moles/Vol] 104 mmol/L Normal 98-107 [facility] Comment on above: Performed By: #### B MP #### [facility] [place] [id number] CO2 [Moles/Vol] 25 mmol/L Normal 20-31 [facility] Comment on above: Performed By: #### B MP #### [facility] [address] [facility] [place] [id number] Creatinine [Mass/Vol] 0.5 mg/dL Low 0.6-1.4 [facility] Comment on above: Performed By: #### B MP #### [facility] [address] [facility] [id number] eGFRAA 142 mL/min/1.73m2 Normal >60 [facility] Comment on above: Performed By: #### B MP #### [facility] [address] [facility] [place] [id number] eGFRNAA 117 mL/min/1.73m2 Normal >60 [facility] Comment on above: Performed By: #### B MP #### [facility] [address] [facility] [id number] Glucose [Mass/Vol] 105 mg/dL High 65-99 [facility] Comment on above: Result Comment: For FASTING Glucose --- ADA reference ranges: Normal 65-99 mg/dl Prediabetes 100-125 Diabetes >/= 126 Performed By: #### B MP #### [facility] [address] [facility] [id number] Potassium [Moles/Vol] 3.5 mmol/L Normal 3.5-5.5 [facility] Comment on above: Performed By: #### B MP #### [facility] [address] [id number] Sodium [Moles/Vol] 142 mmol/L Normal 135-146 [facility] [employer] Comment on above: Performed By: #### B MP #### [facility] [address] [place], [place] [id number] Urea nitrogen [Mass/Vol] 14 mg/dL Normal 7-25 [facility] Comment on above: Performed By: #### B MP #### [facility] [address] [place], [place] [id number] Complete Blood Count with Au to Diffon 05-06-2021 Basophils (Bld) [#/Vol] 0.04 10*3/uL Normal 0.00-0.20 [facility] Comment on above: Performed By: #### T SH, CBCAD, LIPD #### [facility] [address] [place], [place] [id number] Basophils/100 WBC (Bld) 0.6 % Normal [facility] Comment on above: Performed By: #### T VISHAL, CBCAD, LIPD #### [facility] [address] [place], [place] [id number] Eosinophils (Bld) [#/Vol] 0.22 10*3/uL Normal 0.02-0.50 [facility] Comment on above: Performed By: #### T VISHAL, CBCAD, LIPD #### [facility] [address] [place], [place] [id number] Eosinophils/100 WBC (Bld) 3.2 % Normal [facility] Comment on above: Performed By: #### T SH, CBCAD, LIPD #### [facility] [address] [place], [place] [id number] Erythrocyte distribution width (RBC) [Ratio] 11.5 % Normal 11.0-15.0 [facility] Comment on above: Performed By: #### T SH, CBCAD, LIPD #### [facility] [address] [place], [place] [id number] Hematocrit (Bld) [Volume fraction] 41.6 % Normal 35.0-47.0 [facility] Comment on above: Performed By: #### T SH, CBCAD, LIPD #### [facility] [address] [place], [place] [id number] Hemoglobin (Bld) [Mass/Vol] 13.8 g/dL Normal 11.6-15.5 [facility] Comment on above: Performed By: #### T SH, CBCAD, LIPD #### [facility] [address] [place], [place] [id number] Lymphocytes (Bld) [#/Vol] 1.9 10*3/uL Normal 0.9-3.9 [facility] Comment on above: Performed By: #### T SH, CBCAD, LIPD #### [facility] [address] [place], [place] [id number] Lymphocytes/100 WBC (Bld) 27.1 % Normal [facility] Comment on above: Performed By: #### T SH, CBCAD, LIPD #### [facility] [address] [place], [place] [id number] MCH (RBC) [Entitic mass] 29.9 pg Normal 27.0-33.0 [facility] Comment on above: Performed By: #### T SH, CBCAD, LIPD #### [facility] [address] [place], [place] [id number] MCHC (RBC) [Mass/Vol] 33.2 g/dL Normal 32.0-36.0 [facility] Comment on above: Performed By: #### T SH, CBCAD, LIPD #### [facility] [address] [place], [place] [id number] MCV (RBC) [Entitic vol] 90 fL Normal 80-100 [facility] Comment on above: Performed By: #### T SH, CBCAD, LIPD #### [facility] [address] [place], [place] [id number] Monocytes (Bld) [#/Vol] 0.7 10*3/uL Normal 0.2-0.9 [facility] Comment on above: Performed By: #### T SH, CBCAD, LIPD #### [facility] [address] [place], [place] [id number] Monocytes/100 WBC (Bld) 10.5 % Normal [facility] Comment on above: Performed By: #### T SH, CBCAD, LIPD #### [facility] [address] [place], [place] [id number] Neutrophils (Bld) [#/Vol] 4.1 10*3/uL Normal 1.5-7.8 [facility] Comment on above: Performed By: #### T SH, CBCAD, LIPD #### [facility] [address] [place], [place] [id number] Neutrophils/100 WBC (Bld) 58.3 % Normal [facility] Comment on above: Performed By: #### T SH, CBCAD, LIPD #### [facility] [address] [place], [place] [id number] Platelet mean volume (Bld) [Entitic vol] 9.60 fL Normal 7.50-12.50 [facility] Comment on above: Performed By: #### T SH, CBCAD, LIPD #### [facility] [address] [place], [place] [id number] Platelets (Bld) [#/Vol] 325 10*3/uL Normal 140-400 [facility] Comment on above: Performed By: #### T VISHAL, CBCAD, LIPD #### [facility] [address] [place], [place] [id number] RBC (Bld) [#/Vol] 4.62 10*6/uL Normal 3.90-5.20 [facility] Comment on above: Performed By: #### T VISHAL, CBCAD, LIPD #### [facility] [address] [place], [place] [id number] RDW-SD 37.7 fL Normal 37.0-50.0 [facility] Comment on above: Performed By: #### T VISHAL, CBCAD, LIPD #### [facility] [address] [place], [place] [id number] WBC (Bld) [#/Vol] 7.0 10*3/uL Normal 3.8-11.0 [facility] Comment on above: Performed By: #### T SH, CBCAD, LIPD #### [facility] [address] [place], [place] [id number] Lipid Panelon 05-06-2021 Cholesterol [Mass/Vol] 170 mg/dL Normal 125-200 [facility] Comment on above: Result Comment: Low risk < 200mg/dL Borderline risk 201-239 mg/dl High risk > or equal to 240 Performed By: #### T VISHAL, CBCAD, LIPD #### [facility] [address] [place], [place] [id number] Cholesterol in HDL [Mass/Vol] 44 mg/dL Normal >40 [facility] Comment on above: Result Comment: High Cardiovascular Risk HDL <40 mg/dL Low Cardiovascular Risk HDL > or equal to 60 mg/dl Performed By: #### T VISHAL, CBCAD, LIPD #### [facility] [address] [place], [place] [id number] Cholesterol in LDL [Mass/Vol] 96 mg/dL Normal [facility] Comment on above: Result Comment: LDL ATP III CLASSIFICATION LDL less than 100 mg/dl Optimal LDL 100-129 mg/dl Near or above optimal LDL 130-159 Borderline high LDL 160-189 High LDL greater than 189 mg/dl Very High Performed By: #### T VISHAL, CBCAD, LIPD #### [facility] [address] [place], [place] [id number] Cholesterol in VLDL [Mass/Vol] 30 mg/dL Normal [facility] Comment on above: Performed By: #### T VISHAL, CBCAD, LIPD #### [facility] [address] [place], [place] [id number] Cholesterol.total/Ch olesterol in HDL [Mass ratio] 4 {ratio} Normal [facility] Comment on above: Performed By: #### T VISHAL, CBCAD, LIPD #### [facility] [address] [place], [place] [id number] Triglyceride [Mass/Vol] 150 mg/dL Normal 30-150 [facility] Comment on above: Result Comment: TRIG ATPIII CLASSIFICATIONS TRIG less than 150 mg/dl Normal TRIG 150-199 mg/dl Borderline High TRIG 200-500 mg/dl High TRIG greather than 500 mg/dl Very High Performed By: #### T VISHAL, CBCAD, LIPD #### [facility] [address] [place], [place] [id number] TSHon 05-06-2021 TSH 1.680 uIU/mL Normal 0.400-4.500 [facility] Comment on above: Performed By: #### T VISHAL, CBCAD, LIPD #### [facility] [address] [place], [place] [id number] Comprehensive Metabolic Pane gomez 04-07-2021 Albumin [Mass/Vol] 4.6 g/dL Normal 3.6-5.1 [facility] Comment on above: Performed By: #### C MP, MG #### [facility] [address] [place], [place] [id number] Albumin/Globulin [Mass ratio] 2.3 {ratio} Normal 1.0-2.5 [facility] Comment on above: Performed By: #### C MP, MG #### [facility] [address] [place], [place] [id number] ALP [Catalytic activity/Vol] 77 U/L Normal 35-119 [facility] Comment on above: Performed By: #### C MP, MG #### [facility] [address] [place], [place] [id number] ALT [Catalytic activity/Vol] 16 U/L Normal 6-33 [facility] Comment on above: Result Comment: 01/22 Female reference range changed. Performed By: #### C MP, MG #### [facility] [address] [place], [place] [id number] Anion gap [Moles/Vol] 19 mmol/L Normal 12-20 [facility] Comment on above: Result Comment: Effe ctive 02/27/2019 reference range changed. Performed By: #### C MP, MG #### [facility] [address], [place] [id number] AST [Catalytic activity/Vol] 17 U/L Normal 9-34 [facility] Comment on above: Performed By: #### C MP, MG #### [facility] [address], [place] [id number] Bilirubin [Mass/Vol] 0.61 mg/dL Normal 0.30-1.20 [facility] Comment on above: Performed By: #### C MP, MG #### [facility] [address] [place] [address], [place] [id number] BUN/CREA 22 Ratio Normal 6-22 [facility] Comment on above: Performed By: #### C MP, MG #### [facility] [address] [place] [address], [place] [id number] Calcium [Mass/Vol] 9.5 mg/dL Normal 8.6-10.2 Sofia sandra [place] [facility] Comment on above: Performed By: #### C MP, MG #### [facility] [address], [place] [id number] Chloride [Moles/Vol] 103 mmol/L Normal 98-107 [facility] Comment on above: Performed By: #### C MP, MG #### [facility] [address] [place] [address], [place] [id number] CO2 [Moles/Vol] 26 mmol/L Normal 20-31 [facility] Comment on above: Performed By: #### C MP, MG #### [facility] [address], [place] [id number] Creatinine [Mass/Vol] 0.5 mg/dL Low 0.6-1.4 [facility] Comment on above: Performed By: #### C MP, MG #### [facility] [address], [place] [id number] eGFRAA 145 mL/min/1.73m2 Normal >60 [facility] Comment on above: Performed By: #### C MP, MG #### [facility] [address], [place] [id number] eGFRNAA 119 mL/min/1.73m2 Normal >60 [facility] Comment on above: Performed By: #### C MP, MG #### [facility] [address], [place] [id number] Globulin (S) [Mass/Vol] 2.0 g/dL Normal 1.9-3.7 [facility] Comment on above: Performed By: #### C MP, MG #### [facility] [address], [place] [id number] Glucose [Mass/Vol] 111 mg/dL High 65-99 Sofia sandra [place] [facility] Comment on above: Result Comment: For FASTING Glucose --- ADA reference ranges: Normal 65-99 mg/dl Prediabetes 100-125 Diabetes >/= 126 Performed By: #### C MP, MG #### [facility] [address] [place] [address], [place] [id number] Potassium [Moles/Vol] 3.8 mmol/L Normal 3.5-5.5 [facility] Comment on above: Performed By: #### C MP, MG #### [facility] [address] [place] [address], [place] [id number] Protein [Mass/Vol] 6.6 g/dL Normal 6.1-8.1 Sofia sandra [place] [facility] Comment on above: Performed By: #### C MP, MG #### [facility] [address] [place] [address], [place] [id number] Sodium [Moles/Vol] 143 mmol/L Normal 135-146 Sofia sandra [place] [employer] Comment on above: Performed By: #### C MP, MG #### [facility] [address], [place] [id number] Urea nitrogen [Mass/Vol] 12 mg/dL Normal 7-25 [facility] Comment on above: Performed By: #### C MP, MG #### [facility] [address] [place] [address], [place] [id number] Magnesiumon 04-07-2021 Magnesium [Mass/Vol] 2.1 mg/dL Normal 1.5-2.3 Venancio leihg [place] [facility] Comment on above: Performed By: #### C MP, MG #### [facility] [address] [place], [place] [id number] Vital Signs Date Time Vital Sign Value Performing Clinician Facility 01-03-2024 13:59-0500 Body height 160 cm Ella Fofana BUILDING MANAGER Work Phone: [facility] 01-03-2024 13:59-0500 Body mass index (BMI) [Ratio] 31 kg/m2 Ella Fofana BUILDING MANAGER Work Phone: [facility] 01-03-2024 13:59-0500 Body temperature 98.1 [degF] Ella Fofana BUILDING MANAGER Work Phone: [facility] 01-03-2024 13:59-0500 Body weight 79.38 kg Ella Fofana BUILDING MANAGER Work Phone: [facility] 01-03-2024 13:59-0500 Diastolic blood pressure 78 mm[Hg] Ella Fofana BUILDING MANAGER Work Phone: [facility] 01-03-2024 13:59-0500 Heart rate 80 /min Ella Fofana BUILDING MANAGER Work Phone: [facility] 01-03-2024 13:59-0500 Respiratory rate 18 /min Ella Fofana BUILDING MANAGER Work Phone: [facility] 01-03-2024 13:59-0500 SaO2% (BldA) [Mass fraction] 96 % Ella Fofana BUILDING MANAGER Work Phone: [facility] 01-03-2024 13:59-0500 Systolic blood pressure 140 mm[Hg] Ella Fofana BUILDING MANAGER Work Phone: [facility] 12-30-2023 11:44-0500 Body height 160 cm Francesca Byrd MD Work Phone: [facility] 12-30-2023 11:44-0500 Body mass index (BMI) [Ratio] 31.35 kg/m2 Francesca Byrd MD Work Phone: [facility] 12-30-2023 11:44-0500 Body weight 80.29 kg Francesca Byrd MD Work Phone: [facility] 12-30-2023 11:44-0500 Diastolic blood pressure 76 mm[Hg] Francesca Byrd MD Work Phone: [facility] 12-30-2023 11:44-0500 Heart rate 74 /min Francesca Byrd MD Work Phone: [facility] 12-30-2023 11:44-0500 Respiratory rate 18 /min Francesca Byrd MD Work Phone: [facility] 12-30-2023 11:44-0500 SaO2% (BldA) [Mass fraction] 96 % Francesca Byrd MD Work Phone: [facility] 12-30-2023 11:44-0500 Systolic blood pressure 122 mm[Hg] Francesca Byrd MD Work Phone: [facility] 01-03-2022 14:15-0500 Diastolic blood pressure 58 mm[Hg] Washington Azar MD Work Phone: [facility] 01-03-2022 14:15-0500 Heart rate 74 /min Washington Azar MD Work Phone: [facility] 01-03-2022 14:15-0500 Respiratory rate 18 /min Washington Azar MD Work Phone: [facility] 01-03-2022 14:15-0500 SaO2% (BldA) [Mass fraction] 94 % Washington Azar MD Work Phone: [facility] 01-03-2022 14:15-0500 Systolic blood pressure 115 mm[Hg] Washington Azar MD Work Phone: [facility] 01-03-2022 12:23-0500 Body temperature 98.01 [degF] Washington Azar MD Work Phone: [facility] Encounters Encounter Date Encounter Type Care Provider Facility Start: 01-05-2024 ambulatory [facility] Start: 01-03-2024 End: 01-03-2024 Office outpatient visit 15 minutes Ella Fofana BUILDING MANAGER Work Phone: [facility] Comment on above: Acute bronchitis due to Mycoplasma pneumoniae (Primary Dx) Start: 01-03-2024 End: 01-03-2024 ambulatory ELLA FOFANA Not Available Start: 12-31-2023 End: 12-31-2023 Orders Only Francesca Byrd MD Work Phone: [facility] Comment on above: RJ positive (Primar y Dx) Start: 12-30-2023 End: 12-30-2023 Bamboo flowsheet Francesac Byrd MD Work Phone: [facility] Start: 12-30-2023 End: 12-30-2023 Bamboo flowsheet Francesca Byrd MD Work Phone: [facility] Start: 12-30-2023 End: 12-30-2023 ambulatory FRANCESCA BYRD Not Available Start: 12-30-2023 End: 12-30-2023 Office outpatient visit 25 minutes Francesca Byrd MD Work Phone: [facility] Comment on above: Mouth dryness (Prima ry Dx); Arthralgia, unspecified joint; Weight gain; Routine general medical examination at a health care facility Start: 12-30-2023 End: 12-30-2023 Patient encounter status Francesca Byrd MD Work Phone: [facility] Start: 11-30-2023 ambulatory [facility] Start: 11-15-2023 End: 11-15-2023 ambulatory [facility] Start: 11-15-2023 End: 11-15-2023 Encounter for preprocedural laboratory examination [facility] Start: 11-10-2023 End: 11-10-2023 ambulatory [facility] Start: 11-10-2023 Encounter for preprocedural laboratory examination [facility] Start: 09-29-2023 End: 09-29-2023 ambulatory [facility] Start: 07-23-2023 End: 07-23-2023 ambulatory FRANCESCA BYRD Not Available Start: 07-23-2023 End: 07-23-2023 ambulatory [facility] Start: 07-18-2023 End: 07-19-[address] [facility] Start: 06-28-2023 End: 06-28-2023 ambulatory ELLA R FOFANA Not Available Start: 06-28-2023 End: 06-28-2023 ambulatory ELLA R FOFANA Not Available Start: 05-20-2023 End: 05-20-2023 ambulatory FRANCESCA RUSSER Not Available Start: 05-11-2023 End: 05-11-2023 ambulatory ELLA R FOFANA Not Available Start: 05-04-2023 End: 05-04-2023 ambulatory ELLA R FOFANA Not Available Start: 02-11-2023 End: 02-11-2023 ambulatory FRANCESCA RUSSER Not Available Start: 07-08-2022 ambulatory JIGNA BOYKIN Faci lity:[facility] Start: 06-03-2022 End: 06-04-[address] KWESI MUNOZ Facility:[facility] Start: 05-12-2022 End: 05-13-[address] KWESI MUNOZ Facility:[facility] Start: 04-21-2022 End: 04-22-[address] SIVA HUNTER Facility:[facility] Start: 01-03-2022 End: 01-03-2022 Emergency department patient visit KEYUR NAYAK Facility:[facility] Start: 01-03-2022 End: 01-03-2022 Emergency department patient visit Washington Azar MD Work Phone: [facility] Start: 09-24-2021 End: 09-25-[address] KWESI MUNOZ Facility:[facility] Procedures Date Procedure Procedure Detail Performing Clinician Start: 07-23-2023 Follow-up visit Follow-up PASTOR Sethi CLAUDETTE Start: 05-11-2023 Mammography Francesca Byrd MD Work Phone: Start: 12-07-2022 Colonoscopy Francesca Byrd MD Work Phone: Start: 01-03-2022 Radiologic exam ches t 2 [...] Treatment Date Care Activity Detail Author Start: 12-07-2032 Screening for malign ant neoplasm of colon [facility] Start: 07-17-2027 Screening for malign ant neoplasm of cervix [facility] Start: 08-21-2024 Influenza vaccination Influenza Vacc ine (#1) [facility] Comment on above: Postponed from 10/23 (Patient Refused) Start: 05-10-2024 Screening for malign ant neoplasm of breast Mammogram [facility] Start: 12-30-2023 End: 12-29-2024 CBC W Auto Differential panel - Blood CBC and differential Lab Routine Mouth dryness Arthralgia, unspecified joint Expected: 12/30/2023 (Approximate), Expires: 12/29/2024 [facility] Comment on above: Expected: 12/30/2023 (Approximate), Expires: 12/29/2024 Start: 12-30-2023 End: 12-29-2024 Comprehensive metabolic 2000 panel - Serum or Plasma Comprehensive metabolic panel Lab Routine Mouth dryness Arthralgia, unspecified joint Expected: 12/30/2023, Expires: 12/29/2024 [facility] Comment on above: Expected: 12/30/2023 , Expires: 12/29/2024 Start: 12-30-2023 End: 12-29-2024 Erythrocyte sedimentation rate Sedimentation rate, automated Lab Routine Mouth dryness Arthralgia, unspecified joint Expected: 12/30/2023 (Approximate), Expires: 12/29/2024 [facility] Work Phone: Comment on above: Expected: 12/30/2023 (Approximate), Expires: 12/29/2024 Start: 12-30-2023 End: 12-29-2024 Hemoglobin A1c/Hemoglobin.total in Blood Hemoglobin A1c Lab Routine Mouth dryness Arthralgia, unspecified joint Expected: 12/30/2023 (Approximate), Expires: 12/29/2024 [facility] Comment on above: Expected: 12/30/2023 (Approximate), Expires: 12/29/2024 Start: 12-30-2023 End: 12-29-2024 Lipid 1996 panel - Serum or Plasma Lipid panel Lab Routine Weight gain Routine general medical examination at a health care facility Expected: 12/30/2023 (Approximate), Expires: 12/29/2024 [facility] Comment on above: Expected: 12/30/2023 (Approximate), Expires: 12/29/2024 Start: 12-30-2023 End: 12-29-2024 Nuclear Ab [Titer] in Serum by Immunofluorescence RJ Lab Routine Mouth dryness Arthralgia, unspecified joint Expected: 12/30/2023 (Approximate), Expires: 12/29/2024 [facility] Comment on above: Expected: 12/30/2023 (Approximate), Expires: 12/29/2024 Start: 12-30-2023 End: 12-29-2024 Rheumatoid factor [Units/volume] in Serum or Plasma Rheumatoid factor Lab Routine Mouth dryness Arthralgia, unspecified joint Expected: 12/30/2023 (Approximate), Expires: 12/29/2024 [facility] Comment on above: Expected: 12/30/2023 (Approximate), Expires: 12/29/2024 Start: 12-30-2023 End: 12-29-2024 TSH W/REFLEX TO FT4 TSH W/REFLEX TO FT4 Lab Routine Mouth dryness Arthralgia, unspecified joint Weight gain Expected: 12/30/2023 (Approximate), Expires: 12/29/2024 [facility] Comment on above: Expected: 12/30/2023 (Approximate), Expires: 12/29/2024 Start: 10-24-2023 Influenza vaccination Influenza Vacc ine (#1) [facility] Start: 10-23-2021 Influenza vaccination INFLUENZA VACC INE (#1) [facility] Start: 2009 Zoster vaccine hzv l saad for subcutaneous use ZOSTER (SHINGLES) VACCINE (1 of 2) [facility] Start: 2004 Screening for malign ant neoplasm of colon COLORECTAL CANCER SCREENING DISCUSSION [facility] Start: 1999 Lipid panel LIPID SCREENING [facility] Start: 1999 Screening for malign ant neoplasm of breast MAMMOGRAM SCREENING DISCUSSION [facility] Start: 1980 Screening for malign ant neoplasm of cervix [facility] Start: 1978 Third diphtheria, te tanus and acellular pertussis (DTaP) vaccination TDAP (ADULT) [facility] Start: 1977 Tetanus vaccination TETANUS [facility] Start: 1974 HIV screening HIV SCREENING DISCUSSION [facility] Start: 1959 COVID-19 VACCINE (#1) COVID-19 VACCI NE (#1) [facility] Start: 1959 Hepatitis C screening HEPATITI S C VIRUS SCREENING [facility] Start: 1959 Screening for malign ant neoplasm of colon [facility] GOLD TOP TUBE GOLD TOP TUBE La b STAT 01/03/2022 12:37 PM EST [facility] LAVENDER TOP TUBE LAVENDER TOP T UBE Lab STAT 01/03/2022 12:37 PM EST [facility] LT BLUE TOP TUBE LT BLUE TOP TUB E Lab STAT 01/03/2022 12:37 PM EST [facility] RAINBOW DRAW RAINBOW DRAW Lab STAT 01/03/2022 12:37 PM EST [facility] End: 01-03-2022 Standard ECG [facility] Comment on above: One Time for 1 Occur rences starting 01/03/2022 until 01/03/2022 Immunizations Immunization Date Immunization Notes Care Provider Fa cosme 06-13-2013 tetanus toxoid, redu shelli diphtheria toxoid, and acellular pertussis vaccine, adsorbed Francesca Byrd MD Work Phone: [facility] 12-27-2009 seasonal influenza, intradermal, preservative free Francesca Byrd MD Work Phone: [facility] 12-27-2009 influenza virus vacc ine, unspecified formulation Francesca Byrd MD Work Phone: [facility] Payers Date Payer Category Payer [facility] [id number] 2014 Unknown [employer] PPO POS [id number] 2014-Present [address] [place] [address] [id number] 1959 Unknown [id number] [id number] 9.2.594 1959 Unknown [id number] 2.16.840.1.901443.3.57 9.2.593 1959 Unknown [id number] 2.16.840.1.890341.3.57 9.2.593 1959 Unknown [id number] 2.16.840.1.667708.3.57 9.2.593 1959 Unknown [id number] 2.16.840.1.548385.3.57 9.2.593 1959 Unknown [id number] 2.16.840.1.915825.3.57 9.2.593 1959 Unknown [id number] 2.16.840.1.915349.3.57 9.2.1286 1959 Unknown [id number] 2.16.840.1.710857.3.57 9.2.1286 1959 Unknown [id number] 2.16.840.1.366530.3.57 9.2.1286 1959 Unknown [id number] 2.16.840.1.071452.3.57 9.2.1286 1959 Unknown [id number] 2.16.840.1.215282.3.57 9.2.1259 1959 Unknown [id number] 2.16.840.1.645056.3.57 9.2.1259 1959 Unknown [id number] 2.16.840.1.976586.3.57 9.2.1259 1959 Unknown [id number] 2.16.840.1.350448.3.57 9.2.1259 1959 Unknown [id number] 2.16.840.1.427676.3.57 9.2.1259 1959 Unknown [id number] 2.16.840.1.721083.3.57 9.2.1259 1959 Unknown [id number] 2.16.840.1.763226.3.57 9.2.1259 1959 Unknown [id number] 2.16.840.1.108942.3.57 9.2.1259 1959 Unknown [id number] 2.16.840.1.420929.3.57 9.2.1259 1959 Unknown [id number] Social History Date Type Detail [facility] Start: 1960 Sex Assigned At Not on file [facility] Start: 07-16-2022 Tobacco smoking status SCIS Never smoked tobacco [facility] Start: 07-16-2022 Tobacco use and exposure Smokeless tobacco non-user [facility] Start: 07-23-2023 End: 01-03-2024 Alcoholic beverage intake Ex-drinker (finding) [facility] Start: 06-28-2023 End: 01-03-2024 History of Social function [facility] Start: 06-28-2023 End: 01-03-2024 Alcohol Use Disorder Identification Test - Consumption [AUDIT-C] [facility] How often to you hav e a drink containing alcohol? Never [facility] How many standard dr inks containing alcohol do you have on a typical day? Patient does not drink [facility] (I/We) worried [facility] (my/our) food would run out before (I/we) got money to buy more. Never true [facility] In the past 12 month s, was there a time when you were not able to pay the mortgage or rent on time? No [facility] Clinical Notes 09-25-2021 to 01-05-2024 Ella Fofana NP - 01/03/2024 2:00 PM Gabe Byrd MD - 12/30/2023 11:40 AM FELICITAS Salazar - 01/03/2022 4:04 PM FELICITAS Salazar - 01/03/2022 4:04 PM ESTDischarge Instructions Note Date & Type Note Facility 01-05-2024 Note Patient ID: Claudia blevins is a 63 y.o. female. Small Joint: L thumb CMC on 01/05/2024 9:42 PM Indications: pain (Arthritis at the carpometacarpal joint of the thumb) Details: 30 G needle, lateral approach Medications: 0.5 mL triamcinolone acetonide (Kenalog-10) 10 mg/mL; 0.5 mL lidocaine (PF) 10 mg/mL (1 %) Outcome: tolerated well, no immediate complications In the clinic today, the benefits, risks and potential side effects of the injection were discussed, and verbal consent was given. The left thumb CMC joint was prepped with a Betadine swab. Using a TB syringe, the joint was injected with 0.5 mL of 1% lidocaine and 0.5 mL of Kenalog 10 mg/mL. After the injection, the site was cleaned with an alcohol swab and dressed with a Band-Aid. The patient was instructed to ice the site for 10 minutes later today and take anti-inflammatory medication if needed for discomfort. Procedure, treatment alternatives, risks and benefits explained, specific risks discussed. Consent was given by the patient. Immediately prior to procedure a time out was called to verify the correct patient, procedure, equipment, application support intern and site/side marked as required. Procedure Attestation Level of Attending Supervision for Procedure I was present for the mcintyre and critical portions and I was otherwise immediately available to assist [facility] 01-05-2024 Note Orthopedic Surgery Subjective 11/15/2023 - Burtons Arthroplasty - Right 01/05/24 Patient presents today for her second postoperative visit. She is s/p Dubon's arthroplasty on the right. Patient states that she still having some pain with any motion that requires pincher surveying or spatial science technician and twisting such as turning the keys in her car. She states that she was wearing the CMC wrap however she noticed that it started to irritate the skin of her right hand so she stopped wearing it. Patient was planning on getting her left also surgically done for CMC arthritis but wanted to discuss possibly delaying that until her right is fully healed. She would like to discuss possibly getting a corticosteroid injection today. She denies fever/chills, nausea/vomiting or other constitutional symptoms. 11/30/2023 Claudia Pittman is a 63 y.o. female 51 days s/p Burtons Arthroplasty - Right. Today she is doing well and has no unexpected complaints. Denies fevers, chills and other constitutional symptoms. Denies drainage from incision. Reports mild pain around CMC joint. Reports tylenol helps her pain. Overall doing well. Patient has been NWB right upper extremity. Patient has been immobilized in a short arm splint. Patient has not started physical therapy. History Past Surgical History: Procedure Laterality Date CARDIAC CATHETERIZATION 02/07/2020 SECTION, LOW TRANSVERSE COLONOSCOPY HERNIA REPAIR TONSILLECTOMY UPPER GASTROINTESTINAL ENDOSCOPY Past Medical History: Diagnosis Date Adrenal hemorrhage ([facility]/HCC) 07/18/2023 due to fall, discharged from [facility]. followed up with PCP on 07/23/23 at [facility] Chronic allergic rhinitis Family history of sarcoidosis Hyperlipidemia Hypertension Paroxysmal supraventricular tachycardia ([facility]) Shortness of breath Sleep apnea Uncomplicated severe persistent asthma undercontrolled Objective Right upper extremity exam: -Incision is well-healed. No drainage or erythema. -Patient is able to oppose her thumb to her index long and ring fingers patient is about 1 cm from full opposition to her small finger as well. Patient has reasonable and expected range of motion postoperatively. - Sensation grossly intact distally - Brisk capillary refill Left UE/Hand: Inspection- no swelling, no deformity or contracture, supple skin with no lesions Tender to palpation left CMC joint, otherwise non-tender ROM: Strength: surveying or spatial science technician 5/5, thumb 5/5, interossei 5/5. wrist extension/flexion 5/5 Sensation: intact over median, ulnar, and radial nerve distributions Patient has some pain through the range of motion of the left thumb but otherwise has full and painless range of motion of remainder of digits. Positive Grind Test Cardiovascular: Well-perfused digits Imaging No imaging performed at this visit. Procedure Note Consent was obtained from the patient prior to beginning the procedure. The skin was prepped using prep: betadine, and a 27 gauge needle was then used to inject the left hand first CMC joint with the medications listed below. The needle was removed and a clean bandage was applied. Patient tolerated the procedure well and there were no complications. 0.5 10mg/mL Kenalog with 0.5 Lidocaine 1% Assessment/Plan Claudia Pittman is a 63 y.o. female with bilateral CMC arthritis s/p Burtons Arthroplasty - Right (11/15/2023) discussed patient's clinical findings in detail and answered all questions. Patient is healing appropriately postoperatively We discussed the risk, benefits and alternatives to corticosteroid injection of the left CMC in detail and answered all questions. After discussion patient demonstrated good understanding opted to proceed with the injection today -Verbal consent obtained -Injection administered to the left CMC joint without complication. -Patient to continue scar massage daily as previously discussed -Continue to use right hand for activities as tolerated -Referral given for occupational therapy to help with home exercises for the patient's right hand. -Patient to follow-up in 6 weeks time Mark Anthony Grossman MD Orthopaedic Surgery PGY-3 01/05/24 2:49 PM By using the attestations below, the signing clinician agrees that I have read and verify that the documentation has been personally reviewed by me and ensure that the documentation accurately reflects the encounter. GC: I personally saw this patient on the day of the encounter, performed the mcintyre portion(s) of the service and participated in the management and confirm the resident's documentation. Please note there may be an additional personal documentation from me. [facility] 01-03-2024 History of Present illness Narrative Images from the original note were not included. Claudia Pittman is a 63 y.o. female presents with chief complaint of Sore Throat HPI: Upper Respiratory Infection Patient complains of symptoms of a URI. Symptoms include achiness, congestion, productive cough with yellow colored sputum, shortness of breath, sore throat, and wheezing. Onset of symptoms was 4 days ago, and has been gradually worsening since that time. Treatment to date: decongestants. Sore Throat Associated symptoms include congestion, coughing and shortness of breath. SUBJECTIVE: MEDICATIONS: ALLERGIES Current Outpatient Medications Medication Instructions acetaminophen (TYLENOL) 1,000 mg, 4 times daily albuterol HFA (ProAir HFA) 90 mcg/act inhaler 2 puffs, Inhalation, Every 4 hours PRN aspirin 81 mg, Oral, Daily calcium carbonate (Os-Tarik) 1250 (500 Ca) MG chewable tablet 1 tablet, Daily cholecalciferol (Vitamin D3) 500 Unit split tablet Daily omeprazole (PriLOSEC) [address] capsule TAKE 1 CAPSULE (40 MG TOTAL) BY MOUTH IN THE MORNING rosuvastatin (CRESTOR) 10 mg, Oral, Daily tiZANidine (ZANAFLEX) 4 mg, Every 6 hours PRN Trelegy Ellipta 200-62.5-25 MCG/ACT aerosol powder INHALE 1 PUFF BY MOUTH AND INTO THE LUNGS IN THE MORNING Allergies Allergen Reactions Penicillins Hives Other reaction(s): Intolerance-unknown PAST MEDICAL HISTORY: SOCIAL HISTORY SURGICAL HISTORY: History reviewed. No pertinent past medical history. Social History Tobacco Use Smoking status: Never Smokeless tobacco: Never Substance Use Topics Alcohol use: Not Currently Drug use: Never Past Surgical History: Procedure Laterality Date CT ANGIOGRAM HEART CORONARY 04/04/2021 CT ANGIOGRAM TAVR 04/04/2021 REVIEW OF SYMPTOMS: Review of Systems Constitutional: Negative. HENT: Positive for congestion and sore throat. Eyes: Negative. Respiratory: Positive for cough and shortness of breath. Cardiovascular: Negative. Gastrointestinal: Negative. Genitourinary: Negative. Musculoskeletal: Negative. Skin: Negative. Neurological: Negative. Psychiatric/Behavioral: Negative. All other systems reviewed and are negative. Hematological: Negative. Endocrine: Negative. Allergic/Immunologic: Negative. OBJECTIVE: Vitals: 01/03/24 1359 BP: 140/78 Pulse: 80 Resp: 18 Temp: 98.1 F SpO2: 96% Physical Exam Vitals and nursing note reviewed. Constitutional: Appearance: Normal appearance. HENT: Head: Normocephalic and atraumatic. Right Ear: Tympanic membrane normal. Left Ear: Tympanic membrane normal. Nose: Nose normal. Mouth/Throat: Mouth: Mucous membranes are moist. Pharynx: Oropharynx is clear. Eyes: Pupils: Pupils are equal, round, and reactive to light. Cardiovascular: Rate and Rhythm: Normal rate and regular rhythm. Heart sounds: Normal heart sounds. Pulmonary: Effort: Pulmonary effort is normal. Breath sounds: Normal breath sounds. Comments: Hacky cough Abdominal: General: Bowel sounds are normal. Palpations: Abdomen is soft. Musculoskeletal: General: Normal range of motion. Cervical back: Normal range of motion. Skin: General: Skin is warm and dry. Neurological: General: No focal deficit present. Mental Status: She is alert. Psychiatric: Mood and Affect: Mood normal. ASSESSMENT AND PLAN: Assessment/Plan Diagnoses and all orders for this visit: Acute bronchitis due to Mycoplasma pneumoniae - azithromycin (Zithromax) 250 MG tablet; Take 2 today then one daily until gone Will cover due to repeatative exposures to illness in the family use rescue inhaler as needed. Fluids rest. FU if not improved No follow-ups on file. documented in this encounter [facility] 12-30-2023 History of Present illness Narrative Claudia Pittman is a 63 y.o. female presents with chief complaint of Mouth Issue (Patient presents today for mouth issue. Patient states that her tongue feels like it is burning. ) HPI: HPI History of Present Illness The patient is a 63-year-old female who presents for evaluation of multiple medical concerns. She reports experiencing pain on the sides of her mouth, which she attributes to her dentures and two implants. Despite not changing her diet or drink intake, she experiences a burning sensation in her mouth. This discomfort is alleviated when she drinks water but returns shortly after. She also suffers from dry mouth at night and has been using a gum rinse, which she finds unhelpful. She describes her mouth as inflamed and dry, with a joshua feeling. Additionally, she notes that any sores or scratches take a long time to heal. She mentions an allergy affecting her feet and suspects an autoimmune issue. She expresses a desire to have her A1c levels checked. She recalls a glucose test conducted on the morning of her surgery, which showed high sugar levels. She admits to consuming a lot of sugar and tries to include protein in her diet. She also mentions a weight loss issue and has been fasting since the previous night. She has mild joint pains and had surgery on her thumb. 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 Part of her job involves twisting something off a machine, which exacerbates the pain. She fell last spring and injured her adrenal gland, which was bleeding. SUBJECTIVE: MEDICATIONS: Current Outpatient Medications Medication Instructions acetaminophen (TYLENOL) 1,000 mg, 4 times daily albuterol HFA (ProAir HFA) 90 mcg/act inhaler 2 puffs, Inhalation, Every 4 hours PRN aspirin 81 mg, Oral, Daily calcium carbonate (Os-Tarik) 1250 (500 Ca) MG chewable tablet 1 tablet, Daily cholecalciferol (Vitamin D3) 500 Unit split tablet Daily omeprazole (PriLOSEC) [address] capsule TAKE 1 CAPSULE (40 MG TOTAL) BY MOUTH IN THE MORNING rosuvastatin (CRESTOR) 10 mg, Oral, Daily tiZANidine (ZANAFLEX) 4 mg, Every 6 hours PRN Trelegy Ellipta 200-62.5-25 MCG/ACT aerosol powder INHALE 1 PUFF BY MOUTH AND INTO THE LUNGS IN THE MORNING ALLERGIES: Allergies Allergen Reactions Penicillins Hives Other reaction(s): Intolerance-unknown SURGICAL HISTORY: Past Surgical History: Procedure Laterality Date CT ANGIOGRAM HEART CORONARY 04/04/2021 CT ANGIOGRAM TAVR 04/04/2021 FAMILY HISTORY: No family history on file. SOCIAL HISTORY: Social History Tobacco Use Smoking status: Never Smokeless tobacco: Never Substance Use Topics Alcohol use: Not Currently Drug use: Never Depression: Not at risk (11/30/2023) Received from [facility] PHQ-2 Patient Health Questionnaire-2 Score: 0 REVIEW OF SYMPTOMS: Review of Systems Respiratory: Negative. Cardiovascular: Negative. OBJECTIVE: Visit Vitals BP 122/76 (BP Location: Left arm, Patient Position: Sitting, BP Cuff Size: Adult) Pulse 74 Resp 18 Ht 5' 3 Wt 177 lb SpO2 96% BMI 31.35 kg/m OB Status Postmenopausal Smoking Status Never BSA 1.89 m Physical Exam Constitutional: Appearance: Normal appearance. She is normal weight. HENT: Head: Normocephalic and atraumatic. Nose: Nose normal. Mouth/Throat: Mouth: Mucous membranes are moist. Eyes: Pupils: Pupils are equal, round, and reactive to light. Cardiovascular: Rate and Rhythm: Normal rate and regular rhythm. Heart sounds: No murmur heard. Pulmonary: Effort: Pulmonary effort is normal. Breath sounds: Normal breath sounds. No wheezing or rhonchi. Musculoskeletal: General: No swelling. Cervical back: Normal range of motion and neck supple. Right lower leg: No edema. Left lower leg: No edema. Skin: General: Skin is warm and dry. Findings: No rash. Neurological: Mental Status: She is alert and oriented to person, place, and time. Sensory: No sensory deficit. Gait: Gait normal. Psychiatric: Mood and Affect: Mood normal. Thought Content: Thought content normal. Judgment: Judgment normal. ASSESSMENT AND PLAN: Assessment/Plan Problem List Items Addressed This Visit None Visit Diagnoses Mouth dryness - Primary Relevant Orders Sedimentation rate, automated RJ Rheumatoid factor Comprehensive metabolic panel Hemoglobin A1c CBC and differential TSH W/REFLEX TO FT4 Arthralgia, unspecified joint Relevant Orders Sedimentation rate, automated RJ Rheumatoid factor Comprehensive metabolic panel Hemoglobin A1c CBC and differential TSH W/REFLEX TO FT4 Weight gain Relevant Orders TSH W/REFLEX TO FT4 Lipid panel Routine general medical examination at a health care facility Relevant Orders Lipid panel Assessment & Plan 1. Oral discomfort. Sjogren's syndrome is a potential cause of her oral difficulties. Diabetes could also be a contributing factor, leading to dry mouth and increased susceptibility to thrush. A test for autoimmune diseases will be conducted. Blood work will be ordered to check her A1c, thyroid, and cholesterol levels. 2. Weight management. She was advised to maintain a healthy diet and regular exercise regimen. A reduction in sugar intake was recommended. The use of semaglutide for weight loss was discussed. It was noted that compounded versions of semaglutide are available at a cost of approximately $250 per month. The potential benefits and risks of compounded medications were discussed. documented in this encounter [facility] 11-30-2023 Note Orthopedic Surgery Subjective 11/15/2023 - Burtons Arthroplasty - Right 11/30/23 Claudia Pittman is a 63 y.o. female 15 days s/p Burtons Arthroplasty - Right. Today she is doing well and has no unexpected complaints. Denies fevers, chills and other constitutional symptoms. Denies drainage from incision. Reports mild pain around CMC joint. Reports tylenol helps her pain. Overall doing well. Patient has been NWB right upper extremity. Patient has been immobilized in a short arm splint. Patient has not started physical therapy. Patient History Past Surgical History: Procedure Laterality Date CARDIAC CATHETERIZATION 02/07/2020 SECTION, LOW TRANSVERSE COLONOSCOPY HERNIA REPAIR TONSILLECTOMY UPPER GASTROINTESTINAL ENDOSCOPY Past Medical History: Diagnosis Date Adrenal hemorrhage (CMS/HCC) 07/18/2023 due to fall, discharged from [facility]. followed up with PCP on 07/23/23 at [facility] Chronic allergic rhinitis Family history of sarcoidosis Hyperlipidemia Hypertension Paroxysmal supraventricular tachycardia (CMS/HCC) Shortness of breath Sleep apnea Uncomplicated severe persistent asthma undercontrolled Objective Exam: - Incision clean, dry, and intact. No drainage or erythema. Sutures removed - Reasonable post-surgical ROM, swelling, and tenderness - Sensation grossly intact distally - Brisk capillary refill Imaging No imaging performed at this visit. Assessment/Plan Claudia Pittman is a 63 y.o. female s/p Burtons Arthroplasty - Right (11/15/2023) doing well post operatively. - Discussed for patient to massage scars out of her brace for a few minutes everyday and to apply skin lotion afterwards. - Discussed use of home stretching of thumb webspace and motion a few times a day. - Transition to right CMC wrap. Patient can take off the brace when she is resting at home and taking a shower. -Follow up in 4 weeks Patient agreed and was satisfied with plan. Lissy Lewis MS3 Orthopaedic Surgery Medical Student 11/30/23 4:31 PM I was physically present with the medical student. I have personally performed (or re-performed) the physical exam and medical decision making for the patient. I personally verified the medical student's documentation. I made pertinent changes as necessary to ensure accurate documentation. Additional Notes/Findings: She is doing well, agree with above plan [facility] 11-15-2023 Note Patient: Claudia Pittman Procedure Summary Date: 11/15/23 Room / Location: [facility] OR [address] [place] [address] OR Anesthesia Start: 725 Anesthesia Stop: 830 Procedure: BURTONS ARTHROPLASTY (Right: Thumb) Diagnosis: Pain in both hands (Pain in both hands [M79.641, M79.642]) Surgeons: Len Villarreal MD Responsible Provider: Adin Gamboa MD Anesthesia Type: regional ASA Status: 2 Anesthesia Type: regional Vitals Value Taken Time BP 143/70 11/15/23825 Temp 36.6 ???C (97.9 ???F) 11/15/23825 Pulse 62 11/15/23825 Resp 16 11/15/23825 SpO2 96 % 11/15/23825 Anesthesia Post Evaluation Patient location during evaluation: PACU Patient participation: complete - patient participated Level of consciousness: awake Pain score: 1 Pain management: adequate Airway patency: patent Cardiovascular status: acceptable Respiratory status: acceptable Patient is hemodynamically stable and is able to be discharged from PACU per anesthesia protocol. There were no known notable events for this encounter. [facility] 11-15-2023 Note Patient: Claudia Pittman Procedure Summary Date: 11/15/23 Room / Location: [address] OR Anesthesia Start: 725 Anesthesia Stop: Procedure: BURTONS ARTHROPLASTY (Right: Thumb) Diagnosis: Pain in both hands (Pain in both hands [M79.641, M79.642]) Surgeons: Len Villarreal MD Responsible Provider: Adin Gamboa MD Anesthesia Type: regional ASA Status: 2 Anesthesia Post Transport Note Transport to: PACU O2 Route: room air Patient Monitor: direct observation Transport: uneventful Patient condition is: stable [facility] 11-15-2023 Note Peripheral Block Patient location during procedure: pre-op Start time: 11/15/2023 7:12 AM End time: 11/15/2023 7:27 AM Reason for block: primary anesthetic Staffing Performed: resident/ACCOUNT COORDINATOR/CAA Anesthesiologist: Adin Gamboa MD Resident/ACCOUNT COORDINATOR: Darlyn Zarate MD Preanesthetic Checklist Completed: patient identified, IV checked, site marked, risks and benefits discussed, surgical consent, monitors and equipment checked, pre-op evaluation and timeout performed Peripheral Block Patient position: sitting Prep: ChloraPrep Patient monitoring: heart rate and continuous pulse ox Block type: interscalene brachial plexus Laterality: right Injection technique: single-shot Guidance: ultrasound guided Needle Needle type: short-bevel Needle gauge: 21 G Needle length: 2 in Needle localization: ultrasound guidance Medications Administered midazolam (VERSED) IV - intravenous 2 mg - 11/15/2023 7:12:00 AM fentaNYL (SUBLIMAZE) IV - intravenous 50 mcg - 11/15/2023 7:12:00 AM Assessment Injection assessment: negative aspiration for heme, no paresthesia on injection, incremental injection and local visualized surrounding nerve on ultrasound Paresthesia pain: none Heart rate change: no Slow fractionated injection: yes [facility] 11-15-2023 Note Patient: Claudia Pittman Procedure Information Date/Time: 11/15/23729 Procedure: BURTONS ARTHROPLASTY (Left: Thumb) Location: [facility] OR [address] [place] [address] OR Surgeons: Len Villarreal MD Relevant Problems Anesthesia (within normal limits) Cardio H/o chest pain in 2019, underwent cardiac cath, apparently non obstructive CAD. No recent chest pain/SOB Endo (within normal limits) /Renal (within normal limits) Neuro/Psych (within normal limits) Pulmonary Asthma Clinical information reviewed: Tobacco Allergies Meds Med Hx Surg Hx Physical Exam Airway Mallampati: II TM distance: >3 FB Neck ROM: full Cardiovascular - normal exam Dental (+) upper dentures, lower dentures Pulmonary - normal exam Abdominal Anesthesia Plan ASA 2 regional The patient is not a current smoker. Patient was not previously instructed to abstain from smoking on day of procedure. Patient did not smoke on day of procedure. intravenous induction Anesthetic plan and risks discussed with patient. Plan discussed with CAA. Additional Equipment Requests [facility] 09-29-2023 Note Orthopedic Surgery Subjective Pain and New Patient of the Left Hand and Pain and New Patient of the Right Hand 09/29/23 Claudia Pittman is a 63 y.o. female presenting for evaluation of bilateral hand pain. The patient is RHD. She has had pain with gripping objects in her bilateral thumbs for about a year at this time. She feels the left side feels more bothersome than the right side. She has been using a wrap brace and tylenol with minimal relief of her pain. She denies numbness or tingling to the fingers and has not had catching or locking. She denies any trauma prior to the pain starting. Patient History No past surgical history on file. No past medical history on file. Objective General: Body mass index is 30.11 kg/m???. No acute distress, comfortable Respiratory: Unlabored breathing with normal rate, no cough Cardiovascular: Warm well perfused extremities Psych: Appropriate mood behavior Right Hand: Inspection- no ecchymosis, no erythema, no deformity Tender to palpation over base of the thumb + CMC grind Strength: surveying or spatial science technician 5/5, thumb 5/5, interossei 5/5 Sensation: intact over median, ulnar, and radial nerve distributions Cardiovascular: Well-perfused digits Left Hand: Inspection- no ecchymosis, no erythema, no deformity Tender to palpation over base of the thumb + CMC grind Strength: surveying or spatial science technician 5/5, thumb 5/5, interossei 5/5 Sensation: intact over median, ulnar, and radial nerve distributions Cardiovascular: Well-perfused digits Imaging Xray of the left hand obtained in clinic today and interpreted by me notable for moderate arthritis of the thumb CMC joint. Xray of the right hand obtained in clinic today and interpreted by me notable for moderate arthritis of the thumb CMC joint. Assessment/Plan Claudia Pittman is a 63 y.o. 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 Injection vs. Surgical intervention -The patient elected to proceed with Lilia Dubon's arthroplasty NILSON WESLEY MD Orthopedic Surgery, PGY-3 Ortho Pager [phone] 09/29/23 4:11 PM By using the attestations below, the signing clinician agrees that I have read and verify that the documentation has been personally reviewed by me and ensure that the documentation accurately reflects the encounter. GC: I personally saw this patient on the day of the encounter, performed the mcintyre portion(s) of the service and participated in the management and confirm the resident's documentation. Please note there may be an additional personal documentation from me. [facility] 06-03-2022 Note PROCEDURE: XR FOOT R T [...] authenticated by: KWESI MUNOZ Date: 2022-06-03 16:12 [facility] 05-12-2022 Note PROCEDURE: XR FOOT R [...] authenticated by: KWESI MUNOZ Date: 2022-05-12 12:34 [facility] 04-21-2022 Note PROCEDURE: XR FOOT R T MIN 3 VIEWS COMPARISON: 09/24/2021 HISTORY: Pain in right foot FINDINGS: BONES:No acute fracture or dislocation. Moderate plantar enthesopathic spurring at the Achilles insertion SOFT TISSUES:Negative. No visible soft tissue swelling. EFFUSION:None visible. OTHER: Negative. IMPRESSION: No acute abnormality Electronically authenticated by: SIVA HUNTER Date: 2022-04-21 17:22 [facility] 01-03-2022 Emergency department Note Reason for Consult: Transportation Consulted By: Nurse ANA contacted by Nurse (Aaliyah) requesting assistance with transportation of patient and her from [facility] to parking lot where their vehicle was left prior to the game ([address] [place], [place]). Patient has no other means to get to their vehicle. ANA requested a Lyft for patient and her as patient was ready for discharge. YAO Smith LSW Medical Social Work [facility] 01-03-2022 Emergency department Note Reason for Consult: Transportation Consulted By: Nurse ANA contacted by Nurse (Aaliyah) requesting assistance with transportation of patient and her from [facility] to parking lot where their vehicle was left prior to the game ([address] [place], [place]). Patient has no other means to get to their vehicle. ANA requested a Lyft for patient and her as patient was ready for discharge. YAO Smith LSW Medical Social Work ED Staffing Note Chief complaint: Chief Complaint Patient presents with JENNY Pittman is a 61 y.o. year old female [...] with the resident. Washington Azar MD 01/03/22 5589 dEPARTMENT of Emergency Medicine CHIEF COMPLAINT URI HPI Claudia Pittman is a 61 y.o. female with past [...] years and she has upcoming appointment with system administrator. States she walked up a flight of [...] for details) Medication list reviewed. Assessment: Claudia Pittman is a 61 y.o. female with past [...] rest. Patient has follow up appointment with system administrator next week. Appropriate return precautions given and all questions answered. Impression: SOB, neck pain Disposition: Discharge Opal Rahman MD Emergency Medicine, PGY-2 Opal Rahman MD Resident 01/03/22 1550 Pt presents to the ED with SOB and neck pain. Pt was recently diagnosed with a URI. Given a z pack that she fimished yesterday. Was at the [employer] game when she started having SOB and neck pain. Neck pain has since stopped. 95% on RA. documented in this encounter [facility] 01-03-2022 Hospital Discharge instructions Opal Rahman MD - 01/03/2022 3:45 PM EST Ms. Pittman, You were seen in the ED today [...] ED for re-evaluation. documented in this encounter [facility] 01-03-2022 Physician Emergency department Note ED Staffing Note Chief complaint: Chief Complaint Patient presents with URI Claduia Pittman is a 61 y.o. year old female [...] with the resident. Washington Azar MD 01/03/22 0002 [facility] Work Phone: 01-03-2022 Physician Emergency department Note dEPARTMENT of Emergency Medicine CHIEF COMPLAINT URI HPI Claudia Pittman is a 61 y.o. female with past medical history of HTN, asthma who presents to the ED after episode of SOB and neck pain. Patient states she was walking to the [facility] and had walked about a mile. States she had to stop multiple times due to SOB. States this has been normal for her the past few years and she has upcoming appointment with system administrator. States she walked up a flight of [...] for details) Medication list reviewed. Assessment: Claudia Pittman is a 61 y.o. female with past [...] rest. Patient has follow up appointment with system administrator next week. Appropriate return precautions given and all questions answered. Impression: SOB, neck pain Disposition: Discharge Opal Rahman MD Emergency Medicine, PGY-2 Opal Rahman MD Resident 01/03/22 0044 [facility] Work Phone: 01-03-2022 Note Acute Coronary Syndr ome (ACS): Initial Evaluation and Management: [email or web address] [facility] 01-03-2022 Emergency department Note Pt presents to the ED with SOB and neck pain. Pt was recently diagnosed with a URI. Given a z pack that she fimished yesterday. Was [place] the [employer] [place] when she started having SOB and neck pain. Neck pain has since stopped. 95% on RA. [facility] 09-25-2021 Note PROCEDURE: XR FOOT R T [...] by: KWESI MUNOZ Date: 2021-09-25 06:50 [facility] Evaluation note Diagnosis Shortness of breath- Primary Neck pain Cervicalgia [facility] Mouth dryness- Primary Disturbance of salivary secretion Arthralgia, unspecified joint Weight gain Other symptoms concerning nutrition, metabolism, and development Routine general medical examination at a health care facility [facility] Diagnosis RJ positive- Primary [facility] Diagnosis Acute bronchitis due to Mycoplasma pneumoniae- Primary Acute bronchitis documented in this encounter [facility] Summary Purpose Family History No Family History [...] Referral Specialty Diagnoses / Procedures Referred By Contac t Referred To Contact Procedures ECG Washington Azar MD [address] [place] [phone] Referral ID Status Reason Start Date Expiration Date V isits Requested Visits Authorized [id number] Pending Review 01/03/2022 01/28/2023 1 1 Additional Source Comments INFORMATION SOURCE (unrecogn ized section and content) DATE CREATED AUTHOR 05/09/2021 [facility] dical Specialist DATE CREATED AUTHOR AUTHOR'S ORGANIZ ATION 02/11/2022 [facility] DATE CREATED AUTHOR AUTHOR'S ORGANIZ ATION 06/22/2022 [facility] DATE CREATED AUTHOR AUTHOR'S ORGANIZ ATION 07/23/2023 [facility] DATE CREATED AUTHOR AUTHOR'S ORGANIZ ATION 07/23/2023 [facility] [facility] DATE CREATED AUTHOR AUTHOR'S ORGANIZ ATION 11/12/2023 [facility] DATE CREATED AUTHOR AUTHOR'S ORGANIZ ATION 01/05/2024 [facility] EPIC DATE CREATED AUTHOR AUTHOR'S ORGANIZ ATION 01/11/2024 [facility] Reason for Visit (unrecogniz ed section and content) Reason Comments URI Reason Comments Mouth Issue Patient presents tod ay for mouth issue. Patient states that her tongue feels like it is burning. Reason Comments Sore Throat Scheduled Active and Recently Administ ered Medications [...] (Given - Provid er: Shelly Rain RN) Care Teams (unrecognized sec tion and content) [employer] Relationship Specialty Start Date End Date Ella Fofana NP [address] [place] [address] PCP - [employer] 06/22/21 Francesca Byrd MD [address] [place] [address] PCP - General Family Medicine 07/16/22 Caty Rivera CNM [address] [facility] [place] [address] Obstetrics and Gynecology 07/16/22 [employer] Relationship Specialty Start Date End Date Ella Fofana NP [address] [place] [address] PCP - [employer] 06/22/21 Francesca Byrd MD [address] [facility] [place] [address] PCP - General Family Medicine 07/16/22 Caty Rivera CNM [address] [facility] [place] [address] Obstetrics and Gynecology 07/16/22 [employer] Relationship Specialty Start Date End Date Ella Fofana NP [address] [facility] [address] PCP - [employer] 06/22/21 Francesca Byrd MD [address] [place] [address] PCP - General Family Medicine 07/16/22 Caty Rivera CNM [address] [facility] [place] [address] Obstetrics and Gynecology 07/16/22 [employer] Relationship Specialty Start Date End Date Ella Fofana NP [address] [place] [address] PCP - [employer] 06/22/21 Francesca Byrd MD [address] [facility] [place] [address] PCP - General Family Medicine 07/16/22 Caty Rivera CNM [address] [facility] [place] [address] Obstetrics and Gynecology 07/16/22 FOR RECORDS PERTAINING TO PATIENTS WHO ARE [...] BE BASED ON THE PRIMARY CLINICAL RECORDS. [facility]. provides no warranty or guarantee of the accuracy or completeness of information in this document.
[2024-01-21 16:06] VITALS: BP 178/93; PULSE 74; TEMP 36.7; O2SAT 96; BMI 30.8
--- NOTE | 2024-01-21 17:16 | CT_ITS ---
The [address] [address] Patient Name: SHELLEY PITTMAN MRN: [id number] date: 1960 Sex: F Assigned Patient Location: ER Current Patient Location: ER Accession/Order Number: [id number] Exam Date: 01/21/2024 18:15 Report Date: 01/21/2024 20:06 At the request of: SAURABH DYSON Procedure: CT abdomen pelvis w con CT ABDOMEN AND PELVIS WITH CONTRAST: INDICATION: Injury, left upper quadrant and left lower ribs. COMPARISON: 07/17/2023. TECHNIQUE:Multiple thin section transaxial slices were acquired through the abdomen and pelvis with intravenous contrast. Coronal and sagittal reconstructed images were reviewed. Oral contrastWas not administered. FINDINGS: LOWER CHEST: The lower chest is unremarkable. LIVER: The liver is unremarkable. GALLBLADDER AND BILIARY SYSTEM: No obvious ductal dilation. No calcified stones. SPLEEN: The spleen is unremarkable. PANCREAS: The pancreas is unremarkable. ADRENAL GLANDS: The adrenal hemorrhage that was present previously has resolved. There is mild nodular thickening of the right adrenal gland. The left adrenal gland is within normal limits. KIDNEYS AND URETERS: There is no hydronephrosis of the kidneys.There is a similar cyst in the left kidney. There is a nonobstructive left renal calculus anteriorly. The ureters are within normal limits without obstructing urologic calcifications. VASCULATURE: Atherosclerotic plaque is present in the abdominal aorta without aneurysm. PERITONEUM/RETROPERITONEUM: No free air or free fluid is present. LYMPH NODES: No suspicious lymphadenopathy. GASTROINTESTINAL TRACT: The bowel is normal in caliber.No acute inflammatory changes are present in the bowel.The appendix is not well delineated and may be absent or diminutive. BLADDER: The urinary bladder is unremarkable. REPRODUCTIVE SYSTEM: Reproductive system is unremarkable. BODY WALL: There is a tiny fat-containing umbilical hernia. BONES: There is degenerative disc disease throughout the lumbar spine. No acute osseous injuries are present. The visualized ribs are unremarkable. CT/CT abdomen pelvis w con IMPRESSION: Stable chronic findings in the abdomen and pelvis as discussed above. No acute findings are present. Electronically authenticated by: TAYLOR QURESHI Date: 01/21/2024 20:06
--- NOTE | 2024-01-21 17:17 | ED.GENADUL1 ---
Documented by User: Bishnu Lanier MD 01/23/24 11:07 HPI HPI - General Adult General Chief complaint: Trauma Stated complaint: INJURED BELLY UNDER RIB Time Seen by Provider: 01/21/24 17:11 Mode of arrival: walk-in History of Present Illness HPI narrative: 63-year-old female presents for pain in her left upper quadrant of her abdomen. 2 days ago she was leaning over a freezer at a store and the edge of the freezer pushed into her left upper quadrant and rib area. She did not fall. It did not hurt much right away but then later she developed some pain and the pain is moderate. No vomiting or diarrhea. She does not complain of shortness of breath. Related Data Previous Rx's ?Medication ?Instructions ?Recorded methocarbamol 750 mg tablet 750 mg PO Q6H PRN pain #30 tabs 01/21/24 Allergies Allergy/AdvReac Type Severity Reaction Status Date / Time Penicillins Allergy Verified 08/02/23 06:04 Opioid HPI Opioid Management Most Recent Opioid Data: Last Pain Scale 5 08/02/23 08:11 08/02/23 Review of Systems ROS Narrative A ten point review of systems is negative except as noted above. PFSH PFSH Social History Little interest or pleasure in doing things: not at all Feeling down, depressed, or hopeless: not at all Exam Narrative Exam Narrative: Nurses note and vital signs reviewed and patient is not hypoxic. General: The patient appears in no apparent distress. Skin: Warm, dry, no pallor noted. There is no rash noted. Head: Normocephalic, atraumatic Eye: Normal conjunctiva, no drainage Ears, Nose, Mouth, and Throat: oral mucosa is moist. Nares patent. Cardiovascular: Regular Rate and Rhythm Respiratory: Patient is in no distress, no accessory muscle use, lungs are clear to auscultation, no wheezing, rales or rhonchi Back: non-tender GI: Soft and nondistended. Tenderness present in the left upper quadrant and along the left lower rib margin. Skin intact. The rest of the abdomen is nontender. Musculoskeletal: The patient has no evidence of calf tenderness, no pitting edema, symmetrical pulses noted bilaterally Neurological: A&O, normal speech Psychiatric: Cooperative Constitutional Vital Signs, click to edit/add: Last Vital Signs Temp 98.1 F 01/21/24 16:06 Pulse 77 01/21/24 20:51 Resp 18 01/21/24 20:51 BP 160/90 H 01/21/24 20:51 Pulse Ox 97 01/21/24 20:51 O2 Del Method Room Air 01/21/24 20:51 Course Vital Signs Vital signs: Vital Signs Temperature 98.1 F 01/21/24 16:06 Pulse Rate 74 01/21/24 16:06 Respiratory Rate 18 01/21/24 16:06 Blood Pressure 178/93 H 01/21/24 16:06 Pulse Oximetry 96 01/21/24 16:06 Oxygen Delivery Method Room Air 01/21/24 16:06 Temperature 98.1 F 01/21/24 16:06 Pulse Rate 77 01/21/24 20:51 Respiratory Rate 18 01/21/24 20:51 Blood Pressure 160/90 H 01/21/24 20:51 Pulse Oximetry 97 01/21/24 20:51 Oxygen Delivery Method Room Air 01/21/24 20:51 Medical Decision Making Lab Data Labs: Lab Results 01/21/24 Range/Units 17:25 WBC 8.1 (4.0-11.0) 10^3/uL RBC 4.37 (4.20-5.40) 10^6/uL Hgb 13.6 (12.0-16.0) g/dL Hct 39.4 (36.0-48.0) % MCV 90.2 (81.0-99.0) fL MCH 31.1 (26.7-34.0) pg MCHC 34.5 (29.9-35.2) g/dL RDW 11.8 (11.0-15.0) % Plt Count 307 (150-450) 10^3/uL MPV 8.9 L (9.5-13.5) fL Neut % (Auto) 62.2 (43.0-75.0) % Lymph % (Auto) 22.4 (20.5-60.0) % [place] % (Auto) 12.3 H (1.7-12.0) % Eos % (Auto) 2.5 (0.9-7.0) % Baso % (Auto) 0.4 (0.2-2.0) % Neut # (Auto) 5.1 (1.4-6.5) 10^3/uL Lymph # (Auto) 1.8 (1.2-3.8) 10^3/uL [place] # (Auto) 1.0 H (0.3-0.8) 10^3/uL Eos # (Auto) 0.2 (0.0-0.7) 10^3/uL Baso # (Auto) 0.0 (0.0-0.1) 10^3/uL Abs Immat Gran (auto) 0.02 (0.00-0.03) 10^3/uL Imm/Tot Granulo (auto) 0.2 (0.0-0.5) % Sodium 142 (136-145) mmol/L Potassium 3.1 L (3.5-5.1) mmol/L Chloride 105 (98-107) mmol/L Carbon Dioxide 26.4 (21.0-32.0) mmol/L Anion Gap 13.7 BUN 12.0 (7.0-18.0) mg/dL Creatinine 0.67 (0.55-1.02) mg/dL Est GFR ( Amer) >60 (>=60 mL/min/1.73m^2) Est GFR (Non-Af Amer) >60 (>=60 mL/min/1.73m^2) BUN/Creatinine Ratio 17.9 Glucose 90 (74-106) mg/dL Calcium 8.7 (8.5-10.1) mg/dL Imaging Data CT scan - abdomen: Radiologist's impression: ITS Impressions Abdomen/Pelvis CT 01/21/24 17:16 IMPRESSION: Stable chronic findings in the abdomen and pelvis as discussed above. No acute findings are present. Electronically authenticated by: TAYLOR QURESHI Date: 01/21/2024 20:06 Discharge Plan Discharge Chief Complaint: Trauma Clinical Impression: Abdominal pain Patient Disposition: Home, Self-Care Time of Disposition Decision: 20:30 Prescriptions / Home Meds: New methocarbamol 750 mg tablet 750 mg PO Q6H PRN (Reason: pain) Qty: 30 0RF Print Language: Togolese Instructions: Abdominal Pain (ED) Referrals: ANA FOSTER [Primary Care Provider] - 1 week Discharge Date/Time: 01/21/24 20:51 Documented by User: Chente Crockett 01/21/24 20:34 HPI HPI - General Adult General Chief complaint: Trauma Stated complaint: INJURED BELLY UNDER RIB Time Seen by Provider: 01/21/24 17:11 Related Data Previous Rx's ?Medication ?Instructions ?Recorded methocarbamol 750 mg tablet 750 mg PO Q6H PRN pain #30 tabs 01/21/24 Allergies Allergy/AdvReac Type Severity Reaction Status Date / Time Penicillins Allergy Verified 08/02/23 06:04 Opioid HPI Opioid Management Most Recent Opioid Data: Last Pain Scale 5 08/02/23 08:11 08/02/23 PFSH PFSH Social History Little interest or pleasure in doing things: not at all Feeling down, depressed, or hopeless: not at all Exam Constitutional Vital Signs, click to edit/add: Last Vital Signs Temp 98.1 F 01/21/24 16:06 Pulse 77 01/21/24 20:51 Resp 18 01/21/24 20:51 BP 160/90 H 01/21/24 20:51 Pulse Ox 97 01/21/24 20:51 O2 Del Method Room Air 01/21/24 20:51 Course Vital Signs Vital signs: Vital Signs Temperature 98.1 F 01/21/24 16:06 Pulse Rate 74 01/21/24 16:06 Respiratory Rate 18 01/21/24 16:06 Blood Pressure 178/93 H 01/21/24 16:06 Pulse Oximetry 96 01/21/24 16:06 Oxygen Delivery Method Room Air 01/21/24 16:06 Temperature 98.1 F 01/21/24 16:06 Pulse Rate 77 01/21/24 20:51 Respiratory Rate 18 01/21/24 20:51 Blood Pressure 160/90 H 01/21/24 20:51 Pulse Oximetry 97 01/21/24 20:51 Oxygen Delivery Method Room Air 01/21/24 20:51 Medical Decision Making MDM Narrative Medical decision making narrative: Pt was seen and examined by Dr Lanier and then signed out to me at 7pm shift change. See his noted for his HPI and initial exam findings. I saw and examined the patient - no external hematoma or palpable mass in abdomen. LUQ tenderness as well as tenderness along the left lower rib cage. No flank tenderness. No cardiopulmonary abnormality noted on exam. Labs were notable only for minimally decreased potassium. CT does not reveal any acute findings or anything to account for the patient's pain - no splenic injury, no ureteral stones, no intra-abdominal or SQ hematoma. Patient informed of results, given oral potassium before discharge and a copy of her CT to share with her PCP during follow up. prescribed Robaxin for pain. OK to take tylenol and ibuprofen as needed. ED return if worse. Lab Data Lab results reviewed: Yes I reviewed the patient's lab results Labs: Lab Results 01/21/24 Range/Units 17:25 WBC 8.1 (4.0-11.0) 10^3/uL RBC 4.37 (4.20-5.40) 10^6/uL Hgb 13.6 (12.0-16.0) g/dL Hct 39.4 (36.0-48.0) % MCV 90.2 (81.0-99.0) fL MCH 31.1 (26.7-34.0) pg MCHC 34.5 (29.9-35.2) g/dL RDW 11.8 (11.0-15.0) % Plt Count 307 (150-450) 10^3/uL MPV 8.9 L (9.5-13.5) fL Neut % (Auto) 62.2 (43.0-75.0) % Lymph % (Auto) 22.4 (20.5-60.0) % [place] % (Auto) 12.3 H (1.7-12.0) % Eos % (Auto) 2.5 (0.9-7.0) % Baso % (Auto) 0.4 (0.2-2.0) % Neut # (Auto) 5.1 (1.4-6.5) 10^3/uL Lymph # (Auto) 1.8 (1.2-3.8) 10^3/uL [place] # (Auto) 1.0 H (0.3-0.8) 10^3/uL Eos # (Auto) 0.2 (0.0-0.7) 10^3/uL Baso # (Auto) 0.0 (0.0-0.1) 10^3/uL Abs Immat Gran (auto) 0.02 (0.00-0.03) 10^3/uL Imm/Tot Granulo (auto) 0.2 (0.0-0.5) % Sodium 142 (136-145) mmol/L Potassium 3.1 L (3.5-5.1) mmol/L Chloride 105 (98-107) mmol/L Carbon Dioxide 26.4 (21.0-32.0) mmol/L Anion Gap 13.7 BUN 12.0 (7.0-18.0) mg/dL Creatinine 0.67 (0.55-1.02) mg/dL Est GFR ( Amer) >60 (>=60 mL/min/1.73m^2) Est GFR (Non-Af Amer) >60 (>=60 mL/min/1.73m^2) BUN/Creatinine Ratio 17.9 Glucose 90 (74-106) mg/dL Calcium 8.7 (8.5-10.1) mg/dL Imaging Data CT scan - abdomen: Radiologist's impression: ITS Impressions Abdomen/Pelvis CT 01/21/24 17:16
[2024-01-21 17:33] LABS: Basophils Percent Auto 0.4 % (0.2-2.0); Eosinophils Absolute Auto 0.2 10^3/uL (0.0-0.7); Eosinophils Percent Auto 2.5 % (0.9-7.0); Hematocrit 39.4 % (36.0-48.0); Hemoglobin 13.6 g/dL (12.0-16.0); Immature Granulocytes Abs Auto 0.02 10^3/uL (0.00-0.03); Immature Granulocytes Pct Auto 0.2 % (0.0-0.5); Lymphocytes Absolute Auto 1.8 10^3/uL (1.2-3.8); Lymphocytes Percent Auto 22.4 % (20.5-60.0); Mean Corpuscular HGB Conc 34.5 g/dL (29.9-35.2); Mean Corpuscular Hemoglobin 31.1 pg (26.7-34.0); Mean Corpuscular Volume 90.2 fL (81.0-99.0); Mean Platelet Volume 8.9 fL (9.5-13.5); Monocytes Percent Auto 12.3 % (1.7-12.0); Neutrophils Absolute Auto 5.1 10^3/uL (1.4-6.5); Neutrophils Percent Auto 62.2 % (43.0-75.0); Platelet Count 307 10^3/uL (150-450); Red Blood Count 4.37 10^6/uL (4.20-5.40); Red Cell Distribution Width 11.8 % (11.0-15.0); White Blood Count 8.1 10^3/uL (4.0-11.0)
[2024-01-21 17:43] LABS: Anion Gap 13.7; BUN Creatinine Ratio 17.9; Calcium 8.7 mg/dL (8.5-10.1); Carbon Dioxide 26.4 mmol/L (21.0-32.0); Chloride 105 mmol/L (98-107); Estimated GFR (African America >60 (>=60 mL/min/1.73m^2); Estimated GFR (Non-African Ame >60 (>=60 mL/min/1.73m^2); Glucose 90 mg/dL (74-106); Potassium 3.1 mmol/L (3.5-5.1); Sodium 142 mmol/L (136-145)
[2024-01-21] MEDS: POTASSIUM CHLORIDE 10 MEQ ER TABLET 40 MEQ PO (20:26)
[2024-01-21 20:51] VITALS: BP 160/90; PULSE 77; O2SAT 97
== END 2024-01-21 20:51 | disposition home or self-care (01) ==
PROVIDERS: Emergency Medicine; Emergency Provider Emergency Medicine; PCP Family Medicine
DX: R10.12 Left upper quadrant pain (principal)
CPT/HCPCS: 36415; 74177; 80048; 85025; 99284; Q9967